=== PATIENT | male | born 1940 | race Caucasian/White ===

== ENCOUNTER 2016-10-15 07:30 | Inpatient (IN) | payer MEDICARE, BC ==
--- NOTE | 2016-10-13 05:18 | HP ---
PREOPERATIVE HISTORY AND PHYSICAL: DATE OF OFFICE VISIT: 10/09/16 DATE OF SURGERY: 10/15/16 ATTENDING SURGEON: Latasha Meier MD PROCEDURE: Left total shoulder reverse. CHIEF COMPLAINT: Left shoulder pain. HISTORY OF PRESENT ILLNESS: Mr. Mendosa is a 76-year-old male who presents to the clinic complaining of ongoing left shoulder pain for several years due to severe osteoarthritis. The patient has failed conservative measures and therefore has agreed to undergo a left total shoulder reversal with Dr. Meier 10/15/16. PAST MEDICAL HISTORY: 1. Hypertension. 2. COPD. 3. Prostate cancer. 4. Vertigo. 5. Cirrhosis. 6. Atrial fibrillation. 7. Coronary artery disease. PAST SURGICAL HISTORY: 1. Prostate biopsy. 2. Colon polyp resection. 3. Tonsillectomy and adenoidectomy. 4. Hernia repair. 5. Liver stent placement. 6. Coronary disease bypass grafting. 7. Five cardiac catheterizations. MEDICATIONS: 1. Oxygen at 2 L per minute at night, flutter use is indicated twice a day. 2. Nebulizer kit tubing and mouthpiece 1 unit nebulization every 4 to 6 hours as needed. 3. Ipratropium bromide/albuterol sulfate 0.5/2.5, 3 mg per 3 mL one unit every 6 hours as needed. 4. Symbicort 80/4.5 mcg per ACT 2 puffs twice daily. 5. Isosorbide mononitrate ER 30 mg 1 by mouth every day. 6. Fluticasone propionate 50 mcg/ACT inhaled 2 into each nostril daily. 7. Furosemide 20 mg one half tab by mouth every morning. 8. Lactulose 10 g per 50 mL, 50 mL every day in the a.m. by mouth. 9. Losartan potassium 50 mg 1 by mouth every day. 10. Spironolactone 50 mg 1 by mouth daily in the morning. 11. Ecotrin low strength 81 mg 1 tablet daily. 12. Multivitamins 1 capsule daily. 13. Tums 500 mg as needed. 14. Pantoprazole sodium 40 mg 1 by mouth every day. ALLERGIES: PENICILLIN and PRAVASTATIN. FAMILY HISTORY: Positive for heart disease and stroke. SOCIAL HISTORY: A 76-year-old male lives with his . He is a former smoker with a history of two packs of cigarettes per day. He quit in the year 1999. He denies alcohol or illicit drug use. REVIEW OF SYSTEMS: General: Negative for fevers, chills, or night sweats. No known anesthesia problems. HEENT: Positive for headaches. Negative for lightheadedness or syncopal episodes. Integumentary: Negative for abrasions, lesions, or open wounds. Cardiothoracic: Positive for mild edema and hypertension. Negative for chest pain or palpitations. Pulmonary: Positive for shortness of breath with exertion, chronic cough, and COPD. GI: Positive for GERD. Negative for nausea, vomiting, diarrhea, and constipation. : Negative for nocturia, urinary frequency, urinary urgency, history of UTIs, or kidney problems. Positive for history of prostate cancer. Musculoskeletal: Positive for the current complaint. Neuro: Negative for paresthesias, numbness , history of seizure, stroke or epilepsy. Endocrine: Negative for diabetes or thyroid issues. Hematologic: Positive for easy bleeding and bruising. Negative for anemia. Negative for history of DVT. Infectious Disease: Negative for history of MRSA, hep C, or HIV. PHYSICAL EXAMINATION GENERAL: Well-developed, well-nourished 76-year-old male, in no acute distress. VITAL SIGNS: Height 72, weight 260, blood pressure 132/70, respiratory rate 20 , BMI 35.3. HEENT: Normocephalic, atraumatic. PERRLA. NECK: Supple. Throat clear. PULMONARY: Lungs clear to auscultation bilaterally. No wheezing, rhonchi, or rales. CARDIO: Regular rate and rhythm. S1 and S2. No murmurs, rubs, or gallops. No edema. ABDOMEN: Positive bowel sounds. Soft and nontender. NEURO: Alert and oriented x3. Cranial nerves grossly intact. Sensation intact to light touch distally. MUSCULOSKELETAL: Left shoulder: Skin is intact. No erythema or warmth. No obvious deformity. Forward flexion 40 degrees, abduction to 50, external rotation to 35, internal rotation to T10, +4 to 5 strength to rotator cuff testing, +2 radial pulse. Sensation intact to light touch distally. STUDIES: X-rays and MRIs reveal superior head migration of the humeral head, severe osteoarthritis, and a complete tear of the supraspinatus and infraspinatus tendon with a partial thickness tear of the subscapularis tendon. IMPRESSION: Severe left shoulder osteoarthritis. PLAN: The patient is scheduled to undergo a left total shoulder reversal with Dr. Meier on 10/15/16. He will return to the clinic in 10-14 days postop for followup and suture removal. The patient has been cleared by his primary care physician, his wagon washer, and his multimedia instructional designer for surgery. He was instructed to stop aspirin 5 days before surgery. The patient was prescribed Percocet which was sent his pharmacy for postoperative pain management. The patient has lactulose at home for which he will use for opioid-induced constipation. BEAU PORTER [id number]/[facility] #: [id number] OTF
[2016-10-29] MEDS ORDERED: Famotidine IV* 10 MG/ML 2 ML (20 mg) IV ONE (06:00)
[2016-10-29] MEDS ORDERED: Buffered Lidocaine 1% SYR 3ML* 3 ML/SYR SYRINGE INTRADERM ONE (06:00)
[2016-10-29] MEDS ORDERED: Albuterol 2.5 MG/3 ML NEB.SOL* (0.083%) INH ONE (06:01)
[2016-10-29] MEDS ORDERED: Clindamycin 900 MG IVPREMIX(* 900 MG/50 ML SDV IV ONE (06:11)
[2016-10-29] MEDS ORDERED: Albuterol 2.5 MG/3 ML NEB.SOL* (0.083%) ONE (06:11)
[2016-10-29] MEDS ORDERED: Famotidine IV* 10 MG/ML 2 ML (20 mg) ONE (06:11)
[2016-10-29] MEDS ORDERED: Buffered Lidocaine 1% SYR 3ML* 3 ML/SYR SYRINGE ONE (06:11)
[2016-10-29] MEDS ORDERED: Bupivacaine 0.25% SDV* 30 ML ONE (07:30)
[2016-10-29] MEDS ORDERED: Midazolam* 1 MG/ML 2 ML VIAL (2 MG) ONE (07:43)
[2016-10-29] MEDS ORDERED: KETAMINE HCL* 50 MG/ML 10 ML VIAL ONE (07:43)
[2016-10-29] MEDS ORDERED: fentaNYL* 50 MCG/ML 2 ML VIAL (100 MCG VIAL) ONE (09:09)
[2016-10-29] MEDS ORDERED: EPHEDrine (Pressors)* 50 MG/ML VIAL ONE (09:18)
[2016-10-29] MEDS ORDERED: Propofol* 10 MG/ML 20 ML BTL IV PUSH ONE (09:18)
[2016-10-29] MEDS ORDERED: Dexamethasone IV* 4 MG/ML 1 ML (4 MG) ONE (09:18)
[2016-10-29] MEDS ORDERED: Lidocaine 2% MPF* 2 ML VIAL ONE (09:18)
[2016-10-29] MEDS ORDERED: Ondansetron INJ* 2 MG/ML VIAL ONE (09:18)
[2016-10-29] MEDS ORDERED: Succinylcholine* 20 MG/ML 10 ML VIAL ONE (09:18)
[2016-10-29] MEDS ORDERED: HYDROmorphone INJ* 1 MG/ML CARPUJECT SYRINGE ONE (10:21)
[2016-10-29] MEDS ORDERED: HYDROmorphone INJ* 1 MG/ML CARPUJECT SYRINGE IV PRN (10:45)
[2016-10-29] MEDS ORDERED: oxyCODONE TAB* 5 MG TAB PO PRN ×2 (10:45→12:01)
[2016-10-29] MEDS ORDERED: DiMENhydriNATE IV* 50 MG/ML VIAL IV PUSH PRN (10:45)
[2016-10-29] MEDS ORDERED: Acetaminophen TAB* 325 MG PO PRN (11:52)
[2016-10-29] MEDS ORDERED: diPHENhydraMINE IV* 50 MG/ML 1 ml VIAL (BENADRYL) IV PRN (12:01)
[2016-10-29] MEDS ORDERED: Morphine INJ* 2 MG/ML 1 ML CARPUJECT IV PRN (12:01)
[2016-10-29] MEDS ORDERED: oxyCODONE/Acetamin 5/325 MG* TAB PO PRN (12:01)
[2016-10-29] MEDS ORDERED: Magnesium Hydroxide LIQ* 30 ML UDC PO PRN (12:01)
[2016-10-29] MEDS ORDERED: Bisacodyl SUPP* 10 MG SUPP PR PRN (12:01)
[2016-10-29] MEDS ORDERED: Temazepam CAP* 15 MG PO PRN (12:01)
[2016-10-29] MEDS ORDERED: Ondansetron INJ* 2 MG/ML VIAL IV PRN (12:01)
[2016-10-29] MEDS ORDERED: Polyethylene Glycol 3350* 17 GM PACKET PO PRN (12:01)
[2016-10-29] MEDS ORDERED: Calcium Carbonate CHEW TAB* 500 MG (TUMS) PO SCH (13:00)
--- NOTE | 2016-10-29 13:06 | RAD ---
INDICATION: Total shoulder reverse left COMPARISON: June 16, 2016 TECHNIQUE: APand axillary were obtained. FINDINGS: There is interval reverse left shoulder arthroplasty. Both components appear well seated. There are soft tissue changes compatible with recent surgery. IMPRESSION: TOTAL REVERSE LEFT SHOULDER ARTHROPLASTY.
[2016-10-29 13:53] LABS: Hematocrit 39 % (42-52); Hemoglobin 13.3 g/dl (14.0-18.0)
[2016-10-29] MEDS: Clindamycin 600 MG IVPREMIX(* 600 MG/50 ML SDV IV SCH ×2 (15:33→22:00)
[2016-10-29] MEDS: Mometasone/Formoter 100/5 MDI INH SCH (19:41)
[2016-10-29] MEDS: oxyCODONE/Acetamin 5/325 MG* TAB PO PRN (20:10)
[2016-10-29] MEDS: Docusate CAP* 100 MG PO SCH (20:10)
[2016-10-29] MEDS: Omeprazole CAP* 20 MG PO SCH (20:10)
[2016-10-29] MEDS ORDERED: Albuterol/Ipratropium NEB.SOL* Albuterol 2.5 MG/Ipratropium 0.5 MG 3 ML INH SCH (21:00)
--- NOTE | 2016-10-29 22:11 | CONS ---
MEDICAL CONSULTATION: DATE OF CONSULT: 10/29/16 PRIMARY EVENT MARKETING REPRESENTATIVE: Dr. Hernandez. PRIMARY ARCHITECTURAL DRAFTING INSTRUCTOR: Dr. Shelley. PRIMARY SCARFER OPERATOR: Dr. Torres. ADMITTING PROVIDER: BEAU Will. SUPERVISING PHYSICIAN: Adalberto Harp MD. CHIEF COMPLAINT: Status post left reverse shoulder by Dr. Meier earlier today. 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 Meier earlier today. Hospitalist group has been asked to consult for medical comanagement during his hospital stay. The patient was seen by his primary care provider, Dr. Hernandez, Dr. Shelley and Dr. Torres preoperatively. The patient reports that his chronic medical conditions have been relatively well controlled. He was relatively recently treated for a pneumonia, but that has completely resolved. The patient is doing quite well postoperatively, he reports minimal pain and no significant nausea or vomiting. He has been able to resume a normal diet. PAST MEDICAL HISTORY: 1. Hypertension. 2. COPD, requiring nighttime oxygen of 2 L. 3. Prostate cancer, status post radiation. 4. Cirrhosis secondary to nonalcoholic steatohepatitis. 5. Esophageal varices, status post esophageal ligations on numerous occasions and status post TIPS procedure. 6. Chronic atrial fibrillation, not anticoagulated due to multiple variceal bleeds, followed by Dr. Hernandez. 7. Coronary artery disease, status post 5-vessel CABG with last echo showing normal left ventricular ejection fraction and a fixed defect on last Lexiscan in the inferior lateral wall. 8. Colon cancer, status post partial colectomy. 9. History of asbestos exposure. PAST SURGICAL HISTORY: 1. Prostate biopsy. 2. Left sigmoid partial colectomy. 3. Tonsillectomy. 4. Umbilical hernia repair. 5. Esophageal ligation x4. 6. TIPS in March 2013. 7. Five-vessel CABG, August 2006. HOME MEDICATIONS: 1. DuoNeb inhaled twice daily as needed for shortness of breath. 2. Aspirin 81 mg p.o. daily. 3. Symbicort 1 puff inhaled twice daily. 4. Tums 500 mg tablet 1 p.o. as needed for indigestion. 5. Fluticasone nasal spray, 2 sprays in both nares once daily. 6. Furosemide 10 mg p.o. daily. 7. Isosorbide mononitrate extended release 30 mg p.o. daily. 8. Lactulose 15 mL p.o. on Thursday, Thursday, Thursday. 9. Losartan 50 mg p.o. daily. 10. Multivitamin 1 tablet p.o. daily. 11. Protonix 40 mg p.o. b.i.d. 12. Spironolactone 50 mg p.o. daily. FAMILY HISTORY: The patient reports a family history of heart disease and stroke. SOCIAL HISTORY: The patient lives at home with his . 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 He denies any regular alcohol consumption. He was a former smoker and quit in the year 1999. Previous 70-kvvy-fneu smoking history. He has 2 children. REVIEW OF SYSTEMS: As noted above in HPI and is otherwise unremarkable. PHYSICAL EXAM: Recent vitals: Temperature 98.7 degrees Fahrenheit, pulse 58 beats per minute, respiratory rate 14 per minute, oxygen saturation 96% on room air, and blood pressure 121/47 mmHg. General: This is a very pleasant elderly gentleman, lying comfortably in the hospital bed in no acute distress. HEENT: Head is normocephalic, atraumatic and mucous membranes are pink and moist. Cardiovascular: Slightly irregular rhythm, but no murmurs, rubs or gallops appreciated. Respiratory: Lungs are clear to auscultation without wheezes, crackles, or rhonchi. Abdomen: Abdomen is mildly protuberant but no tenderness to palpation and otherwise soft. Extremities: No lower extremity edema appreciated. Left shoulder is in a sling. Psych: The patient is alert and appropriately oriented. DIAGNOSTIC STUDIES/LAB DATA: Reviewed pre-op labs from 09/17/16, which showed a pre-op hemoglobin of 15.8, CBC and comprehensive metabolic panel otherwise unremarkable. Post-op hemoglobin of 13.3 and a INR of 1.2. Imaging: Reviewed echocardiogram from 2013, which shows normal left ventricular ejection fraction. ASSESSMENT AND PLAN: This is a 76-year-old gentleman with a history of hypertension, chronic obstructive pulmonary disease, prostate cancer status post radiation, cirrhosis with chronic liver failure secondary to MORROW, esophageal varices status post ligation and TIPS procedure. Chronic atrial fibrillation, not anticoagulated, coronary artery disease status post 5-vessel CABG, colon cancer status post partial colectomy as well as asbestos exposure who is day 0 status post left reverse shoulder with Dr. Meier. 1. Status post left reverse shoulder by Dr. Meier. Surgical management per orthopedic surgery group including DVT prophylaxis, pain management, and discharge planning. 2. Hypertension - hold losartan and furosemide in the immediate postop period. Could perhaps resume on day 2 depending on labs and blood pressure. The patient is not on a beta reena chronically. 3. Chronic obstructive pulmonary disease - continue home inhaled medications including Symbicort, p.r.n. DuoNeb as well as nighttime oxygen at 2 L. 4. Chronic liver failure secondary to cirrhosis secondary to nonalcoholic steatohepatitis - continue his lactulose as stated above. Hold his furosemide at least postop day 0 and 1, likely can resume on postop day 2. Continue spironolactone. 5. Atrial fibrillation which is chronic - does not require beta-renea and is not anticoagulated due to his history of variceal bleeds. 6. Coronary artery disease, status post 5-vessel CABG - continue aspirin and isosorbide. It does not appear that he is on a statin, presumably because of his liver disease. 7. History of asbestos exposure. 8. History of colon cancer, status post partial colectomy. 9. History of esophageal varices, status post ligation and TIPS procedure - continue lactulose as previously scheduled and as needed for constipation. 10. Code status - the patient is full code. 11. DVT prophylaxis per Orthopedic Surgery. It appears that he has enoxaparin 30 mg subcu q.24 h. ordered, which seems appropriate. 12. Healthcare proxy is the patient's . DISPOSITION: Discharge planning per Orthopedic Surgery. The patient is currently in ICU for telemetry monitoring postop. Assuming that he has an uneventful night this evening, he can likely be transferred to the surgical floor tomorrow. I do not see any other acute medical concerns [place] [id number]/[facility] #: [id number] [facility]ENT[facility]ric
[2016-10-30] MEDS: oxyCODONE/Acetamin 5/325 MG* TAB PO PRN ×2 (03:04→08:51)
[2016-10-30] MEDS: Clindamycin 600 MG IVPREMIX(* 600 MG/50 ML SDV IV SCH (05:09)
[2016-10-30 05:40] LABS: Hematocrit 35 % (42-52); Hemoglobin 12.2 g/dl (14.0-18.0)
[2016-10-30 05:53] LABS: BUN/Creatinine Ratio 18.3 (8-20); EGFR African American 84.8 (>60); EGFR Non-African American 65.9 (>60); Potassium 4.9 mmol/L (3.5-5.0)
--- NOTE | 2016-10-30 07:31 | PN ---
Progress Note - Progress Note SOAP: Subjective: POD#1 from left reverse shoulder arthroplasty. feels well. no events overnight. monitored in ICU. Objective: Temp Pulse Resp BP Pulse Ox 98.8 F 51 14 123/98 96 10/30/16 04:00 10/30/16 02:00 10/30/16 07:00 10/30/16 07:00 10/30/16 07:00 NAD. pleasant. Able to flex/ext elbow/wrist.Sensate to light touch along 1st dws , index and long finger, and ulnar aspect of small finger. 2+ radial pulse. brisk cap refill. drain and dressing in place Laboratory Results - last 24 hr 10/29/16 10/30/16 10/30/16 13:47 05:23 05:23 Hgb 13.3 L 12.2 L Hct 39 L 35 L Sodium 128 L Potassium 4.9 Chloride 101 Carbon Dioxide 21 L Anion Gap 6 BUN 20 Creatinine 1.09 Est GFR ( Amer) 84.8 Est GFR (Non-Af Amer) 65.9 BUN/Creatinine Ratio 18.3 Glucose 244 H Calcium 8.0 L Assessment: POD#1 from reverse Plan: xrays reviewed and acceptable d/c drain prior to discharge. drain output 800 overnight dressing to be changed on POD#3. dispo home if stable heparin and scds while in hospital. completed 24 hours abx. appreciate hospitalist care f/u 10-14 days with me
--- NOTE | 2016-10-30 08:28 | OP ---
DATE OF OPERATION: 10/29/16 - ROOM #ICU-09 DATE OF : 42 SURGEON: Latasha Meier MD ASSISTANTS: 1. BEAU Azar 2. Stefani ANESTHESIOLOGIST: Dr. Pathak. ANESTHESIA: General interscalene block, an art line was placed. PRE-OP DIAGNOSIS: Left shoulder massive rotator cuff tear due to paralysis and mild arthritis. POST-OP DIAGNOSIS: Left shoulder massive rotator cuff tear due to paralysis and mild arthritis. OPERATIVE PROCEDURE: Left reverse shoulder arthroplasty. Open subpectoral biceps tenodesis. INDICATIONS: John Mendosa is a 76-year-old male who presented with left shoulder pain that has been going on for a year, but he recalled falls even in 2010. He said that he has had injections, he has tried physical therapy, he has lost a lot of motion and he cannot do his activities of daily living. He has failed conservative management. He has an extensive medical history including multiple cardiac catheterizations and bypass surgeries as well as a history of previous cancer. He has undergone preoperative risk assessment and optimization by his various doctors, and is prepared for surgery today. Risks and benefits were discussed at length which include but are not limited to bleeding, infection, damage to nerve vessels, surrounding structures, wound not healing, persistent pain, need for further surgery, dislocation, fracture, incomplete relief of pain and stiffness, loss of motion, risk of DVT, as well as risk of anesthesia. He has elected to proceed with surgery. The patient was initially scheduled for surgery two weeks ago, but due to the hospital not being prepared with implants or equipment, he had to be rescheduled to today. IMPLANTS USED: A 20 Aequalis SYNFlex glenohumeral stem size 8B with standard reverse tray and 6 mm reverse insert. Glenoid components were Aequalis glenoid reversed 2 threaded base plate size 25 x 40 mm and centered Glenosphere with a size 36 Glenosphere. ESTIMATED BLOOD LOSS: About 200 cc. COMPLICATIONS: None. DESCRIPTION OF PROCEDURE: The patient was greeted in the preoperative area by the attending surgeon. Correct extremity was marked. Consent was confirmed. The patient was then brought back to the operating suite where he was placed in supine position on the operating table. He then underwent interscalene block, which he tolerated without difficulty. An art line was placed due to his complicated medical history, after which the anesthesiologist placed the endotracheal tube. There was some difficulty with his intubation. After which examination of the shoulder was done, passively was allowed to forward flexion to about 130, externally rotated him to about 25, abducted to about 90 degrees. He was then placed in a lazy beach chair position with pillow under his knees , pillow on his abdomen as well as straps around his chest wall and abdomen. A Castanon catheter was placed. The left arm was prepped and draped in the usual sterile fashion with a prescrub of chlorhexidine soap and alcohol wipe and followed by ChloraPrep. After appropriate surgical pause indicating site, side, procedure, and administration of antibiotics, a deltopectoral incision was made. Beginning at the base of the coracoid, soft tissues were carefully dissected until the cephalic vein was identified at the fat stripe. This was then retracted laterally with the deltoid. The blunt dissection was then done to expose the clavipectoral fascia, which identified the abundant bursa that was present. This was carefully released and removed to expose the conjoint. A blunt Hohmann was placed just superior to the conjoint tendon. The shoulders and the capsule appeared to be quite tight. The conjoint tendon was identified and bluntly dissected with care not to place a retractor under that. A Kolbel retractor was used to retract the pec and the deltoid, and expose the anterior aspect of the shoulder. There was abundant bursa that was present, which was removed carefully. The proximal 1 cm of the pec tendon was then released sharply. The biceps was tenodesed using a nonabsorbable suture #2 Ti-Cron; this was then secured. The biceps was then sharply lacerated and tracked proximally to expose the subscap and the joint. After release of the adhesions on the bursal side as well as the subdeltoid bursa where the appropriate blunt retractors were placed. Care was taken to release the CA ligament. The three sutures were identified and cauterized. The subscapularis was gently peeled back with care and gentle external rotation of the shoulder; this was then tagged to help with retraction. This was removed completely and exposed the shoulder. The shoulder was then gently dislocated. The superior glenohumeral ligament was released and the shoulder was carefully dislocated. At this point , it was evident there was a massive supra- and infraspinatus tendon tear, and they were not present. Retractors were gently placed along the subdeltoid space , posterior head, and along the glenoid aspect so that the head was fully exposed. This was to allow for a full visualization of the head. There were no obvious major osteophytes. The neck cut was then outlined and marked with a Bovie. The sagittal saw was then used to cut the humeral head. This was all done very carefully with meticulous care to prevent any kind of nerve damage. At this point, the canal finder was used to find the canal, and the sounding guides were used to sound up to a size 8. The broaches were placed at 20- degree retroversion angle. These were then packed and placed, and a size 7 initially was found to have excellent purchase. The excess bone was then reamed away, and the protection plate was placed in the implant. Attention was directed to the glenoid. With a Hohmann retractor placed superiorly, the Fukuda retractor was placed posteriorly along the glenoid back wall with gentle retraction. The anterior adhesions at the subscapularis were carefully removed bluntly with care not to damage the short head of the biceps. With tension on the subscap, the middle and inferior glenohumeral ligaments were released carefully to allow for better exposure and mobilization of the subscap. The glenoid neck retractor was then used to retract the subscap and expose the anterior aspect of the glenoid. The labrum was then sharply incised as well as the superior labrum and the biceps stump as well as the anterior labrum all the way to the 5 o'clock position was then released using needle tip Bovie. Then with care and traction on the inferior tissues, the needle tip Bovie was used to carefully release the inferior aspect of the labrum to expose the inferior aspect of the glenoid, again with traction and care not to damage the nerve or any vessels. After this was done, with great care any remaining cartilage was removed off with the Huston. The size 25 guide was then placed to fit the glenoid, which was not very large. Once this was placed in the zero position, a drill guide was placed. This was then attempted to be palpated and was not palpated. At this point, this was then reamed with a size 25 reamer and then a size 29 brush filler hand. The 8 mm drill bit was then placed in a cannulated fashion to drill the larger aperture hole and then a 6 wide drill bit was drilled. It was found to measure greater than 40 mm. Therefore, a size 40 mm length base plate x 25 mm base plate was chosen. The screw within the hole was then tapped and then the base plate was placed with excellent purchase. Four variable angle locking screws were then drilled superiorly and inferiorly, and then anteriorly and posteriorly. Screws were placed with excellent purchase. Next, a size 36 Glenosphere was impacted in place with good purchase. This was then screwed down and secured with a set screw. Attention was then directed to the humerus. The humerus was then delivered through the wound. The protection plate was removed and the stem was assessed and was found to not move. Therefore, a trialing was done with a standard centered plate and a size 6 poly. An attempt at reduction was done and it was felt to be a little bit too tight and difficult to go in. Possibly due to his high riding humeral head preoperatively. Therefore, the stem was removed and about 1 mm more of the humerus was then cut. The reaming was done again beginning at a size 6 broach and then increased to a size 8 broach was found to seat well with excellent purchase. This was then reamed. The centered base plate and standard 6 mm poly was then used and the shoulder was reduced and taken through a range of motion. This allowed to have an appropriate amount of shuck, forward flexion to about 150 degrees, externally rotate to about 25 degrees, abduct to about 90 degrees. The implants were then chosen, the shoulder was dislocated. Implants were removed en mass, and taken to the back table to be prepared by the attending surgeon. A 2-0 drill bit was then used to drill holes through the lesser tuberosity and allow for passage of the sutures for subscap repair. These were passed superomedial and inferior. The #5 Ethibond sutures were passed through these. The final implant was prepared on the back table and then it was carefully impacted into place with good purchase. The shoulder was then reduced and the implants were found to be well seated. Shoulder was taken through a range of motion, which was the exact same that was done as during the trial. Wound was then copiously irrigated with sterile saline. Excess debris was removed. Sutures were then passed through the subscapularis tendon for horizontal mattress fixation with excellent purchase. A large Hemovac drain was then placed through the wound. The deltopectoral groove was closed with three nonabsorbable sutures to allow for landmark if he needs any surgery. Skin was closed in layers with 2-0 Vicryl for subcu and skin with 3-0 Monocryl. Sterile dressings were applied. 15 cc of Marcaine were injected about the wound. A Cryo/Cuff and a regular sling was then done, and he was awoken from anesthesia and transferred to PACU in stable condition. POSTOPERATIVE PLAN: He will be nonweightbearing for 6 weeks. He will have no active range of motion of the shoulder, he will be in the sling during this time. He will be allowed to have passive range of motion to about 90 degrees of forward flexion and abduction, and about 20 degrees of external rotation. He will be initially transferred to the ICU for monitor because of his cardiac history; he will be admitted at least overnight. We will remove the Castanon as well as the drain on postop day #1, and he will potentially be discharged then. He will be kept in the hospital with SCDs and Lovenox for DVT prophylaxis but discontinued when he goes home. We will see the patient back in 10 to 14 days. CC: Jesse WHITFIELD DO* [id number]/[facility] #: [id number] OTF
[2016-10-30] MEDS: Omeprazole CAP* 20 MG PO SCH (08:51)
[2016-10-30] MEDS: Mometasone/Formoter 100/5 MDI INH SCH (08:52)
[2016-10-30] MEDS: Docusate CAP* 100 MG PO SCH (08:56)
[2016-10-30] MEDS ORDERED: Fluticasone NASAL SPRAY 50MCG* 16 gm SPRAY BTL BOTH NARES SCH (09:00)
[2016-10-30] MEDS ORDERED: Isosorbide Mononitrate ER TAB* 30 MG PO SCH (09:00)
[2016-10-30] MEDS ORDERED: Losartan TAB* 25 MG PO SCH (09:00)
[2016-10-30] MEDS ORDERED: Furosemide TAB* 20 MG PO SCH (09:00)
[2016-10-30] MEDS ORDERED: Aspirin EC Low Dose* 81 MG TAB.EC PO SCH (09:00)
[2016-10-30] MEDS ORDERED: Spironolactone TAB* 25 MG PO SCH (09:00)
--- NOTE | 2016-10-30 10:41 | PN ---
Subjective Date of Service: 10/30/16 Interval History: Patient seen and examined at bedside. Pt states that he is feeling well and his pain is controlled. Denies fever, chills, chest discomfort, N/V/D. Pt has not urinated since his catheter was removed this AM. Reports shortness of breath, but states that this is at his baseline. Pt has been weaned off O2. Tele: Afib, rate 40-50's. Family History: Unchanged from Admission Social History: Unchanged from Admission Past Medical History: Unchanged from Admission Objective Active Medications: Acetaminophen (Tylenol Tab*) 650 mg PO Q4H PRN Reason: PAIN OR TEMPERATURE Albuterol/Ipratropium (Duoneb Neb.Nurys*) 1 neb INH BID SOFIE Aspirin (Aspirin Ec Low Dose*) 81 mg PO DAILY SOFIE Bisacodyl (Dulcolax Supp*) 10 mg ND DAILY PRN Reason: constipation Calcium Carbonate (Tums*) 500 mg PO .SEE INSTRUCTIONS SOFIE Diphenhydramine HCl (Benadryl Iv*) 12.5 mg IV Q6H PRN Reason: PRURITIS Docusate Sodium (Colace Cap*) 100 mg PO BID SOFIE Enoxaparin Sodium (Lovenox(*)) 30 mg SUBCUT Q24H SOFIE Fluticasone Propionate (Flonase Nasal [place] 50mcg*) 2 spray BOTH NARES QAM SOFIE Lactated Ringer's (Lactated Ringers 1000 Ml Bag*) 1,000 mls @ 75 mls/hr IV PER RATE SOFIE Isosorbide Mononitrate (Imdur Er Tab*) 30 mg PO QAM SOFIE Lactulose (Lactulose*) 30 ml PO Q6H PRN Reason: constipation Lactulose (Lactulose*) 15 ml PO MoWeFr@0900 SOFIE Magnesium Hydroxide (Milk Of Magnesia Liq*) 30 ml PO Q6H PRN Reason: constipation Mometasone Furoate/Formoterol Fumar (Dulera 100/5 Mdi*) 2 puff INH BID SOFIE Morphine Sulfate (Morphine Inj (Syringe)*) 2 mg IV Q2H PRN Reason: PAIN Omeprazole (Prilosec Cap*) 20 mg PO BID SOFIE Ondansetron HCl (Zofran Inj*) 4 mg IV Q6H PRN Reason: nausea Oxycodone HCl (Roxycodone Tab*) 5 mg PO ONCE PRN Reason: PAIN - MODERATE Stop: 10/30/16 10:46 Oxycodone HCl (Roxycodone Tab*) 10 mg PO Q4H PRN Reason: PAIN - SEVERE Oxycodone/Acetaminophen (Percocet 5/325 Tab*) 1 tab PO Q3H PRN Reason: PAIN - MODERATE Oxycodone/Acetaminophen (Percocet 5/325 Tab*) 2 tab PO Q3H PRN Reason: PAIN - MODERATE Polyethylene Glycol/Electrolytes (Miralax*) 17 gm PO DAILY PRN Reason: Constipation Spironolactone (Aldactone Tab*) 50 mg PO QAM SOFIE Temazepam (Restoril Cap*) 15 mg PO BEDTIME PRN Reason: INSOMNIA Vital Signs 10/29/16 10/29/16 10/29/16 11:53 12:00 12:05 Temperature 98.2 F Pulse Rate 72 79 74 Respiratory 18 16 16 Rate Blood Pressure 140/56 125/55 123/45 (mmHg) O2 Sat by Pulse 96 95 95 Oximetry 10/29/16 10/29/16 10/29/16 12:10 12:15 12:30 Temperature Pulse Rate 76 71 67 Respiratory 17 16 16 Rate Blood Pressure 115/52 131/56 123/59 (mmHg) O2 Sat by Pulse 94 95 94 Oximetry 10/29/16 10/29/16 10/29/16 12:45 13:00 13:15 Temperature 97.7 F 97.9 F Pulse Rate 73 72 77 Respiratory 16 16 15 Rate Blood Pressure 128/56 138/43 126/65 (mmHg) O2 Sat by Pulse 96 95 95 Oximetry 10/29/16 10/29/16 10/29/16 13:29 14:00 14:42 Temperature Pulse Rate 64 65 Respiratory 14 14 14 Rate Blood Pressure (mmHg) O2 Sat by Pulse 96 97 Oximetry 10/29/16 10/29/16 10/29/16 15:00 16:00 17:00 Temperature 98 F Pulse Rate 68 66 69 Respiratory 14 16 16 Rate Blood Pressure (mmHg) O2 Sat by Pulse 96 95 95 Oximetry 10/29/16 10/29/16 10/29/16 17:56 18:00 19:00 Temperature Pulse Rate 86 Respiratory 19 17 15 Rate Blood Pressure (mmHg) O2 Sat by Pulse 96 97 Oximetry 10/29/16 10/29/16 10/29/16 19:44 20:00 21:00 Temperature 98.7 F Pulse Rate Respiratory 14 17 Rate Blood Pressure (mmHg) O2 Sat by Pulse 96 96 95 Oximetry 10/29/16 10/29/16 10/29/16 22:00 23:00 23:34 Temperature Pulse Rate Respiratory 12 19 11 Rate Blood Pressure (mmHg) O2 Sat by Pulse 94 94 95 Oximetry 10/29/16 10/30/16 10/30/16 23:40 00:00 00:02 Temperature Pulse Rate Respiratory 15 11 11 Rate Blood Pressure 144/93 97/44 (mmHg) O2 Sat by Pulse 95 96 96 Oximetry 10/30/16 10/30/16 10/30/16 00:04 00:10 01:00 Temperature 97.8 F Pulse Rate 53 57 Respiratory 13 14 Rate Blood Pressure 107/44 102/65 (mmHg) O2 Sat by Pulse 95 97 Oximetry 10/30/16 10/30/16 10/30/16 01:59 02:00 03:00 Temperature Pulse Rate 51 Respiratory 19 11 13 Rate Blood Pressure 98/47 (mmHg) O2 Sat by Pulse 95 97 Oximetry 10/30/16 10/30/16 10/30/16 03:02 03:06 04:00 Temperature 98.8 F Pulse Rate Respiratory 12 Rate Blood Pressure 91/55 111/61 (mmHg) O2 Sat by Pulse 97 96 95 Oximetry 10/30/16 10/30/16 10/30/16 04:11 05:00 05:09 Temperature Pulse Rate Respiratory 14 13 14 Rate Blood Pressure 116/47 (mmHg) O2 Sat by Pulse 96 Oximetry 10/30/16 10/30/16 10/30/16 06:00 07:00 07:36 Temperature 98.4 F Pulse Rate Respiratory 16 12 Rate Blood Pressure 116/80 123/98 (mmHg) O2 Sat by Pulse 98 96 Oximetry 10/30/16 10/30/16 10/30/16 08:00 09:00 09:58 Temperature Pulse Rate 52 53 Respiratory 13 20 18 Rate Blood Pressure 132/75 140/92 (mmHg) O2 Sat by Pulse 97 94 Oximetry Oxygen Devices in Use Now: None Appearance: NAD, sitting up in a chair. Eyes: No Scleral Icterus, PERRLA Ears/Nose/Mouth/Throat: NL Teeth, Lips, Gums, Mucous Membranes Moist Neck: NL Appearance and Movements; NL JVP, Trachea Midline Respiratory: Symmetrical Chest Expansion and Respiratory Effort, Clear to Auscultation Cardiovascular: NL Sounds; No Murmurs; No JVD, - - Heart rate irregular Abdominal: NL Sounds; No Tenderness; No Distention - Bowel sounds present Extremities: No Edema Skin: No Rash or Ulcers, - - Dressing to left shoulder clean, dry and intact. Neurological: Alert and Oriented x 3, NL Muscle Strength and Tone Lines/Tubes/Other Access: Clean, Dry and Intact Peripheral IV - site benign Nutrition: Taking PO's Result Diagrams: 10/30/16 05:23 10/30/16 05:23 Microbiology and Other Data: Microbiology 10/29/16 14:30 Nasal Screen MRSA (PCR)(KATIANA) - Final Nasal Mrsa Negative Assess/Plan/Problems-Billing Assessment: Mr. 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 Meier. - Patient Problems (1) Status post reverse arthroplasty of left shoulder Code(s): Z96.612 - PRESENCE OF LEFT ARTIFICIAL SHOULDER JOINT SNOMED Code(s): 099288535 Comment: POD #1. Management per Ortho. HH stable. Continue pain management. (2) HTN (hypertension) Code(s): I10 - ESSENTIAL (PRIMARY) HYPERTENSION SNOMED Code(s): 21996352 Comment: SBP 90-150's. Resume Losartan and Lasix (3) COPD (chronic obstructive pulmonary disease) Code(s): J44.9 - CHRONIC OBSTRUCTIVE PULMONARY DISEASE, UNSPECIFIED SNOMED Code(s): 33995946 Comment: Continue Symbicort, PRN duoneb and O2 2L via NC at HS. (4) Chronic liver failure Code(s): K72.10 - CHRONIC HEPATIC FAILURE WITHOUT COMA SNOMED Code(s): 431069943 Comment: - Secondary to cirrhosis, secondary to nonalcoholic steatohepatitis. - Continue lactulose and spironolactone - Resume Lasix in the AM. (5) Chronic a-fib Code(s): I48.2 - CHRONIC ATRIAL FIBRILLATION SNOMED Code(s): 689804793 Comment: - Rate controlled - Pt is not anticoagulated d/t history of variceal bleeds (6) CAD (coronary artery disease) Code(s): I25.10 - ATHSCL HEART DISEASE OF [place] CORONARY ARTERY W/O ANG PCTRS SNOMED Code(s): 22235191 Comment: - Stable - Continue ASA, isosorbide (7) DVT prophylaxis Code(s): GPS5262 - SNOMED Code(s): 506787600 Comment: Lovenox per Ortho (8) Full code status Code(s): Z78.9 - OTHER SPECIFIED HEALTH STATUS SNOMED Code(s): 229192568 Status and Disposition: Inpatient. Disposition per Ortho
--- NOTE | 2016-10-30 12:13 | PN ---
Progress Note - Progress Note Note: RIGHT arm hemovac drain removed without complications, sterile surgical dressing remained intact, no complications, pain noted. Patient will follow up with DR. Meier within one week following discharge.
[2016-10-30] MEDS ORDERED: Enoxaparin(*) 30 MG/0.3 ML SYR SUBCUT SCH (13:00)
[2016-10-30 15:29] VITALS: BP 115/51
[2016-10-31] MEDS ORDERED: Lactulose* 15 ML UDC PO SCH (09:00)
--- NOTE | 2016-11-02 22:30 | DS ---
DISCHARGE SUMMARY: DATE OF ADMISSION: 10/29/16 DATE OF DISCHARGE: 10/30/16 ATTENDING PHYSICIAN: Latasha Meier MD ADMITTING DIAGNOSIS: Left reverse shoulder arthroplasty. POSTOPERATIVE DIAGNOSIS: Left reverse shoulder arthroplasty. CONSULTS: Medicine. HISTORY OF PRESENT ILLNESS: John Mendosa is a 76-year-old male who has underwent left shoulder reverse arthroplasty on 10/29/16. He tolerated the procedure without any complications. Preoperati vely, an art line and Castanon were placed and he was monitored closely. He was transferred to the ICU postoperatively for closer monitoring due to his complex medical history. He did not require any f urther intervention. His hematocrit was stable at 35 and he was asymptomatic. He was able to mobil ize with physical therapy and he was stable for discharge on postop day 1. He received 24 hours of postoperative antibiotics. He was on DVT prophylaxis as well as SCDs while in the hospital. A drai n was also placed intraoperatively, which was removed postoperatively with slightly more than 800 cc of sanguineous fluid. He had no complaints of chest pain, shortness of breath, nausea, vomiting. His pain was well controlled and he was stable for discharge. DISCHARGE MEDICATIONS: As per the electronic medical record include Percocet for postoperative pain control. PENDING LABS: None. COMPLICATIONS: None. FOLLOWUP: He will follow up with Dr. Meier in 10 to 14 days and he will follow up with his PCP as scheduled. [id number]/[facility] #: [id number]
== END 2016-10-30 15:45 | disposition home or self-care (01) | DRG 483 ==
LOC: INTOOBSV 10-29 05:43 → AA 10-29 05:43 → ICU 10-29 11:52 → OBSVTOIN 10-29 12:00
PROVIDERS: ADMIT Orthopaedic Surgery; ATTEND Orthopaedic Surgery
PROC: 0LS40ZZ Reposition Left Upper Arm Tendon, Open Approach (ICD-10-PCS; 2016-10-29)
PROC: 0RRK00Z Replacement of Left Shoulder Joint with Reverse Ball and Socket Synthetic Substitute, Open Approach (ICD-10-PCS; principal; 2016-10-29 07:30)
DX: M19.012 Primary osteoarthritis, left shoulder (principal); Z99.81 Dependence on supplemental oxygen; I48.2 Chronic atrial fibrillation; G62.9 Polyneuropathy, unspecified; J44.9 Chronic obstructive pulmonary disease, unspecified; I48.91 Unspecified atrial fibrillation; K74.0 Hepatic fibrosis; K72.10 Chronic hepatic failure without coma; I10 Essential (primary) hypertension; M75.102 Unspecified rotator cuff tear or rupture of left shoulder, not specified as traumatic; K21.9 Gastro-esophageal reflux disease without esophagitis; I44.0 Atrioventricular block, first degree; K75.81 Nonalcoholic steatohepatitis (NASH); I25.10 Atherosclerotic heart disease of native coronary artery without angina pectoris; K74.60 Unspecified cirrhosis of liver; I73.9 Peripheral vascular disease, unspecified; Z95.1 Presence of aortocoronary bypass graft; Z87.442 Personal history of urinary calculi; Z87.891 Personal history of nicotine dependence; Z86.010 Personal history of colon polyps; Z82.3 Family history of stroke; Z88.8 Allergy status to other drugs, medicaments and biological substances; Z88.0 Allergy status to penicillin; Z85.46 Personal history of malignant neoplasm of prostate; Z85.038 Personal history of other malignant neoplasm of large intestine; Z77.090 Contact with and (suspected) exposure to asbestos
CPT/HCPCS: 36415; 80048; 85014; 85018; 85610; 86850; 86900; 86901; 87641; 88304; 88311; 94640; 94760; A9270-GY; C1713; C1776; G0378; J0330; J1100; J1170; J2250; J2270; J2405; J2704; J3010

== ENCOUNTER 2017-01-09 17:27 | Emergency (ER) | payer MEDICARE, BC ==
[2017-01-09] MEDS ORDERED: methylPREDNISolone SOD SUCC* 125 MG 2 ML VIAL IM ONE (18:43)
[2017-01-09] MEDS ORDERED: Albuterol 2.5 MG/3 ML NEB.SOL* (0.083%) INH ONE (18:43)
[2017-01-09] MEDS ORDERED: Ipratropium 0.5MG/2.5ML NEB* 0.5 MG/2.5 ML NEB.SOLN INH ONE (18:43)
--- NOTE | 2017-01-09 19:59 | RAD ---
Indication: Shortness of breath. Comparison is made with previous exam dated September 03, 2016. Cardiomegaly is noted. Patient is status post changed sternal thoracotomy. Chronic pleural changes are noted in the left lung base which is unchanged from previous exam. No pleural fluid or pneumonia is identified. IMPRESSION: Likely chronic pleural changes in the left lung base which is not significantly changed since September 03, 2016.
[2017-01-09 20:21] VITALS: BP 122/55
[2017-01-09] MEDS ORDERED: Doxycycline (NF) 100 MG TAB PO ONE (20:40)
[2017-01-09] MEDS ORDERED: DOXYcycline CAP(*) 100 MG PO ONE (20:42)
--- NOTE | 2017-01-19 09:59 | UC ---
Saroj Brock Erika, scribed for Zo Ricketts DO on 01/09/17 at 1830 . Respiratory Complaint HPI - HPI Summary HPI Summary: Patient is a 76-year-old male presenting to [facility] with a CC of cough starting yesterday. Cough is slightly productive. Patient also reports SOB, worse with exertion. Associated symptoms include sinus congestion. Patient used a nebulizer treatment 2x/day, and used one this morning without relief. He denies any other symptoms, including nausea, vomiting, abdominal pain, pain in the left , neck, jaw, or shoulder, and dizziness. Patient does report recent exposure to pneumonia. Hx A Fib. - History of Current Complaint Chief Complaint: UCRespiratory Stated Complaint: SOB Time Seen by Provider: 01/09/17 17:30 Hx Obtained From: Patient, Family/Mounting Inspector Onset/Duration: Gradual Onset, Lasting Days, Still Present Timing: Constant Severity Initially: Mild Severity Currently: Moderate Pain Intensity: 0 Pain Scale Used: 0-10 Numeric Character: Cough: Productive Alleviating Factors: Nothing Associated Signs And Symptoms: Positive: Dyspnea, Sinus Discomfort - Allergies/Home Medications Allergies/Adverse Reactions: Allergies Allergy/AdvReac Type Severity Reaction Status Date / Time Penicillins Allergy Mild Rash Verified 01/09/17 17:51 Pravastatin Allergy Mild muscle pain Verified 01/09/17 17:51 PMH/Surg Hx/FS Hx/Imm Hx Endocrine History Of: Denies: Diabetes, Thyroid Disease Cardiovascular History Of: Reports: Cardiac Disorders - CAD s/p cardiac cath x 5 , s/p CABG, Afib, Hypertension, Congestive Heart Failure - CABGX5 2006, Atrial Fibrillation Denies: Pacemaker/ICD Respiratory History Of: Reports: COPD Denies: Asthma GI/ History Of: Denies: Ulcer, Renal Disease Cancer History Of: Reports: Prostate Cancer - Surgical History Surgical History: Yes Surgery Procedure, Year, and Place: 5 stent bypass SX [address] [facility] in [place] - EGD BANDING X3. 2011 STERNAL WIRE [place] -LIVER STENT(TIPS)SAFE FOR 1.5 ONLY IN OTHER FACILITY FILE. 2007 SIGMOID RESECTION [facility] [place]. 2014 VENTRAL HERNIA REPAIR [facility] [place]. BASAL CA EXCISION - Family History Known Family History: Positive: Cardiac Disease - Social History Occupation: Retired Alcohol Use: None Alcohol Amount: NONE Substance Use Type: None Smoking Status (MU): Former Smoker Type: Cigarettes Amount Used/How Often: 2 PPD Length of Time of Smoking/Using Tobacco: 30 YRS Have You Smoked in the Last Year: No When Did the Patient Quit Smoking/Using Tobacco: 1999 - Immunization History Most Recent Influenza Vaccination: 2015 Most Recent Tetanus Shot: 2009 Most Recent Pneumonia Vaccination: 2014 Review of Systems Constitutional: Negative Skin: Negative Eyes: Negative ENT: Other - sinus congestion Respiratory: Shortness Of Breath, Cough Cardiovascular: Negative Gastrointestinal: Negative Genitourinary: Negative Motor: Negative Neurovascular: Negative Musculoskeletal: Negative Neurological: Negative Psychological: Negative All Other Systems Reviewed And Are Negative: Yes Physical Exam Triage Information Reviewed: Yes Appearance: Well-Appearing, No Pain Distress, Well-Nourished Vital Signs: Initial Vital Signs Temp 98.8 F 01/09/17 17:47 Pulse 48 01/09/17 17:47 Resp 20 01/09/17 17:47 BP 138/56 01/09/17 17:47 Pulse Ox 95 01/09/17 17:47 Vital Signs Reviewed: Yes Eyes: Positive: Conjunctiva Clear. Negative: Discharge ENT: Positive: Hearing grossly normal. Negative: Muffled/hoarse voice Neck: Positive: Supple, Nontender Respiratory: Positive: No accessory muscle use, Other: - Mild to moderate respiratory distress, tight wheezes diffusely, decreased breath sounds at the left base Cardiovascular: Positive: No Murmur, Other: - Irregularly irregular rhythm Musculoskeletal Exam: Normal Neurological: Positive: Alert, Muscle Tone Normal Psychological Exam: Normal Psychological: Positive: Age Appropriate Behavior Skin Exam: Other - warm, dry, normal color UC Diagnostic Evaluation - Laboratory O2 Sat by Pulse Oximetry: 95 Diagnostic Studies Comment: EKG at 17:40. A Fib at 54 bpm. No ectopy. CXR read by radiologist - IMPRESSION: Likely chronic pleural changes in the left lung base which is not significantly changed since September 03, 2016. Re-Evaluation - Re-Evaluation First Eval Re-Evaluation Time: 20:33 Change: Improved Comment: Feeling improved. Left lower lobe had improved air movment, equal to right lobe. Respiratory Course/Dx - Differential Dx/Diagnosis Provider Diagnoses: COPD exacerbation - Physician Notification/Consults Discussed Patient Care With: Dr. Sibley (cardiology) at 18:30 - discussed EKG and recommendations. EKG is not acute. Discharge - Discharge Plan Condition: Stable Disposition: HOME Prescriptions: DOXYcycline CAP(*) [DOXYcycline 100MG CAP(*)] 100 mg PO BID #19 cap guaiFENesin ER TAB [Mucinex*] 600 mg PO BID PRN #1 box PRN Reason: Cough predniSONE TAB* [Deltasone TAB*] 40 mg PO DAILY #8 tab Patient Education Materials: COPD (Chronic Obstructive Pulmonary Disease) (ED) Referrals: Jesse Haywood DO [Primary Care Provider] - (Follow up on 01/12/17. Follow up sooner if symptoms worsen or new ones develop.) Additional Instructions: DOXYCYCLINE: Doxycycline (Vibramycin, Doryx) is an antibiotic of the tetracycline family. This type of drug is useful for infections of the respiratory tract and genital tract, and is sometimes used for intestinal infections. Unlike most tetracyclines, doxycycline can be taken with food. It is longer acting, and (usually) less prone to side effects than regular tetracycline. Tetracycline antibiotics can stain immature teeth and SHOULD NOT BE TAKEN BY CHILDREN, NURSING MOTHERS, OR WOMEN. Tetracyclines can make you more prone to sunburn. Abdominal cramping, nausea, and diarrhea are occasional side effects. Women may experience vaginal yeast infections. Call the doctor at once if you develop hives, itching, shortness of breath , or lightheadedness. DISCUSSED, DOXY ALSO INCREASES YOUR RISK OF SUNBURN. COVER UP WHEN YOU GO OUTSIDE. ANY TIME YOU TAKE AN ANTIBIOTIC, IT IS IMPORTANT TO REPLENISH THE BODY'S BALANCE OF "GOOD" BACTERIA BY EATING HIGH QUALITY CULTURED FOOD SUCH YOGURT, SAURKRAUT OR NISHA CHI AND/OR TAKING A PROBIOTIC SUPPLEMENT. INHALED BRONCHODILATORS: USE YOUR DUONEB EVERY FOUR HOURS WHILE AWAKE WHILE SYMPTOMS OF SHORTNESS OF BREATH PERSIST You have received a prescription for an inhaled bronchodilator -- a medication which stimulates the airways in the lung to dilate. This improves the flow of air in asthma, bronchitis, and emphysema. These medicines have some similarity to adrenaline, and can cause similar side effects: shakiness, racing heart, and a sense of nervousness. These side effects decrease with time. Contact your doctor if these side effects are severe. Do not over-use the medicine. Too-frequent use of the inhaler may make it ineffective. Call your doctor if the inhaler is not controlling your symptoms at the prescribed doses. EXPECTORANT MEDICATION: An expectorant medicine has been prescribed. This type of drug makes mucous thinner, helping the sinuses, nose, and bronchial tubes to remain free of pus and mucous. Expectorants make a cough less severe and more comfortable, and help infected sinuses drain. In general, antihistamines defeat the purpose of the expectorant by making mucous thicker. They should be avoided unless specifically recommended by your physician. CORTICOSTEROID MEDICATION: You have been given a medicine of the cortisone class. This medication is used to control inflammation or allergy. It is usually only given for a short period of time, until the acute process subsides. There are usually no side effects from short-term use of cortisone-like medications. Some persons feel an increased sense of well-being and are not sleepy at bedtime. Long-term use of cortisone medications is best avoided, unless required for a severe condition. If your condition does not remit, or relapses after the course of corticosteroid medication, you should consult your physician. Contact the physician if you develop lightheadedness, black or tarry stools , swelling of the legs, or significant rapid change in weight. The documentation as recorded by the Saroj hidalgo Erika accurately reflects the service I personally performed and the decisions made by , oZ Ricketts DO.
== END 2017-01-09 20:53 | disposition home or self-care (01) ==
LOC: UCEAST 17:27
DX: J44.1 Chronic obstructive pulmonary disease with (acute) exacerbation (principal); I25.10 Atherosclerotic heart disease of native coronary artery without angina pectoris; Z95.1 Presence of aortocoronary bypass graft; I10 Essential (primary) hypertension; I48.91 Unspecified atrial fibrillation; I50.9 Heart failure, unspecified; Z85.46 Personal history of malignant neoplasm of prostate; Z88.0 Allergy status to penicillin; Z87.891 Personal history of nicotine dependence
CPT/HCPCS: 71020; 93005; 96372; 99213; A9270-GY; G0463; J2930; J7644

== ENCOUNTER 2017-10-05 00:26 | Inpatient (IN) | payer MEDICARE, OTHER ==
--- OUTSIDE RECORDS SUMMARY | 2017-10-05 01:00 | XMS REPORT ---
:1940 External Reference #:[id number] Author Organization [facility] Address [address] [address] Phone [phone] Care Team Providers Name Role Phone Ailin Burroughs MD Care Team Information Insurance Healthcare Consultant Unavailable Jesse Haywood DO Primary Care Physician Unavailable Payers Type Date Identification Numbers Payment Provider Subscriber Medicare Primary Effective: Policy Number: Medicare Reggie Mendosa 2005 [id number] PayID: [id number] [address] [place] [address] [facility] Part B Policy Number: [id number] [facility] Reggie Mendosa PayID: [id number] [address] [place] [address] Problems Date Description Provider Status Onset: 11/29/2013 Hyperlipidemia Chuy Hernandez M.D., [facility], Active [facility] Onset: 11/29/2013 Essential hypertension Chuy Hernandez M.D., [facility], Active [facility] Onset: 11/29/2013 Conduction disorder of the heart Chuy Hernandez M.D., [facility], Active [facility] Onset: 11/29/2013 Chronic ischemic heart disease Chuy Hernandez M.D., [facility], Active [facility] Onset: 01/12/2014 Sinus node dysfunction Chuy Hernandez M.D., [facility], Active [facility] Onset: 01/12/2014 Atrial fibrillation Chuy Hernandez M.D., [facility], Active [facility] Onset: 01/12/2014 Aortic valve disorder Chuy Hernandez M.D., [facility], Active [facility] Onset: 11/01/2014 Difficulty breathing Evelina Shelley MD Active Onset: 11/01/2014 Pulmonary emphysema Evelina Shelley MD Active Onset: 11/01/2014 Cough Evelina Shelley MD Active Onset: 11/01/2014 Gastroesophageal reflux disease Evelina Shelley MD Active Onset: 11/01/2014 Allergic rhinitis Evelina Shelley MD Active Onset: 11/20/2014 Disorder of lung Evelina Shelley MD Active Onset: 10/17/2015 Chronic atrial fibrillation Chuy Hernandez M.D., [facility], Active [facility] Onset: 10/26/2015 Dyspnea Chuy Hernandez M.D., [facility], Active [facility] Onset: 10/26/2015 Obesity Chuy Hernandez M.D., [facility], Active [facility] Onset: 01/25/2016 Hypoxemia Evelina Shelley MD Active Onset: 02/04/2016 Chest pain Chuy Hernandez M.D., [facility], Active [facility] Onset: 03/31/2016 Persistent atrial fibrillation Chuy Hernandez M.D., [facility], Active [facility] Onset: 03/31/2016 Paroxysmal ventricular tachycardia Chuy Hernandez M.D., [facility] , Active [facility] Onset: 08/14/2016 Full thickness rotator cuff tear Latasha Meier MD Active Onset: 08/14/2016 Localized, primary osteoarthritis Latasha Meier MD Active of the shoulder region Onset: 09/15/2016 Preoperative cardiovascular Chuy Hernandez M.D., [facility], Active examination [facility] Onset: 09/15/2016 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., [facility], Active coronary artery w/o ang pctrs [facility] Onset: 01/08/2017 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 Family History Date Family Member(s) Problem(s) Comments General non contibutory Father non contributory : (age 75 Years) Father due to COPD Father Black Lung : (age 75 Years) Mother due to ID Mother Stroke Siblings 8 Siblings 1 sister alive and well; all others First Brother due to Heart Disease () First Brother due to Diabetes () Second Brother due to Cancer, Lung () Third Brother due to Stroke () : (age 8 Years) Fourth Brother due to Unknown Causes Social History Type Date Description Comments Lives With Cigarette Use Former Cigarette Smoker ETOH Use Denies alcohol use Smoking Patient is a former smoker hx 2 pack cigarettes per day, quit 2000 Recreational Drug Use Never Used Drugs Daily Caffeine Does Not Consume Caffeine Exercise Type/Frequency Exercises rarely Allergies, Adverse Reactions, Alerts Date Description Reaction Status Severity Comments 07/20/2006 PCN active rash 09/30/2012 Pravastatin muscle aches active 03/13/2017 Doxycycline Nausea and Vomiting active Severe 09/17/2017 Beta Adrenergic Blockers active bradycardia Medications Medication Date Status Form Strength Qnty SIG Indications Ordering Provider Torsemide 09/24 Active Tablets 20mg 60tab take 2 Husam S. s tablets by Nelson, mouth daily DO [facility] Metolazone 09/24 Active Tablets 5mg 30tab take one Husam . s tablet with Nelson, torsemide DO [facility] three days a week on Thursday, , and Thursday. Nystatin 09/21 Active Suspension [id number] 120ml 4 Husam t/ML milliliters Nelson, four times DO [facility] a day, swish and swallow for 14 days Ranitidine HCL 06/16 Active Capsules 300mg take 1 tablet two times a day Tamsulosin HCL 05/03 Active Capsules 0.4mg 1 by mouth two times day Proair HFA 11/07 Active Aerosol 108(90Bas 8.500 1 puff e) gm every 6 Karsten, mcg/Act hours as MD needed Oxygen 06/20 Active Misc 1unit 4L s continuousl Karsten y (pt MD increased 09/29/17) Flutter 06/12 Active Device 1unit use as J43.9 s instructed Karsten, twice a day Nebulizer 01/24 Active Kit 1unit 1 unit Evelina Kit/Tubing/Mouth /2015 s nebulizatio Karsten, piece n every 4- MD 6 hours as needed Ipratropium 01/24 Active Solution 0.5-2.5(3 270ml 1 unit J43.9 Evelina [place]/Albutero /2015 )mg/3ML every 6 Karsten, l Sulfate hours as MD needed Isosorbide 10/17 Active Tablets ER 30mg 90tab 1 by mouth I25.9 Chuy Mononitrate ER 24HR s every day Jorge Hernandez., [facility] Fluticasone 05/30 Active Suspension 50mcg/Act 16uni inhale 2 Evelina Propionate ts into each Karsten, nostril MD daily (pt not using) Lactulose 02/18 Active Solution 10GM/15ML 15 ml Mon,Weds, Fri in the a.m. by mouth Spironolactone Active Tablets 50mg 90tab 1 po qd Am Manjeet, / s MD Ailin Ecotrin Low Active Tablets DR 81mg 1 tablet Unknown Strength /0000 daily Multivitamins Active Capsules 30cap 1 capsule Unknown / s randa;y Tums Active Chewtabs 500mg Every 12 Unknown /0000 hours as needed Pantoprazole Active Tablets DR 40mg 1 by mouth Unknown Sodium /0000 twice a day Symbicort Active Aerosol 160-4.5mc 2 puff J43.9 Unknown /0000 g/Act twice a day Spiriva Respimat Active Aerosol 2.5mcg/Ac 2 puffs Unknown /0000 t every day Magnesium Oxide Active Tablets 400mg 1 by mouth Unknown / every day Ventolin HFA Active Aerosol 108(90Bas 2 puffs by Unknown /0000 e) mouth four mcg/Act times a day as needed Levoxyl Active Tablets 50mcg 1 daily Unknown / Levocetirizine Active Tablets 5mg 1 by mouth Unknown Dihydrochloride /0000 every day as needed Magic Mouthwash 09/21 Hx Equal use daily Husam S. Parts Of for mouth Omar, - sores DO [facility] 09/21 Furosemide 09/21 Hx Tablets 80mg 30tab 1 by mouth Husam S. s everyday Nelson, - (take with DO [facility] 09/24 20mg Tab for Total of 100mg/day) Furosemide 09/21 Hx Tablets 20mg 30tab 1 by mouth Husam S. s every day Omar, - (take with DO [facility] 09/24 80mg tab /2016 for total of 100mg/day) Percocet 10/09 Hx Tablets 5-325mg 60tab 1-2 tabs by M19.212 s mouth every Yaseen, - 4-6 hours 01/06 as needed pain Prednisone 06/11 Hx Tablets 1 by mouth every day - (as 09/11 directed, done on 05/16/16) Oxygen 01/24 Hx Misc 1unit please use R09.02 s o2 at Karsten, - 2l/min at MD 06/12 night /2015 Symbicort 12/30 Hx Aerosol 80-4.5mcg 30.6u 2 puff J43.9 Evelina /2015 /Act nits twice a day Karsten, - 05/19 Furosemide 02/18 Hx Tablets 20mg 90tab Take 3 Husam S. s tablets by Omar, - mouth every DO [facility] 09/21 day until weight reaches 240 pounds on home scale then decrease to 1 daily Fluticasone 02/05 Hx Suspension 50mcg/Act 16uni 2 sprays Evelina Propionate /2014 ts each Karsten, - nostril 05/30 twice daily Fluticasone 01/10 Hx Suspension 50mcg/Act 16gm 2 sprays Evelina Propionate each Karsten, - nostril 02/05 everyday Advair HFA 11/29 Hx Aerosol 115-21mcg 24uni 2 puff Evelina /Act ts twice a day Karsten, - -- PT Is 02/02 Not Using 10/26/15 Fluticasone 11/20 Hx Suspension 50mcg/Act 16gm 2 sprays 477.9 Evelina Propionate each Karsten, - nostril 2 01/10 times a day Cipro 11/20 Hx Tablets 500mg 7tabs 1 tab by 786.09 Evelina mouth every Karsten, - day 04/04 Zithromax Z-Hayden 11/07 Hx Tablets 250mg 6tabs Take as Evelina Evette Heck MD 11/07 Zithromax Z-Hayden 11/07 Hx Tablets 250mg 6tabs Take as Evelina Evette Heck MD 11/07 Zithromax Z-Hayden 11/07 Hx Tablets 250mg 6tabs Take as Evelina Evette Heck MD 11/19 Losartan 08/15 Hx Tablets 50mg 90tab 1 by mouth Husam SBerto Potassium s every day Omar - DO [facility] 09/17 Losartan 07/24 Hx Tablets 25mg 30tab 1 by mouth Chuy Potassium s every day Evette Hernandez M.D., 08/15 [facility] Lisinopril 01/30 Hx Tablets 2.5mg 90tab 1 by mouth Chuy /2013 s every day Evette Hernandez M.D., 07/24 [facility] Combivent 12/28 Hx Aerosol 2unit 2 Puffs PO Qutaybeh s bid S. - [facility] 11/28 , M.D. /2013 Singulair 12/28 Hx Tablets 10mg 30tab 1 PO qd Qutaybeh s S. - [facility] 11/28 , M.D. /2013 Aspirin 10/08 Hx Tablets 325mg 1 PO qd Qutaybeh S. - [facility] 11/28 , M.D. /2013 Plavix 10/08 Hx Tablets 75mg 90tab 1 PO qd Qutaybeh s S. - [facility] 11/28 , M.D. /2013 Coumadin 08/25 Hx Tablets 5mg 100ta as Directed Qutaybeh /2006 bs S. - [facility] 10/08 , M.DBerto /2007 Furosemide 05/27 Hx Tablets 20mg 90tab 1 PO qd Qutaybeh /2006 s S. - [place] 12/28 , M.D. /2007 Imodium Advanced 03/22 Hx Tablets prn Qutaybeh /2006 S. - [facility] 11/28 , M.D. /2013 Phenazopyridine 03/22 Hx Tablets 100mg as needed Qutaybeh HCL for bladder S. - [facility] 08/25 , M.D. /2006 Aspirin 12/07 Hx Chewtabs 81mg 1 PO qd [facility] /2006 Cipro 10/06 Hx Tablets 500mg 1 PO bid [facility] , M.[facility] /2006 Flomax 10/06 Hx Capsules 0.4mg 60cap one qd Qutayb s S. - [place] 11/28 , M.D. Toprol XL 10/06 Hx Tablets 25mg 90tab 1 po qd [facility] Ferrous Sulfate 09/03 Hx Tablets 325mg 1 po bid [facility] , M.[facility] /2006 Vitamins 09/03 Hx Caplets 30cap 1 PO qd [facility]beh [facility] , M.D. Toprol XL 09/03 Hx Tablets 25mg 1 po bid [facility]b [facility] , M.D. /2006 Warfarin 08/25 Hx Tablets 1mg 90tab as Directed tayb s S. - [facility] 04/19 , M.D. /2006 Aspirin Enteric 08/25 Hx Tablets 325mg 1 po qd [facility] , M.D. /2006 Hydrocodone 08/25 Hx Capsules 5mg;500 prn pain Qutaybeh & /2005 mg S. Acetaminophen - [facility] 09[facility] , M.D. /2005 Ferrous 08/25 Hx Tablets 325mg 1 po qd Qutaybeh Gluconate [facility] - [facility] 09/[facility] , M.D. /2005 Xopenex HFA 08/25 Hx Solution prn [facility] , M.D. /2006 Lasix 08/25 Hx Tablets 20mg 1 po qd x 5 [facility] days [facility] start , M.DBerto 08/24 Spiriva 08/25 Hx Capsules 18mcg qd Qutaybeh Handale S. - [facility] 10/06 , M.D. Advair Diskus 08/25 Hx Inhaler 250mcg;50 1 puff bid Qutayb mcg S. - [facility] 10/06 , M.D. Toprol XL 07/30 Hx Tablets 25mg 60tab 1 po bid Qutayb s S. - [facility] 09/03 , M.D. /2005 Norvasc 07/22 Hx Tablets 5mg 30tab 1 po qd Qutayb s S. - [facility] 07/30 , M.D. Mucomyst 07/22 Hx 600mg 6unit 1 po bid Qutayb s thu, thursday [facility] 08/25 , M.D. /2005 Toprol XL 07/21 Hx Tablets 25mg 30tab 1 po qd yb s S. - [facility] 07/30 , M.D. Aciphex 07/20 Hx Tablets 20mg 30tab 1 PO qd Quyb s S. - [facility] 11/28 , M.D. /2013 Diovan HCT 07/20 Hx Tablets 80mg;12.5 90tab 1 po qd mg s FBerto Alas Mauser, 11/28 M.D. /2013 Flomax 07/20 Hx Capsules 0.4mg 60cap 1 qd yb s S. - [facility] 09/03 , M.D. Tylenol PM 07/20 Hx q qhs Qutayb S. - [facility] 11/28 , M.D. /2013 Aleve 07/20 Hx Caplets 220mg 2 po qd yb S. - [facility] 09/03 , M.D. Nadolol 00 Hx Tablets 20mg 90tab 1/2 tab po Manjeet, /0000 s qd MD Ailin - 01/26 [address] 40mg 90tab 1 po bid Manjeet, Sodium / s MD Ailin - 02/02 [place] Colon Hx Capsules 30cap 1 po qd PM Unknown Health /0000 s - 10/16 Furosemide Hx Tablets 20mg 30tab 1/2 tab po Manjeet, / s marisa Parisi MD - 02/18 Xifaxan Hx Tablets 550mg 42tab 1/2 tab po West, / s brad Stuart MD - 10/16 Lactulose Hx Solution 10GM/15ML 900ml 1tbs twice , daily Am/PM MD Narciso - prevent 02/18 encephalopa thy Ranitidine HCL 00 Hx Capsules 150mg 1 by mouth Unknown /0000 twice a day - 04/04 Fluticasone Hx Suspension 50mcg/Act 2 sprays Unknown Propionate / each - nostril 11/20 daily needed Fluocinonide Hx Cream 0.05% twice a day Unknown /0000 as needed - rash 10/16 Lotrimin AF 00 Hx Aerosol 2% as needed Unknown /0000 - 10/16 Ranitidine HCL 00 Hx Capsules 150mg 1 by mouth Unknown /0000 twice a day - 03/30 Levofloxacin Hx Tablets 750mg take 1 Unknown /0000 tablet by - mouth once 09/08 daily for four days ending 09/18/17 Prednisone 0000 Hx Tablets 10mg Take 4 Tabs Unknown /0000 Once For 1 - Day. Then 3 09/08 Tabs For Day. Then 2 Tabs Fo...Ending 09/18/17 Medications Administered in Office Medication Date Status Form Strength Qnty SIG Indications Ordering Provider Inj, Administered Injection Guicho Soler Regadenoson, 014 Toñito, 0.1 MG Jordyn, [facility], FASNC Technetium TC Administered Injection Guicho Soler 99M 014 Soraya Sibley M.D., [facility], Per Unit Dose KASSIE Up To 40 Millicuries Immunizations CPT Code Status Date Vaccine Lot # [id number] Given 12/31/2015 Fluvirin Im 3Yrs And Older Vital Signs Date Vital Result Comment 09/30/2017 Height 72 inches 6'0" Weight 238.75 lb Heart Rate 64 /min BP Systolic Sitting 94 mmHg Rue reg cuff BP Diastolic Sitting 52 mmHg Rue reg cuff Respiratory Rate 20 /min BMI (Body Mass Index) 32.4 kg/m2 Ejection Fraction 55-60% 10/24/15 09/17/2017 Height 72 inches 6'0" Weight 247.50 lb With shoes Heart Rate 76 /min BP Systolic Sitting 98 mmHg Rue reg cuff BP Diastolic Sitting 42 mmHg Rue reg cuff Respiratory Rate 20 /min BMI (Body Mass Index) 33.6 kg/m2 05/19/2017 Height 72 inches 6'0" Weight 266.00 lb BP Systolic 105 mmHg BP Diastolic 60 mmHg Body Temperature 97.7 F Pain Level 0 BMI (Body Mass Index) 36.1 kg/m2 05/04/2017 Height 72 inches 6'0" Weight 266.00 lb with shoes Heart Rate 56 /min BP Systolic Sitting 130 mmHg LA reg cuff BP Diastolic Sitting 60 mmHg LA reg cuff BP Systolic Standing 132 mmHg LA reg cuff BP Diastolic Standing 60 mmHg LA reg cuff BMI (Body Mass Index) 36.1 kg/m2 Ejection Fraction 55% - 60% echo 10/24/15 03/13/2017 Height 72 inches 6'0" Weight 265.00 lb w/ shoes Heart Rate 58 /min reg BP Systolic Sitting 120 mmHg Rue, reg cuff BP Diastolic Sitting 54 mmHg Rue, reg cuff Respiratory Rate 16 /min O2 % BldC Oximetry 97 % on Ra BMI (Body Mass Index) 35.9 kg/m2 03/10/2017 Height 72 inches 6'0" Weight 260.00 lb Heart Rate 44 /min BP Systolic 111 mmHg BP Diastolic 57 mmHg Body Temperature 96.3 F Pain Level 4 BMI (Body Mass Index) 35.3 kg/m2 01/08/2017 Height 72 inches 6'0" Weight 260.00 lb Heart Rate 76 /min BP Systolic Sitting 122 mmHg BP Diastolic Sitting 78 mmHg Respiratory Rate 20 /min Pain Level 0 BMI (Body Mass Index) 35.3 kg/m2 11/27/2016 Height 72 inches 6'0" Weight 260.00 lb Heart Rate 68 /min Respiratory Rate 22 /min Pain Level 0 BMI (Body Mass Index) 35.3 kg/m2 11/07/2016 Height 72 inches 6'0" Weight 260.00 lb Heart Rate 64 /min Respiratory Rate 20 /min Body Temperature 96.4 F Pain Level 2 BMI (Body Mass Index) 35.3 kg/m2 10/09/2016 Height 72 inches 6'0" Weight 260.00 lb Heart Rate 72 /min BP Systolic Sitting 132 mmHg BP Diastolic Sitting 70 mmHg Respiratory Rate 20 /min Pain Level 8 BMI (Body Mass Index) 35.3 kg/m2 09/15/2016 Height 72 inches 6'0" Weight 260.00 lb w/ shoes Heart Rate 56 /min reg BP Systolic Sitting 116 mmHg Rue, reg cuff BP Diastolic Sitting 56 mmHg Rue, reg cuff BP Systolic Standing 120 mmHg Rue, reg cuff BP Diastolic Standing 60 mmHg Rue, reg cuff Respiratory Rate 14 /min BMI (Body Mass Index) 35.3 kg/m2 Ejection Fraction 55-60% as of 10/24/15 echo 09/12/2016 Height 72 inches 6'0" Weight 257.00 lb Heart Rate 84 /min BP Systolic 130 mmHg BP Diastolic 58 mmHg Respiratory Rate 20 /min O2 % BldC Oximetry 97 % BMI (Body Mass Index) 34.9 kg/m2 08/14/2016 Height 72 inches 6'0" Weight 257.00 lb Heart Rate 64 /min Respiratory Rate 16 /min Pain Level 5 BMI (Body Mass Index) 34.9 kg/m2 07/29/2016 Height 72 inches 6'0" Weight 257.00 lb Pain Level 7 BMI (Body Mass Index) 34.9 kg/m2 06/16/2016 Height 72 inches 6'0" Weight 257.00 lb Pain Level 5 BMI (Body Mass Index) 34.9 kg/m2 06/12/2016 Height 72 inches 6'0" Heart Rate 95 /min BP Systolic Sitting 128 mmHg BP Diastolic Sitting 72 mmHg Respiratory Rate 22 /min O2 % BldC Oximetry 95 % 03/31/2016 Height 72 inches 6'0" Weight 257.00 lb Heart Rate 54 /min 58 BP Systolic Sitting 116 mmHg right arm, reg cuff BP Diastolic Sitting 62 mmHg right arm, reg cuff BP Systolic Standing 114 mmHg right arm, reg cuff BP Diastolic Standing 58 mmHg right arm, reg cuff Respiratory Rate 20 /min BMI (Body Mass Index) 34.9 kg/m2 Ejection Fraction 55-60% 10/24/15 02/04/2016 Height 72 inches 6'0" Weight 269.00 lb Heart Rate 50 /min 52 BP Systolic Sitting 118 mmHg right arm, reg cuff BP Diastolic Sitting 68 mmHg right arm, reg cuff BP Systolic Standing 120 mmHg right arm, reg cuff BP Diastolic Standing 66 mmHg right arm, reg cuff Respiratory Rate 24 /min BMI (Body Mass Index) 36.5 kg/m2 Ejection Fraction 55-60% 10/24/15 01/25/2016 Height 72 inches 6'0" Weight 260.00 lb Heart Rate 57 /min BP Systolic Sitting 136 mmHg BP Diastolic Sitting 68 mmHg Respiratory Rate 22 /min O2 % BldC Oximetry 96 % BMI (Body Mass Index) 35.3 kg/m2 12/31/2015 Height 72 inches 6'0" Weight 260.00 lb w/shoes Heart Rate 50 /min BP Systolic Sitting 134 mmHg BP Diastolic Sitting 66 mmHg Respiratory Rate 22 /min O2 % BldC Oximetry 94 % BMI (Body Mass Index) 35.3 kg/m2 10/26/2015 Height 72 inches 6'0" Weight 274.00 lb w/ shoes Heart Rate 62 /min irreg BP Systolic Sitting 138 mmHg Rue, reg cuff BP Diastolic Sitting 80 mmHg Rue, reg cuff BP Systolic Standing 142 mmHg Rue BP Diastolic Standing 80 mmHg Rue Respiratory Rate 18 /min BMI (Body Mass Index) 37.2 kg/m2 Ejection Fraction 55-60% as of 10/24/15 10/17/2015 Height 72 inches 6'0" Weight 276.00 lb Heart Rate 66 /min 68 BP Systolic Sitting 138 mmHg right arm, reg cuff BP Diastolic Sitting 66 mmHg right arm, reg cuff BP Systolic Standing 134 mmHg right arm, reg cuff BP Diastolic Standing 66 mmHg right arm, reg cuff Respiratory Rate 20 /min BMI (Body Mass Index) 37.4 kg/m2 Ejection Fraction 55-60% 10/12/12 04/05/2015 Height 72 inches 6'0" Weight 270.00 lb Heart Rate 56 /min 60 BP Systolic Sitting 124 mmHg left arm, reg cuff BP Diastolic Sitting 58 mmHg left arm, reg cuff BP Systolic Standing 122 mmHg left arm, reg cuff BP Diastolic Standing 60 mmHg left arm, reg cuff Respiratory Rate 20 /min BMI (Body Mass Index) 36.6 kg/m2 Ejection Fraction 55-60% 10/12/12 02/19/2015 Height 72 inches 6'0" Weight 269.00 lb Heart Rate 57 /min BP Systolic Sitting 146 mmHg BP Diastolic Sitting 84 mmHg Respiratory Rate 22 /min O2 % BldC Oximetry 97 % BMI (Body Mass Index) 36.5 kg/m2 11/20/2014 Heart Rate 59 /min BP Systolic Sitting 162 mmHg BP Diastolic Sitting 88 mmHg Respiratory Rate 24 /min O2 % BldC Oximetry 97 % 11/01/2014 Height 73 inches 6'1" Weight 271.25 lb Heart Rate 58 /min BP Systolic Sitting 138 mmHg LA lg cuff BP Diastolic Sitting 64 mmHg LA lg cuff Body Temperature 98.1 F O2 % BldC Oximetry 96 % BMI (Body Mass Index) 35.8 kg/m2 Neck Circumference in inches 17.5 04/25/2014 Height 73 inches 6'1" Weight 259.00 lb Heart Rate 66 /min 76 BP Systolic Sitting 120 mmHg left arm, large cuff BP Diastolic Sitting 62 mmHg left arm, large cuff BP Systolic Standing 118 mmHg left arm, large cuff BP Diastolic Standing 58 mmHg left arm, large cuff Respiratory Rate 20 /min BMI (Body Mass Index) 34.2 kg/m2 02/09/2014 Height 73 inches 6'1" Weight 262.00 lb Heart Rate 58 /min 60 BP Systolic Sitting 134 mmHg left arm, large cuff BP Diastolic Sitting 64 mmHg left arm, large cuff BP Systolic Standing 130 mmHg left arm, large cuff BP Diastolic Standing 64 mmHg left arm, large cuff Respiratory Rate 20 /min BMI (Body Mass Index) 34.6 kg/m2 01/30/2014 Height 73 inches 6'1" Weight 262.25 lb Heart Rate 64 /min 78 sit and stand HR reg BP Systolic Sitting 140 mmHg LA reg cuff BP Diastolic Sitting 70 mmHg LA reg cuff BP Systolic Standing 138 mmHg LA reg cuff BP Diastolic Standing 70 mmHg LA reg cuff Respiratory Rate 16 /min BMI (Body Mass Index) 34.6 kg/m2 01/12/2014 Height 73 inches 6'1" Weight 261.31 lb with shoes Heart Rate 54 /min 60 sit and stand HR irreg BP Systolic Sitting 130 mmHg LA reg cuff BP Diastolic Sitting 60 mmHg LA reg cuff BP Systolic Standing 140 mmHg LA reg cuff BP Diastolic Standing 68 mmHg LA reg cuff Respiratory Rate 17 /min BMI (Body Mass Index) 34.5 kg/m2 11/29/2013 Height 74.5 inches 6'2.50" Weight 252.00 lb without shoes Heart Rate 5246 /min sit and stand HR reg BP Systolic Sitting 130 mmHg LA reg cuff BP Diastolic Sitting 60 mmHg LA reg cuff BP Systolic Standing 126 mmHg LA reg cuff BP Diastolic Standing 66 mmHg LA reg cuff Respiratory Rate 16 /min BMI (Body Mass Index) 31.9 kg/m2 12/29/2007 Height 74 inches 6'2" Weight 268.00 lb Heart Rate 63 /min BP Systolic Sitting 120 mmHg BP Diastolic Sitting 64 mmHg BMI (Body Mass Index) 34.4 kg/m2 08/25/2007 Height 74 inches 6'2" Weight 254.00 lb Heart Rate 65 /min BP Systolic Sitting 110 mmHg BP Diastolic Sitting 60 mmHg Respiratory Rate 18 /min O2 % BldC Oximetry 94 % BMI (Body Mass Index) 32.6 kg/m2 05/27/2007 Height 74 inches 6'2" Weight 253.75 lb Heart Rate 59 /min BP Systolic Sitting 110 mmHg BP Diastolic Sitting 74 mmHg BMI (Body Mass Index) 32.6 kg/m2 03/22/2007 Height 74 inches 6'2" Weight 250.00 lb Heart Rate 61 /min BP Systolic Sitting 124 mmHg BP Diastolic Sitting 70 mmHg BMI (Body Mass Index) 32.1 kg/m2 12/07/2006 Height 74 inches 6'2" Weight 247.00 lb Heart Rate 57 /min BP Systolic Sitting 120 mmHg BP Diastolic Sitting 70 mmHg O2 % BldC Oximetry 96 % BMI (Body Mass Index) 31.7 kg/m2 10/06/2006 Height 74 inches 6'2" Weight 241.00 lb Heart Rate 72 /min BP Systolic Sitting 120 mmHg L BP Diastolic Sitting 68 mmHg L BMI (Body Mass Index) 30.9 kg/m2 09/03/2006 Height 74 inches 6'2" Weight 238.00 lb Heart Rate 56 /min BP Systolic Sitting 124 mmHg BP Diastolic Sitting 76 mmHg Body Temperature 97.0 F O2 % BldC Oximetry 89 % up to 94% after sitting for 2 min BMI (Body Mass Index) 30.6 kg/m2 07/30/2006 Height 74 inches 6'2" Weight 250.00 lb Heart Rate 60 /min BP Systolic Sitting 124 mmHg L BP Diastolic Sitting 64 mmHg L BMI (Body Mass Index) 32.1 kg/m2 07/20/2006 Height 74 inches 6'2" Weight 245.00 lb Heart Rate 67 /min BP Systolic Sitting 130 mmHg left arm, right arm 134/70 BP Diastolic Sitting 74 mmHg left arm, right arm 134/70 BP Systolic Standing 130 mmHg BP Diastolic Standing 70 mmHg O2 % BldC Oximetry 98 % BMI (Body Mass Index) 31.5 kg/m2 Results Test Date Test Result H/L Range Note Basic Metabolic Panel 09/24/2017 Sodium 133 mmol/L 133-145 Potassium 4.1 mmol/L 3.5-5.0 Chloride 98 mmol/L Low 101-111 Co2 Carbon Dioxide 28 mmol/L 22-32 Anion Gap 7 mmol/L 2-11 Glucose 135 mg/dL High 70-100 Blood Urea Nitrogen 30 mg/dL High 6-24 Creatinine 1.46 mg/dL High 0.67-1.17 BUN/Creatinine Ratio 20.5 High 8-20 Calcium 8.5 mg/dL Low 8.6-10.3 Egfr Non- 46.9 >60 Egfr 60.4 >60 1 Inr/Protime 10/09/2016 Inr 1.17 High 0.89-1.11 Laboratory test finding 10/09/2016 Partial Thrombo Time 32.8 seconds 26.0 -36.3 PTT CBC No Diff 10/09/2016 White Blood Count 5.1 10^3/uL 3.5-10.8 Red Blood Count 4.79 10^6/uL 4.0-5.4 Hemoglobin 15.4 g/dL 14.0-18.0 Hematocrit 45 % 42-52 Mean Corpuscular Volume 94 fL 80-94 Mean Corpuscular Hemoglobin 32 pg High 27-31 Mean Corpuscular HGB Conc 34 g/dL 31-36 Red Cell Distribution Width 14 % 10.5-15 Platelet Count 151 10^3/uL 150-450 Mean Platelet Volume 9 um3 7.4-10.4 Type & Screen 10/09/2016 Patient Blood Type A Positive Antibody Screen NEGATIVE Urinalysis Profile 10/09/2016 Urine Color Yellow Urine Appearance Clear Urine Specific Mathews 1.014 1.010-1.030 Urine pH 5.0 5-9 Urine Urobilinogen Negative Negative Urine Ketones Negative Negative Urine Protein Negative Negative Urine Leukocytes Negative Negative Urine Blood Negative Negative Urine Nitrite Negative Negative Urine Bilirubin Negative Negative Urine Glucose Negative Negative Basic Metabolic Panel 10/09/2016 Sodium 138 mmol/L 133-145 Potassium 4.1 mmol/L 3.5-5.0 Chloride 110 mmol/L 101-111 Co2 Carbon Dioxide 26 mmol/L 22-32 Anion Gap 2 mmol/L 2-11 Glucose 102 mg/dL High 70-100 Blood Urea Nitrogen 15 mg/dL 6-24 Creatinine 1.23 mg/dL High 0.67-1.17 BUN/Creatinine Ratio 12.2 8-20 Calcium 9.5 mg/dL 8.6-10.3 Egfr Non- 57.4 >60 Egfr 73.8 >60 2 Basic Metabolic Panel 07/05/2015 Sodium 136 mmol/L 133-145 Potassium 4.1 mmol/L 3.5-5.0 Chloride 104 mmol/L 101-111 Co2 Carbon Dioxide 26 mmol/L 22-32 Anion Gap 6 mmol/L 2-11 Glucose 82 mg/dL 70-100 Blood Urea Nitrogen 15 mg/dL 6-24 Creatinine 1.20 mg/dL High 0.67-1.17 BUN/Creatinine Ratio 12.5 8-20 Calcium 9.3 mg/dL 8.6-10.3 Egfr Non- 59.2 >60 Egfr 76.1 >60 3 Laboratory test finding 04/11/2015 Alt (SGPT) 24 U/L 7-52 Ast (Sgot) 30 U/L 13-39 Lipid Profile (Trig/Chol/HDL) 04/11/2015 Triglycerides 55 mg/dL 4 Cholesterol 146 mg/dL 5 HDL Cholesterol 37.2 mg/dL 6 LDL Cholesterol 98 mg/dL 7 Order 11/20/2014 6 Minute Walk <pending> PFTW/Spirometry Vol Pre/Post Bronchdilat Dlco Complete <pending> Surgical Pathology 11/14/2014 S RUN DATE: <SEE NOTE> Acid Fast Smear 11/14/2014 Acid Fast Stain - (SEE NOTE) 9, 10 Direct Direct Body Fluid C&S 11/14/2014 Body Fluid Cult Gram (SEE NOTE) 9, 11 Stain Laboratory test 11/14/2014 Fungal Cult - Other (SEE NOTE) 9, 12 finding Sources Fungal Cult Other 11/14/2014 Fungal Cult - Other (SEE NOTE) 13, 14 Sources Sources Fungal Cult Other 11/14/2014 Fungal Cult - Other (SEE NOTE) 13, 15 Sources Sources Laboratory test 11/14/2014 Mycobacterial Culture See Comment 16 finding 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 finding Thrombo Time 1 Comp Metabolic 11/01/2014 Sodium 139 mmol/L 133-145 Panel Potassium 4.2 mmol/L 3.5-5.0 Chloride 110 mmol/L 101-111 Co2 Carbon Dioxide 22 mmol/L 22-32 Anion Gap 7 mmol/L 2-11 Glucose 52 mg/dL Low 70-100 Blood Urea Nitrogen 18 mg/dL 6-24 Creatinine 1.10 mg/dL 0.67-1.17 BUN/Creatinine Ratio 16.4 8-20 Calcium 9.3 mg/dL 8.6-10.3 Total Protein 6.9 g/dL 6.4-8.9 Albumin 3.9 g/dL 3.2-5.2 Globulin 3.0 g/dL 2-4 Albumin/Globulin Ratio 1.3 1-3 Total Bilirubin 2.10 mg/dL High 0.2-1.0 Alkaline Phosphatase 65 U/L 34-104 Alt 30 U/L 7-52 Ast 34 U/L 13-39 Egfr Non- 65.6 >60 Egfr 84.4 >60 18 Inr/Protime 11/01/2014 Inr 1.20 High 0.78-1.07 19 CBC Auto Diff 11/01/2014 White Blood Count 6.4 10^3/uL 4.8-10.8 Red Blood Count 5.14 10^6/uL 4.0-5.4 Hemoglobin 16.1 g/dL 14.0-18.0 Hematocrit 48 % 42-52 Mean Corpuscular Volume 93 fL 80-94 Mean Corpuscular Hemoglobin 31 pg 27-31 Mean Corpuscular HGB Conc 34 g/dL 31-36 Red Cell Distribution Width 15 % 10.5-15 Platelet Count 142 10^3/uL Low 150-450 Mean Platelet Volume 9 um3 7.4-10.4 Abs Neutrophils 4.6 10^3/uL 1.5-7.7 Abs Lymphocytes 0.8 10^3/uL Low 1.0-4.8 Abs Monocytes 0.8 10^3/uL 0-0.8 Abs Eosinophils 0.1 10^3/uL 0-0.6 Abs Basophils 0.1 10^3/uL 0-0.2 Abs Nucleated RBC 0.01 10^3/uL Granulocyte % 71.5 % 38-83 Lymphocyte % 13.1 % Low 25-47 Monocyte % 12.7 % High 1-9 Eosinophil % 1.8 % 0-6 Basophil % 0.9 % 0-2 Nucleated Red Blood Cells % 0.1 Laboratory test finding 03/09/2014 Inr 1.25 High 0.85-1.06 BMP Basic Metabolic Panel 02/06/2014 Sodium 138 mmol/L 133-145 Potassium 4.4 mmol/L 3.7-5.6 Chloride 108 mmol/L 101-111 Co2 Carbon Dioxide 24 mmol/L 22-32 Anion Gap 6 mmol/L 2-11 Glucose 120 mg/dL High 70-100 Blood Urea Nitrogen 12 mg/dL 6-24 Creatinine 1.04 mg/dL 0.67-1.17 BUN/Creatinine Ratio 11.5 8-20 Calcium 8.3 mg/dL Low 8.6-10.3 Egfr Non- 70.2 >60 Egfr 90.3 >60 20 Comp Metabolic Panel 12/27/2013 Sodium 140 mmol/L 133-145 21 Potassium 4.4 mmol/L 3.7-5.6 21 Chloride 109 mmol/L 101-111 21 Co2 Carbon Dioxide 27 mmol/L 22-32 21 Anion Gap 4 mmol/L 2-11 21 Glucose 79 mg/dL 70-100 21 Blood Urea Nitrogen 14 mg/dL 6-24 21 Creatinine 1.07 mg/dL 0.67-1.17 21 BUN/Creatinine Ratio 13.1 8-20 21 Calcium 8.9 mg/dL 8.6-10.3 21 Total Protein 6.2 g/dL Low 6.4-8.9 21 Albumin 3.5 g/dL 3.2-5.2 21 Globulin 2.7 g/dL 2-4 21 Albumin/Globulin Ratio 1.3 1-3 21 Total Bilirubin 1.70 mg/dL High 0.2-1.0 21 Alkaline Phosphatase 75 U/L 34-104 21 Alt 22 U/L 7-52 21 Ast 30 U/L 13-39 21 Egfr Non- 67.9 >60 21 Egfr 87.4 >60 21, 22 Laboratory test finding 12/27/2013 Troponin I 0.00 ng/mL <0.03 21, 23 TSH (Thyroid Stimulating Horm) 2.98 IU/mL 0.34-5.60 21, 24 CBC With Manual Diff 12/27/2013 White Blood Count 5.4 10^3/uL 4.8-10.8 21 Red Blood Count 4.89 10^6/uL 4.0-5.4 21 Hemoglobin 15.1 g/dL 14.0-18.0 21 Hematocrit 44 % 42-52 21 Mean Corpuscular Volume 90 fL 80-94 21 Mean Corpuscular Hemoglobin 31 pg 27-31 21 Mean Corpuscular HGB Conc 35 g/dL 31-36 21 Red Cell Distribution Width 15 % 10.5-15 21 Platelet Count 130 10^3/uL Low 150-450 21 Mean Platelet Volume 9 um3 7.4-10.4 21 Abs Neutrophils 3.7 10^3/uL 1.5-7.7 21 Abs Lymphocytes 0.9 10^3/uL Low 1.0-4.8 21 Abs Monocytes 0.6 10^3/uL 0-0.8 21 Abs Eosinophils 0.2 10^3/uL 0-0.6 21 Abs Basophils 0 10^3/uL 0-0.2 21 Abs Nucleated RBC 0.01 10^3/uL 21 Neutrophil % 72 % 38-83 21 Lymphocytes % 14 % Low 25-47 21 Monocytes % 9 % 0-13 21 Eosinophils % 5 % 0-6 21 RBC Morphology Normal Normal 21 Laboratory test finding 12/27/2013 Magnesium 1.9 mg/dL 1.9-2.7 21, 25 Lipid Profile (Trig/Chol/HDL) 12/15/2013 Triglycerides 81 mg/dL 26 Cholesterol 125 mg/dL 27 HDL Cholesterol 29.2 mg/dL 28 LDL Cholesterol 80 mg/dL 29 Protime 01/26/2007 Inr 2.35 30 Protime 18.4 High 10.9-13.1 Protime 12/31/2006 Inr 2.13 31 Protime 17.5 High 10.9-13.1 Protime 12/07/2006 Inr 2.10 32 Protime 17.4 High 10.9-13.1 Liver Function Panel 12/03/2006 Albumin/Globulin Ratio 1.2 1-3 33 Albumin 3.7 GM/DL 3.2-5.2 33 Alkaline Phosphatase 74 U/L 39-117 33 Alt (SGPT) 78 U/L High 17-63 33 Ast (Sgot) 79 U/L High 12-42 33 Bilirubin Direct 0.2 mg/dL 0.1-0.5 33 Globulin 3.1 GM/DL 2-4 33 Indirect Bilirubin 0.8 mg/dL High 0.1-0.75 33 Bilirubin Total 1.0 mg/dL 0.4-1.5 33 Total Protein 6.8 GM/DL 6.2-8.1 33 Lipid Profile 12/03/2006 Cholesterol/HDL Ratio 7.00 AVERAGE High 1-4.97 33 (Trig/Chol/HDL) Cholesterol 168 mg/dL Less Than 200 33, 34 Triglyceride 149 mg/dL 40-200 33 High Density Lipoprotein 24 mg/dL Low 40-60 33, 35 Low Density Lipoprotein 114 mg/dL High Less Than 100 33, 36 Basic Metabolic Panel 12/03/2006 One Over Creatinine 0.76 33 Anion Gap 5.0 mmol/L 2-11 33, 37 BUN 16 mg/dL 6-24 33 Calcium 8.9 mg/dL 8.7-10.2 33 Chloride 106 mmol/L 101-111 33 Co2 (Carbon Dioxide) 28.0 mmol/L 22-32 33 Glucose 96 mg/dL 70-105 33 Potassium 4.0 mmol/L 3.5-5.0 33 Sodium 139 mmol/L 135-145 33 BUN/Creatinine Ratio 12.3 8-20 33 Creatinine 1.3 mg/dL 0.5-1.4 33 CBC With Manual Diff 12/03/2006 White Blood Count 4.8 CUMM 4.8-10.8 33 Absolute Neutrophil Count 3.5 33 Anisocytosis SLIGHT 33 Band Neutrophil 3 % 0-8 33 Basophil 1 % 0-2 33 Hematocrit 39 % Low 42-52 33 Hemoglobin 13.5 g/dL Low 14.0-18.0 33 Eosenophil 2 % 0-6 33 Lymphocyte 16 % 5-47 33 Mean Corpuscular HGB Cone 35 g/dL 32-36 33 Mean Corpuscular Hemoglob 29 pg 27-31 33 Mean Corpuscular Volume 82 um3 80-94 33 Monocyte 8 % 0-13 33 Mean Platelet Volume 9.1 um3 7.4-10.4 33 Platelet Count 198 CUMM 150-450 33 Polysegmented Neutrophil 70 % 38-83 33 Red Cell Count 4.76 CUMM 4.6-6.2 33 Redcell Distribution WDTH 15 % 10.5-15 33 1 Because ethnic data is not always readily available, this report includes an eGFR for both -Americans and non- Americans. The National Kidney Disease Education Program (NKDEP) does not endorse the use of the MDRD equation for patients that are not between the ages of 18 and 70, are , have extremes of body size, muscle mass, or nutritional status, or are non- or non-. According to the National Kidney Foundation, irrespective of diagnosis, the stage of the disease is based on the level of kidney function: Stage Description GFR(mL/min/1.73 m(2)) 1 Kidney damage with normal or decreased GFR 90 2 Kidney damage with mild decrease in GFR 60-89 3 Moderate decrease in GFR 30-59 4 Severe decrease in GFR 15-29 5 Kidney failure <15 (or dialysis) 2 Because ethnic data is not always readily available, this report includes an eGFR for both -Americans and non- Americans. The National Kidney Disease Education Program (NKDEP) does not endorse the use of the MDRD equation for patients that are not between the ages of 18 and 70, are , have extremes of body size, muscle mass, or nutritional status, or are non- or non-. According to the National Kidney Foundation, irrespective of diagnosis, the stage of the disease is based on the level of kidney function: Stage Description GFR(mL/min/1.73 m(2)) 1 Kidney damage with normal or decreased GFR 90 2 Kidney damage with mild decrease in GFR 60-89 3 Moderate decrease in GFR 30-59 4 Severe decrease in GFR 15-29 5 Kidney failure <15 (or dialysis) 3 Because ethnic data is not always readily available, this report includes an eGFR for both -Americans and non- Americans. The National Kidney Disease Education Program (NKDEP) does not endorse the use of the MDRD equation for patients that are not between the ages of 18 and 70, are , have extremes of body size, muscle mass, or nutritional status, or are non- or non-. According to the National Kidney Foundation, irrespective of diagnosis, the stage of the disease is based on the level of kidney function: Stage Description GFR(mL/min/1.73 m(2)) 1 Kidney damage with normal or decreased GFR 90 2 Kidney damage with mild decrease in GFR 60-89 3 Moderate decrease in GFR 30-59 4 Severe decrease in GFR 15-29 5 Kidney failure <15 (or dialysis) 4 Desirable <150 Borderline high 150-199 High 200-499 Very High >500 5 Desirable <200 Borderline high 200-239 High >239 6 Low <40 Desirable: 40-60 High: >60 7 Desirable: <100 mg/dL Near Optimal: 100-129 mg/dL Borderline High: 130-159 mg/dL High: 160-189 mg/dL Very High: >189 mg/dL 8 RUN DATE: 11/16/14 [facility] LAB LIVE PAGE 1 RUN TIME: [address] [place] [address] Specimen Inquiry Name: REGGIE MENDOSA : [address]: Evelina Shelley MD Acct: [id number] Unit: [id number] AGE: 74 Location: OR Re11/14/14 SEX: M Status: REG [facility] SPEC: [id number] MICKEY: 11/14/14- SUBM DR: Evelina Shelley MD REQ: [id number] RECD: 11/14/14 STATUS: SOUT _ ORDERED: LEVEL IV FINAL DIAGNOSIS Lung, left lower lobe, transbronchial biopsies: -- Benign respiratory epithelial and mucosal fragments only. -- No evidence of malignancy identified. PRE-OPERATIVE DIAGNOSIS Lung mass left lower lobe GROSS DESCRIPTION The specimen is received in formalin labeled, Biopsy Left Lower Lobe, and consists of a 0.4 x 0.2 x 0.1 cm aggregate of trevizo irregular soft tissue fragments. The specimen is scant. The specimen is filtered and submitted entirely in one cassette. Signed (signature on file) Niko Bryan MD 0936 END OF REPORT * ML=Testing performed at Main Lab DEPARTMENT OF PATHOLOGY, [address] [place] [address] Niko Bryan M.D. Director [facility] # [id number] 9 LEFT LOWER LOBE FLUID LEFT LOWER LOBE FLUID~Verbal to DR. AILIN BURROUGHS by [id number] at 1554 on 11/16/14.~Results read sravanthi LEFT LOWER LOBE FLUID~Verbal to DR. AILIN BURROUGHS by [id number] at 1554 on 11/16/14.~Results read sravanthi LEFT LOWER LOBE FLUID~Verbal to DR. AILIN BURROUGHS by [id number] at 1554 on 11/16/14.~Results read sravanthi LEFT LOWER LOBE FLUID~Verbal to DR. AILIN BURROUGHS by [id number] at 1554 on 11/16/14.~Results read sravanthi LEFT LOWER LOBE FLUID LEFT LOWER LOBE FLUID LEFT LOWER LOBE FLUID 10 RUN DATE: 11/15/14 [facility] LAB LIVE PAGE 1 RUN TIME: [address] [facility] [place], [place] [address] Specimen Inquiry Name: REGGIE MENDOSA : [address]: Evelina Shelley MD Acct: [id number] Unit: [id number] AGE: 74 Location: OR Re11/14/14 SEX: M Status: REG SDC SPEC: [id number] MICKEY: 11/14/14-150[facility] DR: Evelina Shelley MD REQ: [id number] RECD: 11/14/14 STATUS: PARAG LEAVITT DR: Ailin Burroughs MD _ SOURCE: NO SOURCE SPDESC: ORDERED: Acid Fast Stain COMMENTS: LEFT LOWER LOBE FLUID Procedure Result Verified Site Acid Fast Stain - Direct Final 11/15/14- 1040 ML AFB Smear Result No Acid Fast Bacillus Present (Negative) Preparation By Cytospin Smear Due to limited sensitivity of the smear, results should be used as an adjunct in evaluating the patient's status and cultural examination is highly recommended for diagnosis. END OF REPORT * ML=Testing performed at Main Lab DEPARTMENT OF PATHOLOGY, [facility] [place], [place] [address] Niko Bryan M.D. Director CLIA # [id number] RUN DATE: 11/17/14 [facility] LAB LIVE PAGE 1 RUN TIME: [address] [facility] [place], [place] [address] Specimen Inquiry Name: REGGIE MENDOSA : [address]: Evelina Shelley MD Acct: [id number] Unit: [id number] AGE: 74 Location: OR Re11/14/14 SEX: M Status: REG [facility] SPEC: [id number] MICKEY: 11/14/14-[address]: Evelina Shelley MD REQ: [id number] RECD: 11/14/14 STATUS: COMP HR DR: Ailin Burroughs MD _ SOURCE: MISC FLUID SPDESC:OTHER ORDERED: BF Cult/GS COMMENTS: LEFT LOWER LOBE FLUID Verbal to DR. AILIN BURROUGHS by [id number] at 1554 on 11/16/14. Results read back accurately. Procedure Result Verified Site Body Fluid Gram Stain Final 11/15/14- 1256 ML 3+ Neutrophils 3+ Gram Negative Bacilli Preparation By Cytospin Smear Body Fluid Culture Final 11/17/14- 1046 ML Organism 1 KLEBSIELLA OXYTOCA Quantity 1+ Organism 2 STREPTOCOCCUS MITIS/ORALIS Quantity 3+ 1. KLEBSIELLA OXYTOCA M.I.C. RX --------- ------ Ampicillin R Cefazolin >=64 R Cefepime <=1 S Ceftriaxone <=1 S Ciprofloxacin <=0.25 S Gentamicin <=1 S Levofloxacin <=0.12 S Meropenem <=0.25 S CONTINUED ON NEXT PAGE * ML=Testing performed at Main Lab DEPARTMENT OF PATHOLOGY, [address] [place] [address] Niko Bryan M.D. Director [facility] # [id number] RUN DATE: 11/17/14 [facility] LAB LIVE PAGE 2 RUN TIME: [address] [place], [place] [address] Specimen Inquiry Patient: REGGIE MENDOSA [id number] (Continued) Specimen: [id number] Collected: 11/14/14 Received: 11/14/14 (Continued) Procedure Result Verified Site Body Fluid Culture Final (continued) 11/17/14- 1045 1. KLEBSIELLA OXYTOCA (continued) M.I.C. RX --------- ------ Nitrofurantoin 32 S Tetracycline <=1 S Pipercillin/Tazobactam <=4 S Trimethoprim/Sulfamethoxazole <=20 S Amoxicillin/Clavulanic Acid <=2 S Aztreonam <=1 S 2. STREPTOCOCCUS MITIS/ORALIS M.I.C. RX --------- ------ Chloramphenicol 4 S Ampicillin 0.25 S Penicillin 0.25 I Meropenem 0.12 S Cefepime 1 S * Cefotaxime 1 S Ceftriaxone 0.5 S Levofloxacin 0.5 S Azithromycin >2 R Clindamycin <=0.06 S Erythromycin >0.5 R Tetracycline <=0.50 S Vancomycin 0.5 S Contact the Microbiology Department for any additional antibiotic reporting. END OF REPORT * ML=Testing performed at Main Lab DEPARTMENT OF PATHOLOGY, [address] [place] [address] Niko Bryan M.D. Director [facility] # [id number] 12 RUN DATE: 11/28/14 [facility] LAB LIVE PAGE 1 RUN TIME: [address] [place] [address] Specimen Inquiry Name: REGGIE MENDOSA : [address]: Evelina Shelley MD Acct: [id number] Unit: [id number] AGE: 74 Location: OR Re11/14/14 SEX: M Status: REG SDC SPEC: [id number] MICKEY: 11/14/14-[address] [facility] [address]: Evelina Shelley MD REQ: [id number] RECD: 11/14/14 STATUS: RES DAVIHR DR: Ailin Burroughs MD _ SOURCE: [facility] SPDESC:OTHER ORDERED: Fungal - Other COMMENTS: LEFT LOWER LOBE FLUID Procedure Result Verified Site Fungal Cult - Other Sources Preliminary 11/28/14- 1225 ML Organism 1 RUBÉN ALBICANS 1 COLONY ISOLATED OF 11/21/2014 END OF REPORT * ML=Testing performed at Main Lab DEPARTMENT OF PATHOLOGY, [facility] [place], [place] [address] Niko Bryan M.D. Director [facility] # [id number] 13 LEFT LOWER LOBE FLUID 14 RUN DATE: 12/04/14 [facility] LAB LIVE PAGE 1 RUN TIME: [address] [facility] [place], [place] [address] Specimen Inquiry Name: REGGIE MENDOSA : [address]: Evelina Shelley MD Acct: [id number] Unit: [id number] AGE: 74 Location: OR Re11/14/14 SEX: M Status: REG SDC SPEC: [id number] MICKEY: 11/14/14-[address] [facility] [address]: Evelina Shelley MD REQ: [id number] RECD: 11/14/14 STATUS: RES [facility] DR: Ailin Burroughs MD _ SOURCE: [facility] SOUR SPDESC:OTHER ORDERED: Fungal - Other COMMENTS: LEFT LOWER LOBE FLUID Procedure Result Verified Site Fungal Cult - Other Sources Preliminary 12/04/14- 110 ML Organism 1 RUBÉN ALBICANS 1 COLONY ISOLATED OF 11/21/2014 END OF REPORT * ML=Testing performed at Main Lab DEPARTMENT OF PATHOLOGY, [facility] [place], [place] [address] Niko Bryan M.D. Director [facility] # [id number] 15 RUN DATE: 12/11/14 [facility] LAB LIVE PAGE 1 RUN TIME: [address] [facility] [place], [place] [address] Specimen Inquiry Name: REGGIE MENDOSA : [address]: Evelina Shelley MD Acct: [id number] Unit: [id number] AGE: 74 Location: OR Re11/14/14 SEX: M Status: REG SDC SPEC: [id number] MICKEY: 11/14/14-[address] [facility] [address]: Evelina Shelley MD REQ: [id number] RECD: 11/14/14 STATUS: PARAG LEAVITT DR: Ailin Burroughs MD _ SOURCE: [facility] SOUR SPDESC:OTHER ORDERED: Fungal - Other COMMENTS: LEFT LOWER LOBE FLUID Procedure Result Verified Site Fungal Cult - Other Sources Final 12/11/14- 1222 L Organism 1 RUBÉN ALBICANS 1 COLONY ISOLATED OF 11/21/2014 END OF REPORT * ML=Testing performed at Main Lab DEPARTMENT OF PATHOLOGY, [facility] [place] [address] Niko Bryan M.D. Director [facility] # [id number] 16 SOURCE: LUNG, LEFT LOWER LOBE FLUID MYCOBACTERIAL CULTURE FINAL No Growth after 60 days of incubation. Test Performed by: [place] [address] Licensed Investment Sales Assistant: Braydon Farr II, M.D., Ph.D. 17 RUN DATE: 11/16/14 [facility] LAB LIVE PAGE 1 RUN TIME: [address] [facility] [place], [place] [address] Specimen Inquiry Name: REGGIE MENDOSA : [address]: Evelina Shelley MD Acct: [id number] Unit: [id number] AGE: 74 Location: OR Re11/14/14 SEX: M Status: REG [facility] SPEC: [id number] MICKEY: 11/14/14-[address] [facility] [address]: Evelina Shelley MD REQ: [id number] RECD: 11/14/14 STATUS: SOUT _ ORDERED: CYTO EXT STUDY, LEVEL IV, THIN PREP NON G FINAL DIAGNOSIS 1) Bronchial brushing, left lower lobe: Benign respiratory cells. 2) Bronchial lavage, left lower lobe: Benign respiratory cells. A cell block was prepared in the evaluation of this specimen. Smears and cell block reveal similar findings. 1. BRONCHIAL - LEFT - BRUSHING, 2. BRONCHIAL LAVAGE LEFT - LAVAGE CLINICAL HISTORY Lung mass left lower lobe GROSS DESCRIPTION #1) 1 Alcohol fixed slide(s) received from clinician. #2) 10 mls of blood red fluid. Signed (signature on file) Niko Bryan MD 1220 END OF REPORT * ML=Testing performed at Main Lab DEPARTMENT OF PATHOLOGY, [address] [place] [address] Niko Bryan M.D. Director [facility] # [id number] 18 Because ethnic data is not always readily available, this report includes an eGFR for both -Americans and non- Americans. The National Kidney Disease Education Program (NKDEP) does not endorse the use of the MDRD equation for patients that are not between the ages of 18 and 70, are , have extremes of body size, muscle mass, or nutritional status, or are non- or non-. According to the National Kidney Foundation, irrespective of diagnosis, the stage of the disease is based on the level of kidney function: Stage Description GFR(mL/min/1.73 m(2)) 1 Kidney damage with normal or decreased GFR 90 2 Kidney damage with mild decrease in GFR 60-89 3 Moderate decrease in GFR 30-59 4 Severe decrease in GFR 15-29 5 Kidney failure <15 (or dialysis) 19 Please note: Effective November 01, 2014, the reference value for this test has changed due to the validation and activation of a new reagent lot number. 20 Because ethnic data is not always readily available, this report includes an eGFR for both -Americans and non- Americans. The National Kidney Disease Education Program (NKDEP) does not endorse the use of the MDRD equation for patients that are not between the ages of 18 and 70, are , have extremes of body size, muscle mass, or nutritional status, or are non- or non-. According to the National Kidney Foundation, irrespective of diagnosis, the stage of the disease is based on the level of kidney function: Stage Description GFR(mL/min/1.73 m(2)) 1 Kidney damage with normal or decreased GFR 90 2 Kidney damage with mild decrease in GFR 60-89 3 Moderate decrease in GFR 30-59 4 Severe decrease in GFR 15-29 5 Kidney failure <15 (or dialysis) 21 magnesium added 12/29/13 by [id number] 22 Because ethnic data is not always readily available, this report includes an eGFR for both -Americans and non- Americans. The National Kidney Disease Education Program (NKDEP) does not endorse the use of the MDRD equation for patients that are not between the ages of 18 and 70, are , have extremes of body size, muscle mass, or nutritional status, or are non- or non-. According to the National Kidney Foundation, irrespective of diagnosis, the stage of the disease is based on the level of kidney function: Stage Description GFR(mL/min/1.73 m(2)) 1 Kidney damage with normal or decreased GFR 90 2 Kidney damage with mild decrease in GFR 60-89 3 Moderate decrease in GFR 30-59 4 Severe decrease in GFR 15-29 5 Kidney failure <15 (or dialysis) 23 Reference Range and Interpretation: TnI (ng/mL) Interpretation Less Than 0.03 ng/mL Not supportive of diagnosis of ID 0.03 - 0.50 ng/mL Indeterminate: suggest serial studies if clinically indicated. Greater than 0.5 ng/mL Consistent with diagnosis of ID 24 magnesium added 12/29/13 by [id number] 25 magnesium added 12/29/13 by [id number] 26 Desirable <150 Borderline high 150-199 High 200-499 Very High >500 27 Desirable <200 Borderline high 200-239 High >239 28 Low <40 Desirable: 40-60 High: >60 29 Desirable <100 Near Optimal 100-129 Borderline high 130-159 High 160-189 Very High >189 30 FEDERICO VALUE=2.00 ( OF 07/21/06) Recommended INR for Patients on Oral Anticoagulants Prophylaxis 2.0 - 3.0 Treatment of thrombosis 2.0 - 3.0 Prevention of embolism 2.0 - 3.0 Prevention of embolism from prosthetic heart valves 2.5 - 3.5 31 FEDERICO VALUE=2.00 ( OF 07/21/06) Recommended INR for Patients on Oral Anticoagulants Prophylaxis 2.0 - 3.0 Treatment of thrombosis 2.0 - 3.0 Prevention of embolism 2.0 - 3.0 Prevention of embolism from prosthetic heart valves 2.5 - 3.5 32 FEDERICO VALUE=2.00 ( OF 07/21/06) Recommended INR for Patients on Oral Anticoagulants Prophylaxis 2.0 - 3.0 Treatment of thrombosis 2.0 - 3.0 Prevention of embolism 2.0 - 3.0 Prevention of embolism from prosthetic heart valves 2.5 - 3.5 33 FASTING 34 Classification: Desirable . 35 Classification: Low . 36 CALCULATED LDL APPROXIMATES THE VALUE OF A DIRECT LDL MEASUREMENT. Classification: Near or above optimal . 37 Anion gap measurement may be of limited value in the presence of any alkalosis, especially in a combined acid base disorder. . Procedures Date CPT Code Description Status 09/17/2017 71484 EKG Tracing & Interpretation Completed 05/11/2017 16141 Holter Monitor Review (24 hr)dr davis & leesa Completed only 05/07/2017 32317 ECG Monitor/Recording W/Visual Superimposition Scanning Completed 05/07/2017 96015 ECG Monitor/Recording W/Visual Superimposition Scanning Completed 05/04/2017 39003 EKG Tracing & Interpretation Completed 10/29/2016 12030 Arthroplasty,Total Shoulder Replacement (TSR) Completed 10/29/2016 68123 Arthroplasty,Total Shoulder Replacement (TSR) Completed 09/15/2016 03682 EKG Tracing & Interpretation Completed 02/07/2016 28546 Mobile Cardiovascular Telemetry Over 24 HR Up To 30 Completed Days 02/04/2016 35847 EKG Tracing & Interpretation Completed 01/21/2016 16830 Pulmonary Function><Bronchodil Completed 01/21/2016 37250 Plethysmography Determination Lung Volumes & Per Completed Airway Resist 10/24/2015 45822 ECHO Transthorasic Realtime 2D W Doppler & Color Completed Flow Hosp 10/22/2015 99344 Treadmill Interp/Report Only Completed 10/22/2015 27865 Stress Test Supervsn W/Out I/R Completed 10/17/2015 55466 EKG Tracing & Interpretation Completed 04/05/2015 74081 EKG Tracing & Interpretation Completed 11/20/2014 82849 Diffusing Capacity Completed 11/20/2014 37262 Plethysmography Determination Lung Volumes & Per Completed Airway Resist 11/20/2014 09810 Pulmonary Stress Test Simple Completed 11/14/2014 62056 Bronchoscopy W/Transbronchial Lung Biopsy Completed 11/14/2014 74288 Bronchoscopy With Bronchial Alveolar Lavage Completed 11/14/2014 98278 bronchoscopy w/washing (hosp) Completed 04/25/2014 44506 EKG Tracing & Interpretation Completed 03/08/2014 55633 Repair Hernia Umbilical > 5 Yrs, Reducible Completed 02/14/2014 96877 Stress Test Completed 02/14/2014 31229 Myocardial Perfusion Imaging Tomographic (Spect) Completed Multiple Studies 02/06/2014 38612 Holter Monitoring 24 HR New Completed 01/12/2014 25458 EKG Tracing & Interpretation Completed 11/29/2013 45646 EKG Tracing & Interpretation Completed 05/24/2013 68429 EKG Tracing & Interpretation Completed 10/28/2012 96212 Carotid Doppler,Bilateral Completed 10/14/2012 65864 Holter Monitoring 24 HR New Completed 10/12/2012 01693 ECHO Transthoracic, Real-Time 2D With Doppler And Color Completed Flow 09/30/2012 10471 EKG Tracing & Interpretation Completed 01/28/2008 58923 Holter Monitor Completed 12/29/2007 01417 EKG Tracing & Interpretation Completed 12/29/2007 46250 EKG Tracing & Interpretation Completed 08/25/2007 64796 EKG Tracing & Interpretation Completed 08/25/2007 75492 EKG Tracing & Interpretation Completed 06/13/2007 14340 EKG, Interpretation Only Completed 06/12/2007 56500 EKG, Interpretation Only Completed 06/02/2007 85243 Stress Test Completed 06/02/2007 15658 Echocardiogram Completed 06/02/2007 17239 Echocardiogram Completed 06/02/2007 87137 Echocardiogram Completed 06/02/2007 44315 Pulse Doppler & Continuous Wave Completed 06/02/2007 06997 Pulse Doppler & Continuous Wave Completed 06/02/2007 76792 Color Doppler Completed 06/02/2007 31746 Color Doppler Completed 06/02/2007 11995 Color Doppler Completed 06/02/2007 44538 ECHO/Stress Completed 05/27/2007 38255 EKG Tracing & Interpretation Completed 03/22/2007 84542 EKG Tracing & Interpretation Completed 03/22/2007 11351 EKG Tracing & Interpretation Completed 03/08/2007 28551 Holter Monitor Completed 12/07/2006 36316 EKG Tracing & Interpretation Completed 10/13/2006 65416 Stress Test Completed 10/13/2006 70110 Stress Test Completed 10/13/2006 96586 ECHO/Stress Completed 10/06/2006 42021 EKG Tracing & Interpretation Completed 10/06/2006 67768 EKG Tracing & Interpretation Completed 09/09/2006 11997 Color Doppler Completed 09/09/2006 93169 Color Doppler Completed 09/09/2006 57036 Pulse Doppler & Continuous Wave Completed 09/09/2006 21038 Echocardiogram Completed 09/09/2006 96529 Holter Monitor Completed 09/09/2006 83599 Holter Monitor Completed 09/03/2006 90946 EKG Tracing & Interpretation Completed 09/03/2006 70912 EKG Tracing & Interpretation Completed 07/24/2006 35602 Selective Coronary Angioplasty Completed 07/24/2006 82287 S/I/R Inj Proc Vent And Or Atrial Completed 07/24/2006 93959 S/I/R Inj Proc Vent And Or Atrial Completed 07/24/2006 50346 Coronary Angiography Completed 07/24/2006 52362 Inj Proc LFT Vent/LFT Atrl Angio Completed 07/24/2006 70312 Inj Proc LFT Vent/LFT Atrl Angio Completed 07/24/2006 60280 Left Heart Catheterization Completed 07/24/2006 00109 EKG, Interpretation Only Completed 07/24/2006 64569 EKG, Interpretation Only Completed 07/21/2006 19532 Stress Test Completed 07/21/2006 67989 Stress Test Completed 07/21/2006 05839 Echocardiogram Completed 07/21/2006 81553 Echocardiogram Completed 07/21/2006 38616 Pulse Doppler & Continuous Wave Completed 07/21/2006 04107 Color Doppler Completed 07/21/2006 79100 Color Doppler Completed 07/21/2006 58182 ECHO/Stress Completed 07/20/2006 02519 EKG Tracing & Interpretation Completed 07/20/2006 64622 EKG Tracing & Interpretation Completed Encounters Type Date Location Provider CPT E/M Dx Office Visit 09/17/2017 [facility] [place] [place] [address] Z95.1 9:00a [facility] K74.60 N18.9 Z99.81 J44.9 I48.1 R18.8 Office Visit 05/19/2017 9:00a [facility] [place] [address] Z96.612 C.M.A. Z47.1 Office Visit 05/04/2017 9:40a [facility] Chuy Hernandez M.D., 45516 I10 At [facility] I48.1 I25.10 Office Visit 03/13/2017 8:30a [facility] [place] [address] J44.9 Services Of [facility] R09.02 Z99.81 Office Visit 03/10/2017 9:15a [facility] [place] [address] Z96.612 C.M.A. Z47.1 Office Visit 10/30/2016 9:48a [facility] Carol Win, 38043 J44.9 Assoc,pc MANAGER [facility] Hospital[facility] K74.60 I25.10 Z96.612 Office Visit 10/29/2016 9:47a [facility] Klever Kaplan, 60503 K74.60 Assoc,pc PA Hospitalists J44.9 I25.10 Z96.612 Office Visit 09/15/2016 9:20a [facility] Chuy Hernandez M.D., 94470 I25.10 [facility] At [facility] I48.2 I10 Z01.810 M19.012 Office Visit 09/12/2016 8:30a [facility] [place] [address] J43.9 Services Of Network Systems Administrator J98.4 R09.02 E66.09 Office Visit 08/14/2016 9:45a [facility] [place] [address] M75.122 Loly M19.012 Office Visit 07/29/2016 8:30a [facility] Abundio George 85676 M75.122 Of Loly LIRIANO M19.212 Office Visit 06/16/2016 1:30p [facility] Abundio George 51218 M75.122 Of Loly LIRIANO S46.102A M75.42 Office Visit 06/12/2016 2:00p [facility] [place] [address] J43.9 Services Of Network Systems Administrator J98.4 R09.02 Office Visit 03/31/2016 1:20p [facility] Chuy Hernandez M.D., 20596 I48.1 Network Systems Administrator At [facility] I25.9 I47.2 R07.9 I25.10 Office Visit 02/04/2016 4:00p [facility] Chuy Hernandez M.D., 33761 R07.9 Network Systems Administrator At [facility] I48.2 Office Visit 01/25/2016 11:30a [facility] [place] [address] J43.9 Services Of Network Systems Administrator J98.4 R09.02 Office Visit 12/31/2015 8:30a [facility] [place] [address] J43.9 Services Of Network Systems Administrator R06.02 E66.09 J98.4 Office Visit 10/26/2015 3:20p [facility] Chuy Hernandez M.D., 39317 I25.9 Network Systems Administrator At [facility] [place] I48.2 R06.02 I10 E66.9 Office Visit 10/17/2015 2:40p [facility] Chuy Hernandez M.D., 85882 R07.89 Network Systems Administrator At [facility] I25.9 I10 I48.2 E78.5 Office Visit 04/05/2015 9:40a [facility] Chuy Hernandez M.D., 38779 414.9 Network Systems Administrator At [facility] 401.9 272.4 427.31 Office Visit 02/19/2015 10:15a [facility] [place] [address] 492.8 Services Of Network Systems Administrator 518.89 477.9 530.81 Office Visit 11/20/2014 10:00a [facility] [place] [address] 786.09 Services Of Network Systems Administrator 492.8 477.9 530.81 518.89 Office Visit 11/01/2014 9:30a [facility] [place] [address] 786.09 Services Of Network Systems Administrator 492.8 786.2 530.81 477.9 Office Visit 04/25/2014 2:45p [facility] Chuy Hernandez M.D., 30231 414.9 Network Systems Administrator At [facility] 401.9 427.31 272.4 Office Visit 02/09/2014 2:30p [facility] Of Chuy Hernandez M.D., 96269 414.9 Network Systems Administrator At [facility] 401.9 427.31 Office Visit 01/30/2014 3:30p [facility] Chuy Hernandez M.D., 05121 427.81 Network Systems Administrator At [facility] 401.9 414.9 427.31 Office Visit 01/12/2014 3:30p [facility] Soledad Hernandez M.D., 44862 401.9 Network Systems Administrator At [facility] 414.9 427.81 427.31 Office Visit 11/29/2013 2:30p [facility] Soledad Hernandez M.D., 35778 272.4 Network Systems Administrator At [facility] 401.9 427.89 414.9 Office Visit 05/24/2013 3:00p [facility] Soledad Hernandez M.D., 40113 414.9 [facility], [facility] 272.4 Office Visit 11/09/2012 8:00a [facility] Soledad Hernandez M.D., 05471 414.9 [facility], [facility] 401.9 427.89 Office Visit 10/19/2012 3:15p [facility] Of Chuy Hernandez M.D., 18154 414.9 [facility], [facility] Office Visit 09/30/2012 3:15p [facility] Of Chuy Hernandez M.D., 43240 414.9 [facility] At [facility] 427.89 Office Visit 12/29/2007 11:20a [facility] Qutaybeh S. Maghaydah, 52177 414.01 M.D. V45.81 414.8 401.1 427.69 427.31 Office Visit 08/25/2007 10:40a [facility] Qutaybeh S. Maghaydah, 35774 414.01 M.D. V45.81 427.31 414.8 401.1 414.04 Office Visit 05/27/2007 8:30a [facility] Qutaybeh S. Maghaydah, 74821 414.01 M.D. 401.1 V45.81 414.8 Office Visit 03/22/2007 10:20a [facility] Qutaybeh S. Maghaydah, 28940 414.01 M.D. 401.1 427.31 Office Visit 12/07/2006 9:40a [facility] Qutaybeh S. Maghaydah, 27941 414.01 M.D. V45.81 Office Visit 10/13/2006 9:30a [facility] Qutaybeh S. Maghaydah, 46009 414.01 M.D. V45.81 401.1 794.31 414.04 Office Visit 10/06/2006 3:00p [facility] Qutaybeh S. Maghaydah, 66282 414.01 M.D. 414.8 427.31 427.69 Office Visit 09/03/2006 11:00a [facility] Qutaybeh S. Maghaydah, 15586 414.01 M.D. V45.81 414.04 401.1 Office Visit 07/30/2006 9:10a [facility] Qutaybeh S. Maghaydah, 17037 414.01 M.D. 401.1 Office Visit 07/20/2006 10:20a [facility] Qutaybeh S. Maghaydah, 06013 401.1 M.DBerto 786.05 Plan of Care Future Appointment(s):10/27/2017 11:45 am - Husam Nelson DO FAC at [facility]09/30/2017 - Husam Nelson, DO FACCZ95.1 Presence of aortocoronary bypass graftComments:Keep taking torsemide 40 mg dailyDo not take any more lasix (furosemide) Take metolazone with torsemide on Thursday, and Thursday.Follow up:3 weeks with BMP iltzkA76.60 Unspecified cirrhosis of vsmsiL02.9 Chronic kidney disease, eohaqacpgadV69.8 Other ppptpkzC90.1 Persistent atrial fibrillation
--- OUTSIDE RECORDS SUMMARY | 2017-10-05 01:02 | XMS REPORT ---
:1940 External Reference #:[id number] Author Organization [facility] Address [address] [place] [address] Phone [phone] Care Team Providers Name Role Phone HCP/LW on file Primary Care Physician Unavailable Payers Type Date Identification Numbers Payment Provider Subscriber Medicare Primary Policy Number: [id number] [facility] [employer] PayID: [id number] [address] [place] [address] [employer] Policy Number: [id number] [place] Reggie Mendosa PayID: [id number] [address] [place] [address] Problems Date Description Provider Status Onset: 07/12/2013 Carcinoma in situ of prostate Ailin Burroughs MD Active Onset: 07/12/2013 Carcinoma in situ of colon Ailin Burroughs MD Active Onset: 09/13/2013 Gastroesophageal reflux disease Ailin Burroughs MD Active Onset: 12/27/2013 Coronary arteriosclerosis Ailin Burroughs MD Active Onset: 07/06/2014 Pulmonary function studies abnormal Ailin Burroughs MD Active Onset: 07/06/2014 Cirrhosis of liver not due to alcohol Ailin Burroughs MD Active Onset: 08/01/2015 Hepatic fibrosis Jesse Haywood D.O. Active Onset: 08/01/2015 Essential hypertension Jesse Haywood D.O. Active Onset: 01/31/2016 Peripheral vascular disease Jesse Haywood D.O. Active Onset: 06/05/2016 Chronic obstructive lung disease Jesse Haywood D.O. 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 Cigarette Use Former Cigarette Smoker Quit 1999, up to 2 PPD, smoked for 35+ yrs ETOH Use Denies alcohol use Recreational Drug Use Denies Drug Use Smoking Patient is a former smoker Allergies, Adverse Reactions, Alerts Date Description Reaction Status Severity Comments 05/05/2013 Penicillin active rash 05/05/2013 Pravastatin active muscle aches 07/15/2017 Doxycycline active heartburn, hiatial hernia inflammed per pt 08/04/2017 Prednisone active severe heartburn Medications Medication Date Status Form Strength Qnty SIG Indications Ordering Provider Simethicone 09/17 Active Capsules 125mg 120ca take 1 R14.0 Yobany ps capsule Jesse DBertoO. by mouth 4 times per day after meals and at bedtime asneeded for gas pain Probiotic & 09/17 Active Capsules 30cap 1 unit R14.0 Yobany Acid s dose by Jesse D.O. Formula Extra mouth Strength every day ok to switch with another probiotic . Levofloxacin 09/14 Hx Tablets 750mg 4tabs 1 tablet by mouth - daily 09/18 Prednisone 09/14 Hx Tablets 10mg 10tab taper as s written - 09/18 Levoxyl 09/07 Active Tablets 50mcg 90tab take 1 abbie s tablet by Jay Jay MolinaO. mouth daily Furosemide 07/31 Active Tablets 20mg 30tab 2 by s mouth every day Oxygen NC 07/31 Active continuou s o2 via nc at 3 Liters Ranitidine HCL 07/15 Active Capsules 300mg 180ca 1 by Yobany ps mouth Jesse D.O. twice a day Magox 400 06/16 Active Tablets 400(241.3 360ta 2 tablets abbie mg) mg bs every Jesse, D.O. night at bedtime as directed Symbicort 06/15 Active Aerosol 160-4.5mc inhale 2 g/Act puffs by mouth twice a day gargle after use Spiriva Respimat 05/12 Active Aerosol 2.5mcg/Ac inhale 2 t puffs daily Tamsulosin HCL 11/10 Active Capsules 0.4mg 180ca 2 by R35.1 Yobany ps mouth Jay Jay MolinaO. every day Ipratropium 09/29 Active Solution 0.5-2.5(3 use twice Karsten, [place]/Albuterol )mg/3ML a day as MD Evelina Sulfate needed in nebulizer Tums 01/29 Active Chewtabs 500mg daily prn Pantoprazole 07/[address] 40mg take 1 Unknown tablet by mouth every morning and 1 tab every evening prior to meals for acid reflux Lactulose 07/29 Active Solution 10GM/15ML 1 Tbs po daily, 3x/wk ( M/W/F) Multiple Vitamins 03/23 Active Tablets 30tab 1 po qd Silcoff s Jordyn Rubio Ecotrin Low 03/[address] 81mg 100ta 1tab po Unknown bs daily for cad/cva prophylax is Spironolactone Active Tablets 50mg daily Unknown Isosorbide Active Tablets ER 30mg one tab Unknown Mononitrate ER / 24HR po daily Levoxyl 09/04 Hx Tablets 75mcg 90tab 1/2 tab Yobany s by mouth Jay Jay MolinaO. - every day 09/07 Azithromycin 07/31 Hx Tablets 500mg take 1 tablet by - mouth 08/05 once daily Methylprednisolon 07/31 Hx TBPK 4mg take as Unknown directed - on pack 09/16 Methylprednisolon 07/15 Hx Tablets 4mg 10tab 2 tabs J44.9 Yobany s daily for Abby Molina. - 5 days 07/20 then Levothyroxine 07/13 Hx Tablets 75mcg 90tab 1 by Yobany s mouth Jay Jay MolinaO. - every day 09/04 Ranitidine HCL 06/16 Hx Capsules 150mg 180ca 1 tab by Yobany ps mouth Jesse, D.O. - twice a 07/15 day as needed for heartburn Xyzal Allergy 06/15 Hx Tablets 5mg take 1 Unknown 24HR tablet by - mouth 07/31 daily in the evening for allergy prn Fluocinonide 06/15 Hx Ointment 0.05% apply bid-tid - to 09/16 affected areas as neede Qnasl 05/13 Hx Aerosol 80mcg/Act - 07/31 Famotidine 01/12 Hx Tablets 40mg 60tab take 1 K21.9 cha s tablet by Eric Molina.O. - mouth 2 06/15 times per day for gastroeso phageal reflux disease Prednisone 01/10 Hx Tablets 20mg 8tabs take 2 tablets - by mouth 01/13 once daily with food x 4 days Doxycycline 01/10 Hx Capsules 100mg 19cap take 1 Unknown Hyclate s capsule - by mouth 06/15 twice a day Proair HFA 11/10 Hx Aerosol 108(90Bas inhale 1 e) puff - mcg/Act every 6 07/31 hours needed Oxycodone-Acetami 10/30 Hx Tablets 5-325mg take 2 Unknown tablets - by mouth 12/28 every hours if needed for (Moderate ) pain . Oxygen NC 09/29 Hx use at 2 lpm hs MD Evelina - 08/04 Flutter Valve 09/29 Hx uses Karsten twice MD Evelina - daily 07/31 after Tx Triamcinolone 07/25 Hx Ointment 0.1% Apply To Unknown Acet Legs Once - Daily 09/16 Prednisone 06/05 Hx Tablets 10mg 15tab 2 tabs J44.9 Shantal s for 5 Jesse D.O. - days then 09/29 1 tab for 5 days Doxycycline 05/27 Hx Capsules 100mg take 1 Unknown Monohydrate capsule - by mouth 06/06 twice a day Tramadol HCL 05/15 Hx Tablets 50mg 45tab 1-2 by M25.512 Yobany, s mouth Jesse, D.O. - every 6 09/29 hours needed for pain Symbicort 02/04 Hx Aerosol 80-4.5mcg 2 puffs Karsten, /2015 /Act 2x/day; MD Evelina - gargle 06/16 after use Voltaren 02/01 Hx Gel 1% 100gm 2 gm benita apply to Gisell Molina - affected 06/04 every day # 100gm Ranitidine HCL 01/30 Hx Tablets 150mg 180ta 1 by M75.102 Yobany bs mouth Gisell Molina - twice a 02/19 day needed Flonase 01/30 Hx Suspension 50mcg/Act 16uni 2 sprays H65.23 benita ts into each Gisell Molina - nostril 06/15 every for nasal congestio n. mariel allergies . rinse mouth post Symbicort 01/24 Hx Aerosol 160-4.5mc inhale 2 g/Act puffs by - mouth 06/05 twice a day gargle after use Metanx 08/16 Hx Capsules 3-90.314- 180ca 1 by M75.102 Yobany 2-35mg ps mouth Gisell Molina - twice a Pantoprazole 07/25 Hx Solution 40mg 1 every Rec morning Associates - and 1 [facility] 01/30 before dinner Furosemide 01/29 Hx Tablets 20mg 1 by mouth - every day 07/29 Xifaxan 01/29 Hx Tablets 550mg 1 by mouth - every 07/31 other Boost 01/29 Hx Liquid 8 Fl Oz daily - 07/31 Advair HFA 11/29 Hx Aerosol 115-21mcg 1-2 puffs /Act twice a - day 01/29 Fluocinonide 10/09 Hx Cream 0.05% 60gm apply a thin - layer to 07/31 affected areas daily a day until clear Losartan 10/09 Hx Tablets 50mg take 1 Unknown tablet - daily in 09/16 morning for high blood pressure Losartan 07/24 Hx Tablets 25mg 60tab take 1 Unknown s tablet by - mouth 10/09 twice daily Lamisil At 07/06 Hx Cream 1% 45gm use 110.4 Manjeet, [employer] between Ailin LIRIANO - affected 01/29 toe twice a day for up to 2 weeks. spray shoes. change footweasr post excercise Fluticasone 05/11 Hx Suspension 50mcg/Act 1unit 2 sprays 786.2 s into each Ailin LIRIANO - nostril 01/29 every day for nasal congestio n. mariel allergies . rinse mouth post Loradamed 05/11 Hx Tablets 10mg 90tab one tab 786.2 s by mouth Ailin LIRIANO - daily to 07/06 see if helps your cough. use reg for 2 weeks before calling it a failure. Lisinopril 01/30 Hx Tablets 2.5mg 90tab take 1 401.9 Unknown s tablet - every 07/24 morning. Loratadine 09/13 Hx Tablets 10mg 90tab 1 po qd 786.2 s daily Ailin LIRIANO - mariel 02/09 allergies . Xifaxan 07/31 Hx Tablets 550mg 30tab one tab Unknown s po qd - 01/30 Furosemide 07/29 Hx Tablets 20mg 90tab /2 s tablet Ailin LIRIANO - once 01/29 daily for edema Furosemide 25 Hx Tablets 20mg 52tab take 1 Sopabbie s tablet by Jay Jay MolinaOBerto - mouth 08/04 daily for 7 day then return to 10/06 pill Zostavax / Hx Solution [id number]/ 1unit reconstit Rec 0.65ML s angelica as Ailin LIRIANO - directed. 07/21 inject entire contents sc in upper arm x 1. Loradamed 05/19 Hx Tablets 10mg 90tab one tab 786.2 s po daily Ailin LIRIANO - to see if 09/13 helps your cough. use reg for weeks before calling it a failure. Fluticasone 05/19 Hx Suspension 50mcg/Act 1unit 2 sprays 786.2 Manjeet s into each Ailin LIRIANO - nostril 07/06 qd nasal congestio n. mariel allergies . rinse mouth post. need to use regularly for efficacy, Furosemide 03/17 Hx Tablets 10mg 80tab 1 po qd s - 07/06 Align 03/16 Hx Capsules 4mg - 12/26 Spironolactone 03/16 Hx Tablets 25mg 90tab 1 by Manjeet s mouth Ailin LIRIANO - every day 01/29 Probiotic 03/15 Hx Capsules using 1 po every - pm 01/29 Ferrous Sulfate 03/09 Hx Tablets 325(65Fe) otc 1 po q 2d Manjeet mg Ailin LIRIANO - 07/06 Pantoprazole 03/09 Hx Tablets 40mg 60tab take 1 Manjeet s tablet by Ailin LIRIANO - mouth 07/26 twice a day Nadolol Hx Tablets 20mg 90tab 1/2 po Unknown s qd. being - tapered 02/07 off by marvin as no longer has portal htn. Zantac Hx Tablets 150mg one po 786.2 Unknown daily as - per jethro 07/31 for cough /2014 and reflux 530.81 Oxygen NC - 05/14/2016 Hx continuous o2 via nc at 2 lpm hs Unknown Medications Administered in Office Medication Date Status Form Strength Qnty SIG Indications Ordering Provider injection, Administered Injection eric Haywood, 10 mg 016 Jesse D.O. injection, Administered Injection Braydon reyes, 10 mg 016 Jordyn Carmona injection, Administered Injection isaura Haywoodalog, 10 mg 016 Jesse, D.O. Immunizations CPT Code Status Date Vaccine Lot # [id number] Given 07/30/2017 Influenza,Unspecified [id number] Given 06/05/2016 Influenza Virus Vaccine, Quadrivalent, Split, [id number] Preservative Free 79034 Given 08/10/2015 Prevnar 13 [id number] 25647 Given 07/25/2015 Influenza Vaccine Split Virus Preservative Free [place] Use 17147 Given 07/21/2013 Zostavax 13052 Given 07/18/2013 Flu, Split Virus [id number] 67773 Given 10/16/2011 Pneumococcal Immunization 98256 Given 09/10/2010 Adacel or Boostrix, TDaP 22041 Given 04/22/2007 Td Immunization 43756 Given 08/20/2006 Pneumococcal Immunization Vital Signs Date Vital Result Comment 09/17/2017 BP Systolic 96 mmHg BP Diastolic 58 mmHg Heart Rate 71 /min O2 % BldC Oximetry 913 % Weight 247.00 lb per pt from MD appt earlier today 08/04/2017 BP Systolic 138 mmHg BP Diastolic 58 mmHg Heart Rate 53 /min O2 % BldC Oximetry 96 % on 3L via NC Body Temperature 97.7 F Weight 258.00 lb w/shoes 07/15/2017 BP Systolic 112 mmHg BP Diastolic 58 mmHg Heart Rate 48 /min O2 % BldC Oximetry 92 % Body Temperature 97.6 F Weight 270.00 lb w/shoes 06/16/2017 BP Systolic 126 mmHg BP Diastolic 60 mmHg O2 % BldC Oximetry 9899 % at rest Height 74 inches 6'2" Weight 269.00 lb BMI (Body Mass Index) 34.5 kg/m2 01/12/2017 BP Systolic 120 mmHg BP Diastolic 54 mmHg Heart Rate 51 /min O2 % BldC Oximetry 91 % Weight 268.00 lb w/shoes 11/10/2016 BP Systolic 106 mmHg BP Diastolic 58 mmHg Heart Rate 57 /min O2 % BldC Oximetry 95 % Weight 275.00 lb 09/30/2016 BP Systolic 122 mmHg BP Diastolic 58 mmHg Height 74.25 inches 6'2.25" with shoes Weight 266.00 lb with shoes BMI (Body Mass Index) 33.9 kg/m2 06/05/2016 BP Systolic 123 mmHg BP Diastolic 51 mmHg Heart Rate 65 /min O2 % BldC Oximetry 93 % Height 73.75 inches 6'1.75" with shoes Weight 256.00 lb with shoes BMI (Body Mass Index) 33.1 kg/m2 05/15/2016 BP Systolic 124 mmHg BP Diastolic 58 mmHg Weight 257.00 lb w/shoes 03/21/2016 BP Systolic 122 mmHg BP Diastolic 62 mmHg Weight 255.00 lb with shoes 01/31/2016 BP Systolic 118 mmHg BP Diastolic 58 mmHg Height 74 inches 6'2" with shoes Weight 268.00 lb with shoes BMI (Body Mass Index) 34.4 kg/m2 08/16/2015 BP Systolic 130 mmHg BP Diastolic 70 mmHg 08/01/2015 BP Systolic 118 mmHg BP Diastolic 64 mmHg Height 74 inches 6'2" Weight 270.00 lb BMI (Body Mass Index) 34.7 kg/m2 01/30/2015 BP Systolic 116 mmHg BP Diastolic 54 mmHg Height 74 inches 6'2" shoes on Weight 269.00 lb Shoes on BMI (Body Mass Index) 34.5 kg/m2 10/10/2014 BP Systolic 134 mmHg BP Diastolic 60 mmHg Weight 272.00 lb shoes on 07/06/2014 BP Systolic 130 mmHg BP Diastolic 60 mmHg Height 74 inches shoes on Weight 268.00 lb shoes on BMI (Body Mass Index) 34.4 kg/m2 05/11/2014 BP Systolic 132 mmHg BP Diastolic 58 mmHg Weight 262.00 lb shoes on 02/09/2014 BP Systolic 132 mmHg BP Diastolic 60 mmHg Heart Rate 60 /min Weight 259.00 lb 12/27/2013 BP Systolic 98 mmHg BP Diastolic 60 mmHg Heart Rate 61 /min O2 % BldC Oximetry 98 % Height 74 inches 6'2" Weight 254.00 lb BMI (Body Mass Index) 32.6 kg/m2 09/13/2013 BP Systolic 110 mmHg BP Diastolic 52 mmHg Weight 245.00 lb 08/04/2013 BP Systolic 118 mmHg BP Diastolic 56 mmHg Weight 248.00 lb 07/12/2013 BP Systolic 138 mmHg BP Diastolic 70 mmHg Heart Rate 66 /min Weight 246.00 lb 05/19/2013 BP Systolic 120 mmHg BP Diastolic 58 mmHg Heart Rate 50 /min Weight 234.00 lb 05/05/2013 BP Systolic 108 mmHg BP Diastolic 53 mmHg Heart Rate 40 /min O2 % BldC Oximetry 9798 % Height 74 inches 6'2"with shoes Weight 235.00 lb BMI (Body Mass Index) 30.2 kg/m2 Results Test Date Test Result H/L Range Note Basic Metabolic Panel 09/13/2017 Glucose 151 mg/dL High 74-106 1 BUN 42 mg/dL High 7-18 1 Creatinine 1.8 mg/dL High 0.6-1.3 1 Glom Filtration Rate, Estimate 39 mL/min >60 1 If 47 mL/min >60 1, 2 BUN/Creat 23.3 ratio 1 Sodium 133 mmol/L Low 136-145 1 Potassium 4.5 mmol/L 3.5-5.1 1 Chloride 102 mmol/L 98-107 1 Carbon Dioxide 21 mmol/L 21-32 1 Anion Gap 10 mEq/L 8-16 1 Calcium 8.6 mg/dL 8.5-10.1 1 CBS W/Automated Diff 09/13/2017 White Blood Count 12.6 K/uL High 3.4-10.5 1 Red Blood Count 4.09 M/uL Low 4.20-5.80 1 Hemoglobin 12.9 gm/dL 12.8-17.0 1 Hematocrit 36.7 % Low 38.0-48.0 1 Mean Cell Volume 89.7 fl 80.0-96.0 1 Mean Corpuscular HGB 31.5 pg 27.0-33.0 1 Mean Corpuscular HGB Conc 35.1 g/dL 31.7-36.0 1 Platelet Count 184 K/uL 155-360 1 Red Cell Distri Width SD 51.0 fl 36-51 1 Red Cell Distri Width %CV 15.8 % 11.6-15.8 1 Mean Platelet Volume 9.3 fL 6.6-10.6 1 Neut% 95.1 % High 33.0-73.0 1 Lymph % 1.4 % Low 20.0-42.0 1 Zavala % 3.3 % 0.0-10.0 1 Eo% 0.2 % 0.0-6.6 1 Bas% 0.0 % 0.0-1.1 1 Neut# 12.00 K/uL High 1.8-7.0 1 Lymph # 0.18 K/uL Low 1.0-4.0 1 Zavala # 0.42 K/uL 0.0-0.8 1 Eos # 0.02 K/uL 0.0-0.5 1 Baso # 0.00 K/uL 0.0-0.1 1 Slide Review 09/13/2017 Slide Review (SEE NOTE) 1, 3 Laboratory test finding 09/13/2017 Vancomycin,Trough 14.2 ug/mL Low 15.0- 20.0 1, 4 CBS W/Automated Diff 09/12/2017 White Blood Count 6.5 K/uL 3.4-10.5 1 Red Blood Count 3.90 M/uL Low 4.20-5.80 1 Hemoglobin 12.4 gm/dL Low 12.8-17.0 1 Hematocrit 35.4 % Low 38.0-48.0 1 Mean Cell Volume 90.8 fl 80.0-96.0 1 Mean Corpuscular HGB 31.8 pg 27.0-33.0 1 Mean Corpuscular HGB Conc 35.0 g/dL 31.7-36.0 1 Platelet Count 176 K/uL 150-400 1 Red Cell Distri Width SD 51.5 fl High 36-51 1 Red Cell Distri Width %CV 15.9 % High 11.6-15.8 1 Mean Platelet Volume 9.7 fL 6.6-10.6 1 Neut% 95.2 % High 33.0-73.0 1 Lymph % 2.3 % Low 20.0-42.0 1 Zavala % 2.3 % 0.0-10.0 1 Eo% 0.2 % 0.0-6.6 1 Bas% 0.0 % 0.0-1.1 1 Neut# 6.16 K/uL 1.8-7.0 1 Lymph # 0.15 K/uL Low 1.0-4.0 1 Zavala # 0.15 K/uL 0.0-0.8 1 Eos # 0.01 K/uL 0.0-0.5 1 Baso # 0.00 K/uL 0.0-0.1 1 Basic Metabolic Panel 09/12/2017 Glucose 190 mg/dL High 74-106 1 BUN 35 mg/dL High 7-18 1 Creatinine 1.9 mg/dL High 0.6-1.3 1 Glom Filtration Rate, Estimate 37 mL/min >60 1 If 45 mL/min >60 1, 5 BUN/Creat 18.4 ratio 1 Sodium 135 mmol/L Low 136-145 1 Potassium 4.7 mmol/L 3.5-5.1 1 Chloride 104 mmol/L 98-107 1 Carbon Dioxide 21 mmol/L 21-32 1 Anion Gap 10 mEq/L 8-16 1 Calcium 8.6 mg/dL 8.5-10.1 1 Respiratory Culture W/Gram St 09/12/2017 Gram Stain <10 SQUAMOUS EPI 1, 6 <SEE NOTE> Gram Stain <25 WBC/LPF 1 Gram Stain RARE GRAM POSITI <SEE NOTE> 1, 7 Gram Stain FEW GRAM POS KYMBERLY <SEE NOTE> 1, 8 Respiratory Culture RESPIRATORY PETERSON <SEE NOTE> 1, 9 Laboratory test 09/12/2017 Troponin-I < 0.015 ng/mL 1, 10 finding Laboratory test 09/11/2017 Troponin-I 0.016 ng/mL 1, 11 finding Laboratory test 09/11/2017 Legionella Urinary Negative Negative 1, 12 finding Antigen CBS W/Automated Diff 09/11/2017 White Blood Count 5.7 K/uL 3.4-10.5 13 Red Blood Count 3.97 M/uL Low 4.20-5.80 13 Hemoglobin 12.5 gm/dL Low 12.8-17.0 13 Hematocrit 36.3 % Low 38.0-48.0 13 Mean Cell Volume 91.4 fl 80.0-96.0 13 Mean Corpuscular HGB 31.5 pg 27.0-33.0 13 Mean Corpuscular HGB Conc 34.4 g/dL 31.7-36.0 13 Platelet Count 167 K/uL 155-360 13 Red Cell Distri Width SD 52.1 fl High 36-51 13 Red Cell Distri Width %CV 15.9 % High 11.6-15.8 13 Mean Platelet Volume 9.0 fL 6.6-10.6 13 Neut% 75.0 % High 33.0-73.0 13 Lymph % 5.4 % Low 20.0-42.0 13 Zavala % 10.5 % High 0.0-10.0 13 Eo% 8.6 % High 0.0-6.6 13 Bas% 0.5 % 0.0-1.1 13 Neut# 4.30 K/uL 1.8-7.0 13 Lymph # 0.31 K/uL Low 1.0-4.0 13 Zavala # 0.60 K/uL 0.0-0.8 13 Eos # 0.49 K/uL 0.0-0.5 13 Baso # 0.03 K/uL 0.0-0.1 13 Laboratory test 09/11/2017 NT-proBNP 462.0 pg/mL High <450 13 finding Laboratory test 09/07/2017 TSH (Thyroid Stim 7.97 mcIU/mL High 0.34-5.60 finding Horm) T3 Free 2.50 pg/mL 2.5-3.9 Free T4 (Free Thyroxine) 0.82 ng/dL 0.61-1.12 Laboratory test finding 08/04/2017 B-Type Natriuretic 551 pg/mL High 14 Peptide BNP Basic Metabolic Panel 08/04/2017 Sodium 135 mmol/L 133-145 Potassium 3.9 mmol/L 3.5-5.0 Chloride 99 mmol/L Low 101-111 Co2 Carbon Dioxide 31 mmol/L 22-32 Anion Gap 5 mmol/L 2-11 Glucose 63 mg/dL Low 70-100 Blood Urea Nitrogen 30 mg/dL High 6-24 Creatinine 1.31 mg/dL High 0.67-1.17 BUN/Creatinine Ratio 22.9 High 8-20 Calcium 8.8 mg/dL 8.6-10.3 Egfr Non- 53.2 >60 Egfr 68.4 >60 15 Continuous Oximetry 07/31/2017 Oximetry 93 % 93-98 16 Fio2 32 21-100 16 O2l/Min 3 L/min 16 Oximetry Delivery N/C 16 Heart Rate 70 BPM 16 Patient Status AMBULATING 16 Continuous Oximetry 07/31/2017 Oximetry 90 % Low 93-98 16 Fio2 28 21-100 16 O2l/Min 2 L/min 16 Oximetry Delivery N/C 16 Heart Rate 79 BPM 16 Patient Status AMBULATING 16 Continuous Oximetry 07/31/2017 Oximetry 87 % Low 93-98 16 Fio2 21 21-100 16 O2l/Min 0 L/min 16 Heart Rate 83 BPM 16 Patient Status AMBULATING 16 Continuous Oximetry 07/31/2017 Oximetry 94 % 93-98 16 Fio2 21 21-100 16 O2l/Min 0 L/min 16 Heart Rate 68 BPM 16 Patient Status RESTING 16 Continuous Oximetry 07/31/2017 Oximetry 96 % 93-98 16 Fio2 28 21-100 16 O2l/Min 2 L/min 16 Oximetry Delivery N/C 16 Heart Rate 63 BPM 16 Patient Status RESTING 16 Patient Position SITTING UP IN BE <SEE NOTE> 16, 17 Electrolyte Panel 07/31/2017 Sodium 137 mmol/L 136-145 16 Potassium 3.8 mmol/L 3.5-5.1 16 Chloride 100 mmol/L 98-107 16 Carbon Dioxide 28 mmol/L 21-32 16 Anion Gap 9 mEq/L 8-16 16 CBS W/Automated Diff 07/30/2017 White Blood Count 4.8 K/uL 3.4-10.5 16 Red Blood Count 4.36 M/uL 4.20-5.80 16 Hemoglobin 13.3 gm/dL 12.8-17.0 16 Hematocrit 39.3 % 38.0-48.0 16 Mean Cell Volume 90.1 fl 80.0-96.0 16 Mean Corpuscular HGB 30.5 pg 27.0-33.0 16 Mean Corpuscular HGB Conc 33.8 g/dL 31.7-36.0 16 Platelet Count 139 K/uL Low 150-400 16 Red Cell Distri Width SD 51.1 fl High 36-51 16 Red Cell Distri Width %CV 15.9 % High 11.6-15.8 16 Mean Platelet Volume 10.2 fL 6.6-10.6 16 Neut% 93.9 % High 33.0-73.0 16 Lymph % 4.8 % Low 20.0-42.0 16 Zavala % 1.1 % 0.0-10.0 16 Eo% 0.2 % 0.0-6.6 16 Bas% 0.0 % 0.0-1.1 16 Neut# 4.46 K/uL 1.8-7.0 16 Lymph # 0.23 K/uL Low 1.0-4.0 16 Zavala # 0.05 K/uL 0.0-0.8 16 Eos # 0.01 K/uL 0.0-0.5 16 Baso # 0.00 K/uL 0.0-0.1 16 Ua RFX Micro & Culture II 07/30/2017 Urine Color YELLOW Yellow 16 Urine Clarity CLEAR Clear 16 Urine Glucose - Dipstick NEGATIVE mg/dL Negative 16 Urine Bilirubin - Dipstick NEGATIVE Negative 16 Urine Ketone NEGATIVE mg/dL Negative 16 Urine Specific Franklin <=1.005 Low 1.010-1.030 16 Urine Blood NEGATIVE Negative 16 Urine PH 5.0 Low 6.5-7.5 16 Urine Protein - Dipstick NEGATIVE mg/dL Negative 16 Urine Urobilinogen - Dipstick 0.2 E.U./dL 0.2-1.0 16 Urine Nitrite - Dipstick NEGATIVE Negative 16 Urine Leuk Esterase NEGATIVE Negative 16 Source: URINE, CLEAN CAT <SEE 16, 18 NOTE> Laboratory test 07/30/2017 Legionella Urinary Negative Negative 16, 19 finding Antigen Laboratory test 07/29/2017 NT-proBNP 511.0 pg/mL High <450 20 finding Blood Culture 07/29/2017 Blood Culture NO GROWTH: FINAL Aerobic <SEE NOTE> Blood Culture Anaerobic NO GROWTH: FINAL <SEE NOTE> , Blood Culture 07/29/2017 Blood Culture Aerobic CALLED CALLED <SEE NOTE> Quantity FROM BROTH Blood Culture Anaerobic NO GROWTH: FINAL <SEE NOTE> Arterial Blood Gas 07/29/2017 Arterial Blood Gas pH 7.43 7.35-7.45 21 Arterial Blood Gas Pco2 32 mmHg Low 35-45 21 Arterial Blood Gas Po2 73 mmHg Low 80-105 21 ABG Hco3 21 mEq/L Low 22-26 21 ABG Base Excess -3 mEq/L Low -2-2 21 ABG O2 Saturation 95 % 90-99 21 Allens Test Performed? YES 21 Arterial Blood Gas Type OXYGEN 21 Arterial Blood Gas Fio2 30 % 20-101 21 Arterial Blood Gas L/M 2.5 L/MIN 0-20 21 Arterial Blood Gas Del. N/C 21 Arterial Blood Gas Site L.RAD.ART. 21 Legionella Culture 07/29/2017 Legionella Culture REFERENCE LAB#: 27, 28 Respiratory Culture 07/29/2017 Gram Stain >10 SQUAMOUS EPI 29, 30 W/Gram St <SEE NOTE> Gram Stain <25 WBC/LPF 29 Gram Stain FEW GRAM POSITIV <SEE NOTE> 29, 31 Gram Stain FEW GRAM POS KYMBERLY <SEE NOTE> 29, 32 Gram Stain FEW GRAM NEGATIV <SEE NOTE> 29, 33 Respiratory Culture RESPIRATORY PETERSON <SEE NOTE> 29, 34 CBC Auto Diff 07/15/2017 White Blood Count 6.9 10^3/uL 3.5-10.8 Red Blood Count 4.52 10^6/uL 4.0-5.4 Hemoglobin 13.6 g/dL Low 14.0-18.0 Hematocrit 40 % Low 42-52 Mean Corpuscular Volume 89 fL 80-94 Mean Corpuscular Hemoglobin 30 pg 27-31 Mean Corpuscular HGB Conc 34 g/dL 31-36 Red Cell Distribution Width 16 % High 10.5-15 Platelet Count 138 10^3/uL Low 150-450 Mean Platelet Volume 9 um3 7.4-10.4 Abs Neutrophils 5.0 10^3/uL 1.5-7.7 Abs Lymphocytes 0.5 10^3/uL Low 1.0-4.8 Abs Monocytes 0.8 10^3/uL 0-0.8 Abs Eosinophils 0.5 10^3/uL 0-0.6 Abs Basophils 0 10^3/uL 0-0.2 Abs Nucleated RBC 0 10^3/uL Granulocyte % 73.1 % 38-83 Lymphocyte % 7.7 % Low 25-47 Monocyte % 11.9 % High 1-9 Eosinophil % 7.0 % High 0-6 Basophil % 0.3 % 0-2 Nucleated Red Blood Cells % 0 Comp Metabolic Panel 07/15/2017 Sodium 139 mmol/L 133-145 Potassium 3.8 mmol/L 3.5-5.0 Chloride 106 mmol/L 101-111 Co2 Carbon Dioxide 28 mmol/L 22-32 Anion Gap 5 mmol/L 2-11 Glucose 77 mg/dL 70-100 Blood Urea Nitrogen 25 mg/dL High 6-24 Creatinine 1.35 mg/dL High 0.67-1.17 BUN/Creatinine Ratio 18.5 8-20 Calcium 8.7 mg/dL 8.6-10.3 Total Protein 5.4 g/dL Low 6.4-8.9 Albumin 3.2 g/dL 3.2-5.2 Globulin 2.2 g/dL 2-4 Albumin/Globulin Ratio 1.5 1-3 Total Bilirubin 2.00 mg/dL High 0.2-1.0 Alkaline Phosphatase 51 U/L 34-104 Alt 32 U/L 7-52 Ast 37 U/L 13-39 Egfr Non- 51.4 >60 Egfr 66.1 >60 35 Laboratory test finding 07/15/2017 Alpha 1 Antitrypsin A1a 120 mg/dL 100 - 190 36 TSH (Thyroid Stim Horm) 14.87 mcIU/mL High 0.34-5.60 Vitamin B12 758 pg/mL 180-914 37 Celiac Hla 07/15/2017 [id number] SEE BELOW 38 [id number] SEE BELOW 39 Celiac Gene Pairs Present? Yes Celiac Gene Interpretation See Comment 40 Celiac Panel 07/15/2017 Tissue Transglutaminase IgA Ab <1.2 U/mL 41 Immunoglobulin A 209 mg/dL 61 - 356 Celiac Interpretation See Comment 42 Laboratory test finding 07/15/2017 Magnesium 2.1 mg/dL 1.9-2.7 Laboratory test finding 06/17/2017 Vitamin B12 622 pg/mL 180-914 43 Vitamin D Total 25(Oh) 35.4 ng/mL 30-50 TSH (Thyroid Stim Horm) 8.34 mcIU/mL High 0.34-5.60 Comp Metabolic Panel 06/17/2017 Sodium 136 mmol/L 133-145 Potassium 4.4 mmol/L 3.5-5.0 Chloride 107 mmol/L 101-111 Co2 Carbon Dioxide 25 mmol/L 22-32 Anion Gap 4 mmol/L 2-11 Glucose 115 mg/dL High 70-100 Blood Urea Nitrogen 15 mg/dL 6-24 Creatinine 1.14 mg/dL 0.67-1.17 BUN/Creatinine Ratio 13.2 8-20 Calcium 8.9 mg/dL 8.6-10.3 Total Protein 5.8 g/dL Low 6.4-8.9 Albumin 3.5 g/dL 3.2-5.2 Globulin 2.3 g/dL 2-4 Albumin/Globulin Ratio 1.5 1-3 Total Bilirubin 1.50 mg/dL High 0.2-1.0 Alkaline Phosphatase 53 U/L 34-104 Alt 15 U/L 7-52 Ast 25 U/L 13-39 Egfr Non- 62.5 >60 Egfr 80.3 >60 44 CBC Auto Diff 06/17/2017 White Blood Count 4.6 10^3/uL 3.5-10.8 Red Blood Count 4.32 10^6/uL 4.0-5.4 Hemoglobin 13.0 g/dL Low 14.0-18.0 Hematocrit 38 % Low 42-52 Mean Corpuscular Volume 89 fL 80-94 Mean Corpuscular Hemoglobin 30 pg 27-31 Mean Corpuscular HGB Conc 34 g/dL 31-36 Red Cell Distribution Width 16 % High 10.5-15 Platelet Count 127 10^3/uL Low 150-450 Mean Platelet Volume 9 um3 7.4-10.4 Abs Neutrophils 3.5 10^3/uL 1.5-7.7 Abs Lymphocytes 0.4 10^3/uL Low 1.0-4.8 Abs Monocytes 0.5 10^3/uL 0-0.8 Abs Eosinophils 0.3 10^3/uL 0-0.6 Abs Basophils 0 10^3/uL 0-0.2 Abs Nucleated RBC 0 10^3/uL Granulocyte % 74.6 % 38-83 Lymphocyte % 8.8 % Low 25-47 Monocyte % 9.7 % High 1-9 Eosinophil % 6.1 % High 0-6 Basophil % 0.8 % 0-2 Nucleated Red Blood Cells % 0 Basic Metabolic Panel 11/10/2016 Sodium 135 mmol/L 133-145 Potassium 4.4 mmol/L 3.5-5.0 Chloride 105 mmol/L 101-111 Co2 Carbon Dioxide 26 mmol/L 22-32 Anion Gap 4 mmol/L 2-11 Glucose 83 mg/dL 70-100 Blood Urea Nitrogen 12 mg/dL 6-24 Creatinine 1.08 mg/dL 0.67-1.17 BUN/Creatinine Ratio 11.1 8-20 Calcium 8.9 mg/dL 8.6-10.3 Egfr Non- 66.7 >60 Egfr 85.7 >60 45 Laboratory test finding 11/10/2016 B-Type Natriuretic 260 pg/mL High 46 Peptide BNP Basic Metabolic Panel 10/09/2016 Sodium 138 mmol/L 133-145 Potassium 4.1 mmol/L 3.5-5.0 Chloride 110 mmol/L 101-111 Co2 Carbon Dioxide 26 mmol/L 22-32 Anion Gap 2 mmol/L 2-11 Glucose 102 mg/dL High 70-100 Blood Urea Nitrogen 15 mg/dL 6-24 Creatinine 1.23 mg/dL High 0.67-1.17 BUN/Creatinine Ratio 12.2 8-20 Calcium 9.5 mg/dL 8.6-10.3 Egfr Non- 57.4 >60 Egfr 73.8 >60 47 Urinalysis Profile 10/09/2016 Urine Color Yellow Urine Appearance Clear Urine Specific [place] 1.014 1.010-1.030 Urine pH 5.0 5-9 Urine Urobilinogen Negative Negative Urine Ketones Negative Negative Urine Protein Negative Negative Urine Leukocytes Negative Negative Urine Blood Negative Negative Urine Nitrite Negative Negative Urine Bilirubin Negative Negative Urine Glucose Negative Negative Inr/Protime 10/09/2016 Inr 1.17 High 0.89-1.11 Laboratory [...] Blood Type A Positive Antibody Screen NEGATIVE Xray 03/24/2016 X-Ray, Shoulder, no acute changes Left, Min. Of 2 Views Laboratory test 08/16/2015 Rheumatoid Factor 16.6 IU/mL High 0.0-15.0 finding Screen Vitamin B1 (Thiamine),WB 216.0 nmol/L High 66.5-200.0 Antinuclear Antibodies, Ifa Negative . 48 Sjogren's Antibodies 08/16/2015 Sjogrens Antibodies (Ssa) <0.2 AI 0.0- 0.9 Sjogrens Antibodies (SSB) <0.2 AI 0.0-0.9 Lyme AB/Western Blot 08/16/2015 Lyme AB/Total < 0.91 ISR 0.00-0.90 49 Reflex Immunoglobulins Lyme Disease Antibody,QT,Igm <0.80 index 0.00-0.79 50 Laboratory test finding 08/16/2015 Lyme IgG + IgM By Western Blot See Note 51 Sedimentation Rate 4 mm/hr 0-20 Hepatitis C Antibody 08/16/2015 Hepatitis C Antibody Nonreactive Nonreactive Signal/Cutoff ratio < 0.02 <0.80 52 Laboratory test finding 08/16/2015 Antibody Detection See Note 53 Laboratory test finding 08/06/2015 T3 Free 2.50 pg/mL 2.5-3.9 Free T4 (Free Thyroxine) 0.83 ng/mL 0.61-1.12 CBC Auto Diff 08/01/2015 White Blood Count 5.6 10^3/uL 4.8-10.8 Red Blood Count 4.96 10^6/uL 4.0-5.4 Hemoglobin 15.8 g/dL 14.0-18.0 Hematocrit 47 % 42-52 Mean Corpuscular Volume 95 fL High 80-94 Mean Corpuscular Hemoglobin 32 pg High 27-31 Mean Corpuscular HGB Conc 33 g/dL 31-36 Red Cell Distribution Width 15 % 10.5-15 Platelet Count 147 10^3/uL Low 150-450 Mean Platelet Volume 9 um3 7.4-10.4 Abs Neutrophils 4.4 10^3/uL 1.5-7.7 Abs Lymphocytes 0.5 10^3/uL Low 1.0-4.8 Abs Monocytes 0.5 10^3/uL 0-0.8 Abs Eosinophils 0.1 10^3/uL 0-0.6 Abs Basophils 0.1 10^3/uL 0-0.2 Abs Nucleated RBC 0.02 10^3/uL Granulocyte % 78.8 % 38-83 Lymphocyte % 8.9 % Low 25-47 Monocyte % 8.2 % 1-9 Eosinophil % 2.0 % 0-6 Basophil % 2.1 % High 0-2 Nucleated Red Blood Cells % 0.4 Comp Metabolic Panel 08/01/2015 Sodium 136 mmol/L 133-145 Potassium 4.3 mmol/L 3.5-5.0 Chloride 106 mmol/L 101-111 Co2 Carbon Dioxide 26 mmol/L 22-32 Anion Gap 4 mmol/L 2-11 Glucose 91 mg/dL 70-100 Blood Urea Nitrogen 14 mg/dL 6-24 Creatinine 1.10 mg/dL 0.67-1.17 BUN/Creatinine Ratio 12.7 8-20 Calcium 9.0 mg/dL 8.6-10.3 Total Protein 6.2 g/dL Low 6.4-8.9 Albumin 3.8 g/dL 3.2-5.2 Globulin 2.4 g/dL 2-4 Albumin/Globulin Ratio 1.6 1-3 Total Bilirubin 2.30 mg/dL High 0.2-1.0 Alkaline Phosphatase 66 U/L 34-104 Alt 29 U/L 7-52 Ast 39 U/L 13-39 Egfr Non- 65.4 >60 Egfr 84.2 >60 54 Laboratory test finding 08/01/2015 Vitamin B12 870 pg/mL 180-914 55 Vitamin D Total 25(Oh) 46.3 ng/mL 30-50 TSH (Thyroid Stim Horm) 5.96 ?IU/mL High 0.34-5.60 Protein Electrophoresis 08/01/2015 Total Protein(Pep) 6.4 g/dL 6.3 - 7.9 Albumin 3.1 g/dL 3.4-4.7 Alpha-1 Globulin 0.2 g/dL 0.1-0.3 Alpha-2 Globulin 0.9 g/dL 0.6-1.0 Beta Globulin 0.8 g/dL 0.7-1.2 Gamma Globulin 1.3 g/dL 0.6-1.6 Albumin/Globulin Ratio 0.95 Impression See Comment 56 Basic Metabolic Panel 07/05/2015 Sodium 136 mmol/L 133-145 Potassium 4.1 mmol/L 3.5-5.0 Chloride 104 mmol/L 101-111 Co2 Carbon Dioxide 26 mmol/L 22-32 Anion Gap 6 mmol/L 2-11 Glucose 82 mg/dL 70-100 Blood Urea Nitrogen 15 mg/dL 6-24 Creatinine 1.20 mg/dL High 0.67-1.17 BUN/Creatinine Ratio 12.5 8-20 Calcium 9.3 mg/dL 8.6-10.3 Egfr Non- 59.2 >60 Egfr 76.1 >60 57 Laboratory test finding 04/11/2015 PSA Diagnostic 0.166 ng/mL 0-4.000 58 Lipid Profile (Trig/Chol/HDL) 04/11/2015 Triglycerides 55 mg/dL 59 Cholesterol 146 mg/dL 60 HDL Cholesterol 37.2 mg/dL 61 LDL Cholesterol 98 mg/dL 62 Laboratory test finding 04/11/2015 Alt (SGPT) 24 U/L 7-52 Ast (Sgot) 30 U/L 13-39 Acid Fast Smear 11/14/2014 Acid Fast Stain - (SEE NOTE) 63, 64 Direct Direct Body Fluid C&S 11/14/2014 Body Fluid Cult (SEE NOTE) 63, 65 Gram Stain Laboratory test 11/14/2014 Fungal Cult - Other (SEE NOTE) 63, 66 finding Sources Fungal Cult Other 11/14/2014 Fungal Cult - Other (SEE NOTE) 67, 68 Sources Sources Laboratory test 11/14/2014 Mycobacterial Culture See Comment 69 finding Laboratory test 07/18/2014 Cytology Nongyn RUN DATE: 70 finding 07/19/ <SEE NOTE> Sputum Culture 07/18/2014 Sputum Culture Gram (SEE NOTE) 71 & Sensitiv Stain Sputum Culture 07/16/2014 Sputum Culture Gram (SEE NOTE) 72 & Sensitiv Stain Laboratory test 07/16/2014 Cytology Nongyn RUN DATE: 73 finding 07/19/ <SEE NOTE> Laboratory test 04/03/2014 Inr 1.24 High 0.85-1.0 finding 6 Ammonia 105 mol/L High 16-53 Liver Function Panel 04/03/2014 Total Protein 6.3 g/dL Low 6.4-8.9 Albumin 3.5 g/dL 3.2-5.2 Globulin 2.8 g/dL 2-4 Albumin/Globulin Ratio 1.3 1-3 Total Bilirubin 1.50 mg/dL High 0.2-1.0 Direct Bilirubin 0.40 mg/dL High 0.03-0.18 Indirect Bilirubin 1.1 mg/dL High 0.3-1.0 Alkaline Phosphatase 78 U/L 34-104 Alt 27 U/L 7-52 Ast 36 U/L 13-39 Laboratory test finding 03/09/2014 Inr 1.25 High 0.85-1.06 Basic Metabolic Panel 02/06/2014 Sodium 138 mmol/L 133-145 Potassium 4.4 mmol/L 3.7-5.6 Chloride 108 mmol/L 101-111 Co2 Carbon Dioxide 24 mmol/L 22-32 Anion Gap 6 mmol/L 2-11 Glucose 120 mg/dL High 70-100 Blood Urea Nitrogen 12 mg/dL 6-24 Creatinine 1.04 mg/dL 0.67-1.17 BUN/Creatinine Ratio 11.5 8-20 Calcium 8.3 mg/dL Low 8.6-10.3 Egfr Non- 70.2 >60 Egfr 90.3 >60 74 CBC Auto Diff 01/11/2014 White Blood Count 5.6 10^3/uL 4.8-10.8 Red Blood Count 4.93 10^6/uL 4.0-5.4 Hemoglobin 15.2 g/dL 14.0-18.0 Hematocrit 44 % 42-52 Mean Corpuscular Volume 88 fL 80-94 Mean Corpuscular Hemoglobin 31 pg 27-31 Mean Corpuscular HGB Conc 35 g/dL 31-36 Red Cell Distribution Width 15 % 10.5-15 Platelet Count 124 10^3/uL Low 150-450 Mean Platelet Volume 8 um3 7.4-10.4 Abs Neutrophils 3.8 10^3/uL 1.5-7.7 Abs Lymphocytes 0.9 10^3/uL Low 1.0-4.8 Abs Monocytes 0.6 10^3/uL 0-0.8 Abs Eosinophils 0.2 10^3/uL 0-0.6 Abs Basophils 0.1 10^3/uL 0-0.2 Abs Nucleated RBC 0.01 10^3/uL Granulocyte % 67.8 % 38-83 Lymphocyte % 16.5 % Low 25-47 Monocyte % 10.5 % High 1-9 Eosinophil % 4.1 % 0-6 Basophil % 1.1 % 0-2 Nucleated Red Blood Cells % 0.1 Laboratory test 01/11/2014 D Dimer Quantitative 341 ng/mL High Less Than 230 75 finding CBC With Manual Diff 12/27/2013 White Blood Count 5.4 10^3/uL 4.8-10.8 Red Blood Count 4.89 10^6/uL 4.0-5.4 Hemoglobin 15.1 g/dL 14.0-18.0 Hematocrit 44 % 42-52 Mean Corpuscular Volume 90 fL 80-94 Mean Corpuscular Hemoglobin 31 pg 27-31 Mean Corpuscular HGB Conc 35 g/dL 31-36 Red Cell Distribution Width 15 % 10.5-15 Platelet Count 130 10^3/uL Low 150-450 Mean Platelet Volume 9 um3 7.4-10.4 Abs Neutrophils 3.7 10^3/uL 1.5-7.7 Abs Lymphocytes 0.9 10^3/uL Low 1.0-4.8 Abs Monocytes 0.6 10^3/uL 0-0.8 Abs Eosinophils 0.2 10^3/uL 0-0.6 Abs Basophils 0 10^3/uL 0-0.2 Abs Nucleated RBC 0.01 10^3/uL Neutrophil % 72 % 38-83 Lymphocytes % 14 % Low 25-47 Monocytes % 9 % 0-13 Eosinophils % 5 % 0-6 RBC Morphology Normal Normal Comp Metabolic Panel 12/27/2013 Sodium 140 mmol/L 133-145 Potassium 4.4 mmol/L 3.7-5.6 Chloride 109 mmol/L 101-111 Co2 Carbon Dioxide 27 mmol/L 22-32 Anion Gap 4 mmol/L 2-11 Glucose 79 mg/dL 70-100 Blood Urea Nitrogen 14 mg/dL 6-24 Creatinine 1.07 mg/dL 0.67-1.17 BUN/Creatinine Ratio 13.1 8-20 Calcium 8.9 mg/dL 8.6-10.3 Total Protein 6.2 g/dL Low 6.4-8.9 Albumin 3.5 g/dL 3.2-5.2 Globulin 2.7 g/dL 2-4 Albumin/Globulin Ratio 1.3 1-3 Total Bilirubin 1.70 mg/dL High 0.2-1.0 Alkaline Phosphatase 75 U/L 34-104 Alt 22 U/L 7-52 Ast 30 U/L 13-39 Egfr Non- 67.9 >60 Egfr 87.4 >60 76 Laboratory test finding 12/27/2013 Troponin I 0.00 ng/mL <0.03 77 TSH (Thyroid Stimulating Horm) 2.98 IU/mL 0.34-5.60 78 Magnesium 1.9 mg/dL 1.9-2.7 79 Lipid Profile (Trig/Chol/HDL) 12/15/2013 Triglycerides 81 mg/dL 80 Cholesterol 125 mg/dL 81 HDL Cholesterol 29.2 mg/dL 82 LDL Cholesterol 80 mg/dL 83 Comprehensive Metabolic Panel 11/07/2013 Glucose 90 mg/dL 76-115 BUN 16 mg/dL 5-23 Creatinine 1.1 mg/dL 0.5-1.4 Glom Filtration Rate, Estimate >60 mL/min >60 If >60 mL/min >60 84 BUN/Creat 14.5 ratio Sodium 143 mmol/L 136-145 Potassium 4.4 mmol/L 3.5-5.1 Chloride 112 mmol/L High 98-107 Carbon Dioxide 24 mEq/L 18-29 Anion Gap 11 mEq/L 8-16 Calcium 8.8 mg/dL 8.5-10.1 Total Protein 6.9 g/dL 6.3-8.0 Albumin 3.4 g/dL Low 3.5-5.0 Globulin 3.5 g/dL 1.9-4.3 Alb/Glob 1.0 ratio Bilirubin,Total 1.8 mg/dL High 0.2-1.2 Sgot/Ast 34 U/L 16-40 SGPT/Alt 34 U/L 30-65 Alkaline Phosphatase 95 U/L 50-136 Laboratory test finding 11/07/2013 Ammonia 51 umol/L <32 85 CBS W/Automated Diff 11/07/2013 White Blood Count 5.1 K/uL 3.4-10.5 Red Blood Count 4.69 M/uL 4.20-5.80 Hemoglobin 14.2 gm/dL 12.8-17.0 Hematocrit 42.3 % 38.0-48.0 Mean Cell Volume 90.2 fl 80.0-96.0 Mean Corpuscular HGB 30.3 pg 27.0-33.0 Mean Corpuscular HGB Conc 33.6 g/dL 31.7-36.0 Platelet Count 128 K/uL Low 150-400 Red Cell Distri Width SD 47.0 fl 36-51 Red Cell Distri Width %CV 14.7 % 11.6-15.8 Mean Platelet Volume 11.2 fL High 6.6-10.6 Neut% 72.5 % 33.0-73.0 Lymph % 13.0 % Low 17.0-56.0 Z[place]ala % 10.0 % 0.0-10.0 Eo% 3.9 % 0.0-5.0 Bas% 0.6 % 0.1-1.0 Neut# 3.69 K/uL 1.8-7.0 Lymph # 0.66 K/uL Low 1.2-4.0 Z[place]ala # 0.51 K/uL 0.0-0.6 Eos # 0.20 K/uL 0.0-0.5 Baso # 0.03 K/uL Low 0.1-0.2 Laboratory test finding 08/04/2013 Ammonia 76 umol/L <32 Comprehensive Metabolic Panel 08/04/2013 Glucose 77 mg/dL 76-115 BUN 14 mg/dL 5-23 Creatinine 1.0 mg/dL 0.5-1.4 Glom Filtration Rate, Estimate >60 mL/min >60 If >60 mL/min >60 86 BUN/Creat 14.0 ratio Sodium 140 mmol/L 136-145 Potassium 4.5 mmol/L 3.5-5.1 Chloride 108 mmol/L High 98-107 Carbon Dioxide 24 mEq/L 18-29 Anion Gap 13 mEq/L 8-16 Calcium 9.0 mg/dL 8.5-10.1 Total Protein 6.6 g/dL 6.3-8.0 Albumin 3.2 g/dL Low 3.5-5.0 Globulin 3.4 g/dL 1.9-4.3 Alb/Glob 0.9 ratio Bilirubin,Total 1.6 mg/dL High 0.2-1.2 Sgot/Ast 35 U/L 16-40 SGPT/Alt 31 U/L 30-65 Alkaline Phosphatase 99 U/L 50-136 Laboratory test finding 08/04/2013 NT-proBNP 134.0 pg/mL <325.0 Laboratory test finding 07/13/2013 Ammonia 102 umol/L <32 CBC With Manual Diff 07/13/2013 White Blood Count 5.5 10^3/uL 4.8-10.8 87 Red Blood Count 4.39 10^6/uL 4.0-5.4 87 Hemoglobin 12.9 g/dL Low 14.0-18.0 87 Hematocrit 39 % Low 42-52 87 Mean Corpuscular Volume 90 fL 80-94 87 Mean Corpuscular Hemoglobin 29 pg 27-31 87 Mean Corpuscular HGB Conc 33 g/dL 31-36 87 Red Cell Distribution Width 17 % High 10.5-15 87 Platelet Count 133 10^3/uL Low 150-450 87 Mean Platelet Volume 9 um3 7.4-10.4 87 Abs Neutrophils 4.0 10^3/uL 1.5-7.7 87 Abs Lymphocytes 0.6 10^3/uL Low 1.0-4.8 87 Abs Monocytes 0.5 10^3/uL 0-0.8 87 Abs Eosinophils 0.3 10^3/uL 0-0.6 87 Abs Basophils 0 10^3/uL 0-0.2 87 Abs Nucleated RBC 0 10^3/uL 87 Neutrophil % 74 % 38-83 87 Lymphocytes % 11 % Low 25-47 87 Monocytes % 10 % 0-13 87 Eosinophils % 4 % 0-6 87 Reactive Lymph % 1 % 0-6 87 RBC Morphology Normal Normal 87 Laboratory test finding 07/13/2013 Ferritin 14 ng/mL Low 24-336 87, 88 Retic Count 07/13/2013 Retic Count 1.6 % High 0.5-1.5 87 Corrected Retic Count 1.4 % 0.5-1.5 87 Maturation Factor Retic 1.5 87 Retic Index 0.90 87 Mean Retic Volume 111.1 87 Immature Retic Fraction 0.43 87 RBC Retic Count 4.39 10^6/uL Low 4.6-6.2 87 Hematocrit for Retic CNT 39 % Low 42-52 87 Comp Metabolic Panel 07/13/2013 Sodium 139 mmol/L 133-145 87 Potassium 4.2 mmol/L 3.5-5.0 87 Chloride 108 mmol/L 101-111 87 Co2 Carbon Dioxide 25.0 mmol/L 22-32 87 Anion Gap 6.0 mmol/L 2-11 87 Glucose 79 mg/dL 70-100 87 Blood Urea Nitrogen 12 mg/dL 6-24 87 Creatinine 1.10 mg/dL 0.50-1.40 87 BUN/Creatinine Ratio 10.9 8-20 87 Calcium 8.9 mg/dL 8.1-9.9 87 Total Protein 5.5 g/dL Low 6.2-8.1 87 Albumin 3.1 g/dL Low 3.2-5.2 87 Globulin 2.4 g/dL 2-4 87 Albumin/Globulin Ratio 1.3 1-3 87 Total Bilirubin 2.2 mg/dL High 0.4-1.5 87 Alkaline Phosphatase 92 U/L 30-110 87 Alt 29 U/L 14-54 87 Ast 38 U/L 12-42 87 Egfr Non- 65.8 >60 87 Egfr 84.6 >60 87, 89 Laboratory test finding 07/13/2013 Afp Tumor Marker 2.5 ng/mL <6.0 87 , 90 B Type Natriuretic Peptide 370.0 pg/mL High 0-100 87 Carcinoembryonic Antigen 1.93 ng/mL 0-5.0 87, 91 Inr/Protime 07/13/2013 Inr 1.17 High 0.87-0.97 87 Laboratory test finding 07/13/2013 Vitamin D 39 pg/mL 18-64 87, 92 1,25-Dihydroxy Iron & Iron Binding 07/13/2013 Iron 134 g/dL 45-182 87 Capacity Unsaturated Iron Binding 227 g/dL 87 Total Iron Binding Capacity 361 g/dL 250-450 87 % Iron Saturation 37 % 15-55 87 Laboratory test 07/13/2013 TSH (Thyroid 4.43 miu/mL 0.34-5.60 87, 93 finding Stimulating Horm) PSA Screening 0.2 ng/mL 0-4.0 87, 94 CBC Auto Diff 05/06/2013 White Blood Count 4.9 10^3/uL 4.8-10.8 Red Blood Count 4.12 10^6/uL 4.0-5.4 Hemoglobin 12.2 g/dL Low 14.0-18.0 Hematocrit 37 % Low 42-52 Mean Corpuscular Volume 90 fL 80-94 Mean Corpuscular Hemoglobin 30 pg 27-31 Mean Corpuscular HGB Conc 33 g/dL 31-36 Red Cell Distribution Width 16 % High 10.5-15 Platelet Count 114 10^3/uL Low 150-450 Mean Platelet Volume 9 um3 7.4-10.4 Abs Neutrophils 3.6 10^3/uL 1.5-7.7 Abs Lymphocytes 0.5 10^3/uL Low 1.0-4.8 Abs Monocytes 0.6 10^3/uL 0-0.8 Abs Eosinophils 0.2 10^3/uL 0-0.6 Abs Basophils 0 10^3/uL 0-0.2 Abs Nucleated RBC 0 10^3/uL Granulocyte % 72.9 % 38-83 Lymphocyte % 10.6 % Low 25-47 Monocyte % 12.9 % High 1-9 Eosinophil % 3.1 % 0-6 Basophil % 0.5 % 0-2 Nucleated Red Blood Cells % 0 Iron & Iron Binding Capacity 05/06/2013 Iron 45 g/dL 45-182 Unsaturated Iron Binding 308 g/dL Total Iron Binding Capacity 353 g/dL 250-450 % Iron Saturation 13 % Low 15-55 Laboratory test finding 05/06/2013 B Type Natriuretic 550.0 pg/mL High 0- 100 95 Peptide Comp Metabolic Panel 05/06/2013 Sodium 138 mmol/L 133-145 Potassium 4.3 mmol/L 3.5-5.0 Chloride 107 mmol/L 101-111 Co2 Carbon Dioxide 28.0 mmol/L 22-32 Anion Gap 3.0 mmol/L 2-11 Glucose 85 mg/dL 70-100 Blood Urea Nitrogen 12 mg/dL 6-24 Creatinine 1.00 mg/dL 0.50-1.40 BUN/Creatinine Ratio 12.0 8-20 Calcium 8.8 mg/dL 8.1-9.9 Total Protein 5.6 g/dL Low 6.2-8.1 Albumin 3.0 g/dL Low 3.2-5.2 Globulin 2.6 g/dL 2-4 Albumin/Globulin Ratio 1.2 1-3 Total Bilirubin 1.6 mg/dL High 0.4-1.5 Alkaline Phosphatase 101 U/L 30-110 Alt 27 U/L 14-54 Ast 45 U/L High 12-42 Egfr Non- 73.7 >60 Egfr 94.7 >60 96 Laboratory test finding 05/06/2013 Vitamin B12 665 pg/mL 180-914 97 Ferritin 17 ng/mL Low 24-336 98 Folate 16.7 ng/mL High 2-16 99 Retic Count 05/06/2013 Retic Count 1.0 % 0.5-1.5 Corrected Retic Count 0.8 % 0.5-1.5 Maturation Factor Retic 1.5 Retic Index 0.50 Mean Retic Volume 114.4 Immature Retic Fraction 0.44 RBC Retic Count 4.12 10^6/uL Low 4.6-6.2 Hematocrit for Retic CNT 37 % Low 42-52 Ua Inhouse 05/05/2013 Ua Glucose - Ua Bilirubin - Ua Ketones - Ua Specific Franklin 1.025 Ua Blood - Ua PH 6.0 Ua Protein - Ua Urobilinogen - Ua Nitrite - Ua Leukocytes - Laboratory test finding 05/05/2013 Hemoglobin 12.6 1 COPD, CHF 2 Note: Persistent reduction for 3 months or more in an eGFR <60 mL/min/1.73 m2 defines CKD. Patients with eGFR values >/=60 mL/min/1.73 m2 may also have CKD if evidence of persistent proteinuria is present. The original MDRD equation for estimated GFR is not valid for patients less than 18 years of age. Additional information may be found at www.kdoqi.org. 3 Instrument flagged sample for slide review. Less than 10% Bands seen, no other immature WBC's seen. RBC morphology essentially normal. 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 Patients with eGFR values >/=60 mL/min/1.73 m2 may also have CKD if evidence of persistent proteinuria is present. The original MDRD equation for estimated GFR is not valid for patients less than 18 years of age. Additional information may be found at www.[email or web address]. 6 <10 SQUAMOUS EPITHELIAL CELLS/LPF 7 RARE GRAM POSITIVE COCCI 8 FEW GRAM POS BACILLI SUGGESTIVE OF DIPTHEROIDS 9 RESPIRATORY [place] 10 0.0 - 0.045 ng/mL: Normal 0.046 - 0.5 ng/mL: Suggestive 0.6 - 1.5 ng/mL: Consistent 11 0.0 - 0.045 ng/mL: Normal 0.046 - 0.5 ng/mL: Suggestive 0.6 - 1.5 ng/mL: Consistent 12 Presumptive negative for L. pneumophila serogroup 1 antigen in urine, suggesting no recent or current infection. Legionnaires' disease cannot be ruled out since other serogroups and species may also cause disease. 13 SOB, ON OXYGEN 14 >100 to <200 pg/mL: likely compensated congestive heart failure (CHF) 200 to 400 pg/mL: likely moderate CHF >400 pg/mL: likely moderate to severe CHF 15 Because ethnic data is not always readily [...] 15-29 5 Kidney failure <15 (or dialysis) 16 CHF 17 SITTING UP IN BED 18 URINE, CLEAN CATCH 19 Presumptive negative for L. pneumophila serogroup 1 antigen in urine, suggesting no recent or current infection. Legionnaires' disease cannot be ruled out since other serogroups and species may also cause disease. 20 SOB, DIFF BREATHING 21 CHF 22 NO GROWTH: FINAL REPORT 23 NO GROWTH: FINAL REPORT 24 CALLED CALLED Wes VALDOVINOS FOR FINAL BLD CULTURE REPORT AT 1353 07/31/17 by [facility].BB GRAM POSITIVE COCCI SEEN ON GRAM STAIN. COAGULASE NEG. STAPHYLOCOCCUS 25 ORGANISM IS OFTEN FOUND A CONTAMINANT. HOLDING ISOLATE IN MICROBIOLOGY LAB. PLEASE CALL [phone] IF FULL ID/OR SUSCEPTIBILITY DESIRED. * This is a corrected result. * A prior result that was reported as final has been changed. 26 NO GROWTH: FINAL REPORT 27 $153 FLU SHOT BILLED 28 No Legionella species isolated. Performed at: RN - [facility] [address] [id number] Children'S Tutor: Krysten Gunter MD, Phone: [phone] 29 CHF 30 >10 SQUAMOUS EPITHELIAL CELLS/LPF 31 FEW GRAM POSITIVE COCCI 32 FEW GRAM POS BACILLI SUGGESTIVE OF DIPTHEROIDS 33 FEW GRAM NEGATIVE BACILLI 34 RESPIRATORY [place] 35 Because ethnic data is not always readily [...] 15-29 5 Kidney failure <15 (or dialysis) 36 Test Performed by: [address] [id number] 37 Normal Range 180 to 914 Indeterminate Range 145 to 180 Deficient Range <145 38 RESULT: 05:01,05 REFERENCE VALUE Not Applicable 39 RESULT: 02:01,02:01 DQ Serologic Equivalent: 2,2 REFERENCE VALUE Not Applicable 40 These genes are permissive for celiac disease. The absence of HLA celiac permissive genes would make the presence of celiac disease unlikely. However, these genes can also be present in the normal population. ADDITIONAL INFORMATION Method: Molecular typing of HLA antigens performed using reverse SSOP and/or SSP methods, reported as serological equivalents and low to medium resolution molecular values. Performing Laboratory CLIA# [id number] Test Performed by: [place] [address] 41 REFERENCE VALUE <4.0 (Negative) Test Performed by: [place] [address] 42 Negative serology. Celiac disease unlikely. However, approximately 10% of patients with celiac disease are seronegative. Also, patients who are already adhering to a gluten-free diet may be seronegative. If celiac disease is highly clinically suspected, consider HLA-DQ typing. Test Performed by: [place] [address] 43 Normal Range 180 to 914 Indeterminate Range 145 to 180 Deficient Range <145 44 Because ethnic data is not always readily [...] 15-29 5 Kidney failure <15 (or dialysis) 45 Because ethnic data is not always readily [...] 15-29 5 Kidney failure <15 (or dialysis) 46 >100 to <200 pg/mL: likely compensated congestive heart failure (CHF) 200 to 400 pg/mL: likely moderate CHF >400 pg/mL: likely moderate to severe CHF 47 Because ethnic data is not always readily [...] 15-29 5 Kidney failure <15 (or dialysis) 48 Negative <1:80 Borderline 1:80 Positive >1:80 49 Negative <0.91 Equivocal 0.91 - 1.09 Positive >1.09 50 Negative <0.80 Equivocal 0.80 - 1.19 Positive >1.19 IgM levels may peak at 3-6 weeks post infection, then gradually decline. Performed at: - [facility] [address] [id number] Children'S Tutor: Krysten Gunter MD, Phone: [phone] Performed at: - [facility] [address] [id number] Children'S Tutor: Braydon Woodard MD, Phone: [phone] 51 08/16/15 [facility] [place] 52 Antibodies to HCV not detected; does not exclude early acute HCV infection. 53 No reportable results 54 Because ethnic data is not always readily [...] 15-29 5 Kidney failure <15 (or dialysis) 55 Normal Range 180 to 914 Indeterminate Range 145 to 180 Deficient Range <145 56 RESULT: No apparent monoclonal protein on serum electrophoresis. Test Performed by: [address] [address] Natural Remedy Consultant: Braydon Farr II, M.D., Ph.D. 57 Because ethnic data is not always readily [...] 15-29 5 Kidney failure <15 (or dialysis) 58 Serum levels of PSA measured using the [employer]ogn[employer] DXI MBDC Mediabritech immunoassay should not be interpreted as absolute evidence of the presence or absence of disease. The PSA value should be used in conjunction with other pertinent clinical diagnostic procedures. A PSA value in the range of 0.1 to 0.6 ng/ml is indeterminate if being used as an indicator of recurrent or residual disease. The values obtained with different assay methods or kits cannot be used interchangeably. 59 Desirable <150 Borderline high 150-199 High 200-499 Very High >500 60 Desirable <200 Borderline high 200-239 High >239 61 Low <40 Desirable: 40-60 High: >60 62 Desirable: <100 mg/dL Near Optimal: 100-129 mg/dL Borderline High: 130-159 mg/dL High: 160-189 mg/dL Very High: >189 mg/dL 63 LEFT LOWER LOBE FLUID LEFT LOWER LOBE FLUID~Verbal to DR. AILIN BURROUGHS by [id number] at 1554 on 11/16/14.~Results read kymberly LEFT LOWER LOBE FLUID~Verbal to DR. AILIN BURROUGHS by [id number] at 1554 on 11/16/14.~Results read kymberly LEFT LOWER LOBE FLUID~Verbal to DR. AILIN BURROGUHS by [id number] at 1554 on 11/16/14.~Results read kymberly LEFT LOWER LOBE FLUID~Verbal to DR. AILIN BURROUGHS by [id number] at 1554 on 11/16/14.~Results read kymberly LEFT LOWER LOBE FLUID LEFT LOWER LOBE FLUID LEFT LOWER LOBE FLUID LEFT LOWER LOBE FLUID 64 RUN DATE: 11/15/14 [facility] LAB LIVE PAGE 1 RUN TIME: [address] [place], [place] [address] Specimen Inquiry Name: REGGIE MENDOSA Kostas : [address]: Evelian Shelley MD Acct: [id number] Unit: [id number] AGE: 74 Location: OR Re11/14/14 SEX: M Status: REG SDC SPEC: [id number] MICKEY: 11/14/14-15[address] [facility] [address]: Evelina Shelley MD REQ: [id number] RECD: 11/14/14 STATUS: PARAG LEAVITT DR: Ailin [...] performed at Main Lab DEPARTMENT OF PATHOLOGY, [facility] [employer] CAROLYN [place] [address] Niko Bryan M.D. Director [facility] # [id number] 65 RUN DATE: 11/17/14 [facility] LAB LIVE PAGE 1 RUN TIME: 1046 [facility] [place], [place] [address] Specimen Inquiry Name: REGGIE MENDOSA : [address]: Evelina Shelley MD Acct: [id number] Unit: [id number] AGE: 74 Location: OR Re11/14/14 SEX: M Status: REG [facility] SPEC: [id number] MICKEY: 11/14/14-[address] [facility] [address]: Evelina Shelley MD REQ: [id number] RECD: 11/14/14 STATUS: COMP [facility] DR: Ailin Burroughs MD _ SOURCE: MISC FLUID SPDESC:OTHER ORDERED: BF Cult/GS COMMENTS: LEFT LOWER LOBE FLUID Verbal to DR. AILIN BURROUGHS by [id number] at 1554 on 11/16/14. Results read back [...] performed at Main Lab DEPARTMENT OF PATHOLOGY, [facility] [employer] [place] [address] Niko Bryan M.D. Director [facility] # [id number] RUN DATE: 11/17/14 [facility] LAB LIVE PAGE 2 RUN TIME: [address] [place] [address] Specimen Inquiry Patient: REGGIE MENDOSA [id number] (Continued) Specimen: [id number] Collected: 11/14/14 Received: 11/14/14 (Continued) Procedure Result [...] performed at Main Lab DEPARTMENT OF PATHOLOGY, [facility] [employer] [place], [place] [address] Niko Bryan M.D. Director [facility] # [id number] 66 RUN DATE: 12/04/14 [facility] LAB LIVE PAGE 1 RUN TIME: 5540 [facility] [place], [place] [address] Specimen Inquiry Name: REGGIE MENDOSA : [address]: Evelina Shelley MD Acct: [id number] Unit: [id number] AGE: 74 Location: OR Re11/14/14 SEX: M Status: REG SDC SPEC: [id number] MICKEY: 11/14/14-[address] [facility] [address]: Evelina Shelley MD REQ: [id number] RECD: 11/14/14 STATUS: RES [facility] DR: Ailin Burroughs MD _ SOURCE: MISC SOURC SPDESC:OTHER ORDERED: Fungal - Other COMMENTS: LEFT LOWER LOBE FLUID Procedure Result Verified Site Fungal Cult - Other Sources Preliminary 12/04/14- 1102 ML Organism 1 RUBÉN ALBICANS 1 COLONY ISOLATED OF 11/21/2014 END OF REPORT * ML=Testing performed at Main Lab DEPARTMENT OF PATHOLOGY, [facility] [employer] [place], [place] [address] Niko Bryan M.D. Director [facility] # [id number] 67 LEFT LOWER LOBE FLUID 68 RUN DATE: 12/11/14 [facility] LAB LIVE PAGE 1 RUN TIME: 1222 [facility] [place], [place] [address] Specimen Inquiry Name: REGGIE MENDOSA : [address]: Evelina Shelley MD Acct: [id number] Unit: [id number] AGE: 74 Location: OR Re11/14/14 SEX: M Status: REG SDC SPEC: [id number] MICKEY: 11/14/14-[address] [facility] [address]: Evelina Shelley MD REQ: [id number] RECD: 11/14/14 STATUS: PARAG [facility] DR: Ailin Burroughs MD _ SOURCE: MISC SOUR SPDESC:OTHER ORDERED: Fungal - Other COMMENTS: LEFT LOWER LOBE FLUID Procedure Result Verified Site Fungal Cult - Other Sources Final 12/11/14- 1222 L Organism 1 RUBÉN ALBICANS 1 COLONY ISOLATED OF 11/21/2014 END OF REPORT * ML=Testing performed at Main Lab DEPARTMENT OF PATHOLOGY, [address] [place] [address] Niko Bryan M.D. Director [facility] # [id number] 69 SOURCE: LUNG, LEFT LOWER LOBE FLUID MYCOBACTERIAL CULTURE FINAL No Growth after 60 days of incubation. Test Performed by: [address] [address] [employer] Consultant: Braydon Farr II, M.D., Ph.D. 70 RUN DATE: 07/19/14 [facility] LAB LIVE PAGE 1 RUN TIME: [address] [place] [address] Specimen Inquiry Name: REGGIE MENDOSA Kostas : [address]: Ailin Burroughs MD Acct: [id number] Unit: [id number] AGE: 74 Location: [facility] Re07/18/14 SEX: M Status: REG REF SPEC: [id number] MICKEY: 07/18/14- SUBM DR: Ailin Burroughs MD REQ: [id number] RECD: 07/18/14 STATUS: SOUT _ ORDERED: THIN PREP NON G FINAL DIAGNOSIS Sputum: Few atypical squamous cells seen. 1. SPUTUM GROSS DESCRIPTION 6 mls of watery, mucoid trevizo sputum. Signed (signature on file) Niko Bryan MD 1546 END OF REPORT * ML=Testing performed at Main Lab DEPARTMENT OF PATHOLOGY, [address] [place] [address] Niko Bryan M.D. Director [facility] # [id number] 71 RUN DATE: 07/20/14 [facility] LAB LIVE PAGE 1 RUN TIME: 1153 [address] [place], [place] [address] Specimen Inquiry Name: REGGIE MENDOSA : [address]: Ailin Burroughs MD Acct: [id number] Unit: [id number] AGE: 74 Location: [facility] Re07/18/14 SEX: M Status: REG REF SPEC: [id number] MICKEY: 07/18/[address] [facility] [address]: Ailin Burroughs MD REQ: [id number] RECD: 07/18/14 STATUS: COMP _ SOURCE: SPUTUM SPDESC: ORDERED: Sputum Cult/GS QUERIES: Medent Number [id number] Procedure Result Verified Site Sputum Smear Final 07/18/14- 1715 ML 2+ Epithelial Cells No Polys Observed 2+ Gram Positive Cocci in Chains, resembling Strep Sputum Culture Final 07/20/14- 1153 ML Organism 1 KLEBSIELLA OXYTOCA Quantity 2+ Organism 2 NORMAL INDIA Quantity 3+ 1. KLEBSIELLA OXYTOCA M.I.C. RX --------- ------ Ampicillin R Cefazolin <=4 S Cefepime <=1 S Ceftriaxone <=1 S Ciprofloxacin <=0.25 S Gentamicin <=1 S Levofloxacin <=0.12 S Meropenem <=0.25 S Nitrofurantoin 64 I Tetracycline <=1 S Pipercillin/Tazobactam <=4 S Trimethoprim/Sulfamethoxazole <=20 S Amoxicillin/Clavulanic Acid <=2 S Aztreonam <=1 S CONTINUED ON NEXT PAGE * ML=Testing performed at Main Lab DEPARTMENT OF PATHOLOGY, [facility] [employer] [place] [address] Niko Bryan M.D. Director [facility] # [id number] RUN DATE: 07/20/14 [facility] LAB LIVE PAGE 2 RUN TIME: 1935 [facility] [place], [place] [address] Specimen Inquiry Patient: REGGIE MENDOSA [id number] (Continued) Specimen: [id number] Collected: 07/18/14 Received: 07/18/14 (Continued) Procedure Result Verified Site Sputum Culture Final (continued) Contact the Microbiology Department for any additional antibiotic reporting. END OF REPORT * ML=Testing performed at Main Lab DEPARTMENT OF PATHOLOGY, [address] [place] [address] Niko Bryan M.D. Director [facility] # [id number] 72 RUN DATE: 07/20/14 [facility] LAB LIVE PAGE 1 RUN TIME: [address] [place] [address] Specimen Inquiry Name: DEONDREREGGIE : [address]: Ailin Burroughs MD Acct: [id number] Unit: [id number] AGE: 74 Location: [facility] Re07/18/14 SEX: M Status: REG REF SPEC: [id number] MICKEY: 07/16/14-[address] [facility] [address]: Ailin Burroughs MD REQ: [id number] RECD: 07/18/14 STATUS: COMP _ SOURCE: SPUTUM SPDESC: ORDERED: Sputum Cult/GS QUERIES: Medent Number [id number] Procedure Result Verified Site Sputum Smear Final 07/18/14- 1725 ML 2+ Epithelial Cells 2+ Polys 3+ Gram Positive Cocci in Chains, resembling Strep Sputum Culture Final 07/20/14- 1223 ML Organism 1 KLEBSIELLA OXYTOCA Quantity 1+ Organism 2 NORMAL INDIA Quantity 3+ Please refer to SHANTAN[facility] [address]34[address] for sensitivity testing END OF REPORT * ML=Testing performed at Main Lab DEPARTMENT OF PATHOLOGY, [facility] [employer] [place] [address] Niko Bryan M.D. Director CLIA # [id number] 74 RUN DATE: 07/19/14 [facility] LAB LIVE PAGE 1 RUN TIME: 0960 [facility] [place], [place] [address] Specimen Inquiry Name: REGGIE MENDOSA : [address]: Ailin Burroughs MD Acct: [id number] Unit: [id number] AGE: 74 Location: [facility] Re07/18/14 SEX: M Status: REG REF SPEC: [id number] MICKEY: 07/16/14-[address] [facility] [address]: Ailin Burroughs MD REQ: [id number] RECD: 07/18/14 STATUS: SOUT _ ORDERED: THIN PREP NON G FINAL DIAGNOSIS Sputum: Negative for malignant cells. 1. SPUTUM GROSS DESCRIPTION 2 mls of mucoid sputum Signed (signature on file) Niko Bryan MD 1546 END OF REPORT * ML=Testing performed at Main Lab DEPARTMENT OF PATHOLOGY, [address] [place] [address] Niko Bryan M.D. Director [facility] # [id number] 74 Because ethnic data is not always readily [...] 15-29 5 Kidney failure <15 (or dialysis) 75 Please note: The following may produce a false positive D Dimer test: - Rheumatoid factor greater than 60 IU/ml - Plasma hemoglobin greater than 0.05 gm/dl - Bilirubin greater than 50 mg/dl - Lipids greater than 1000 mg/dl - FDP greater than 20 ug/ml 76 Because ethnic data is not always readily [...] 15-29 5 Kidney failure <15 (or dialysis) 77 Reference Range and Interpretation: TnI (ng/mL) Interpretation Less Than 0.03 ng/mL Not supportive of diagnosis of MD 0.03 - 0.50 ng/mL Indeterminate: suggest serial studies if clinically indicated. Greater than 0.5 ng/mL Consistent with diagnosis of MD 78 magnesium added 12/29/13 by [id number] 79 magnesium added 12/29/13 by [id number] 80 Desirable <150 Borderline high 150-199 High 200-499 Very High >500 81 Desirable <200 Borderline high 200-239 High >239 82 Low <40 Desirable: 40-60 High: >60 83 Desirable <100 Near Optimal 100-129 Borderline high 130-159 High 160-189 Very High >189 84 Note: Persistent reduction for 3 months or more in an eGFR <60 mL/min/1.73 m2 defines CKD. Patients with eGFR values >/=60 mL/min/1.73 m2 may also have CKD if evidence of persistent proteinuria is present. The original MDRD equation for estimated GFR is not valid for patients less than 18 years of age. Additional information may be found at www.kdoqi.org. [address] COPIES TO DR. AILIN BURROUGHS, AND DR OFE HENDERSON 86 Note: Persistent reduction for 3 months or more in an eGFR <60 mL/min/1.73 m2 defines CKD. Patients with eGFR values >/=60 mL/min/1.73 m2 may also have CKD if evidence of persistent proteinuria is present. The original MDRD equation for estimated GFR is not valid for patients less than 18 years of age. Additional information may be found at www.kdoqi.org. 87 When pt went to [facility] draw station, all labs were drawn except the Ammonia, pt will go to [facility] main lab to have drawn. SL 88 FASTING 89 Because ethnic data is not always readily [...] 15-29 5 Kidney failure <15 (or dialysis) 90 The testing method is an immunoenzymatic assay manufactured by [employer] and performed on the [employer] DxI 800. Values obtained with different assay methods or kits may be different and cannot be used interchangeably. Test results cannot be interpreted as absolute evidence for the presence or absence of malignant disease. Alpha-Fetoprotein values are not interpretable in females for the investigation of malignant disease. Test Performed by: [address] [address] [employer] Consultant: Luca Justice III, M.D. 91 Smoking may increase values Serum levels of CEA as measured using Chemiluminescence Microparticle Immunoassay on the [employer] DXI immunoassay system should not be interpreted as absolute evidence of the presence or absence of disease. The CEA value should be used in conjunction with other pertinent clinical diagnostic procedures. The values obtained with different seda methods or kits cannot be used interchangeably. 92 Test Performed by: [address] [address] [employer] Consultant: Luca Justice III, M.D. 93 FASTING 94 Serum levels of PSA measured using the [employer] [place] DXI Hybritech immunoassay should not be interpreted as absolute evidence of the presence or absence of disease. The PSA value should be used in conjunction with other pertinent clinical diagnostic procedures. A PSA value in the range of 0.1 to 0.6 ng/ml is indeterminate if being used as an indicator of recurrent or residual disease. The values obtained with different assay methods or kits cannot be used interchangeably. 95 FASTING 96 Because ethnic data is not always readily [...] 15-29 5 Kidney failure <15 (or dialysis) 97 FASTING 98 FASTING 99 FASTING Procedures Date CPT Code Description Status 05/15/2016 Inject/Drain Joint/Bursa Major Completed 03/24/2016 00867 X-Ray Shoulder Two Or More Views Completed 03/21/2016 Inject/Drain Joint/Bursa Major Completed 01/31/2016 Inject/Drain Joint/Bursa Major Completed 12/27/2013 82328 Electrocardiogram Complete Completed 05/05/2013 34174 Oximetry, Single Completed 05/05/2013 12753 Electrocardiogram Complete Completed Encounters Type Date Location Provider CPT E/M Dx Office Visit 09/17/2017 2:45p Main Office Jesse Haywood D.O. 41110 J44.9 I10 K21.9 I73.9 I50.9 F17.201 R14.0 Office Visit 08/04/2017 1:45p Main Office Jesse Haywood D.O. 49979 J44.9 I10 K21.9 I73.9 I50.9 Office Visit 07/15/2017 2:45p Main Office Jesse Haywood D.O. 96849 J44.9 F17.201 I10 K21.9 I73.9 J44.1 Office Visit 06/16/2017 3:30p Main Office Jesse Haywood D.O. 03513 J44.9 F17.201 Z00.00 Z71.89 Office Visit 01/12/2017 3:45p Main Office Jesse Haywood D.O. 61705 R06.02 I50.9 I10 J44.9 K21.9 Office Visit 11/10/2016 1:15p Main Office Jesse Haywood D.O. 29582 I50.9 R06.02 I73.9 I10 R35.1 R60.0 Office Visit 09/30/2016 10:30a Main Office Jesse Haywood D.O. 87561 M75.102 J44.9 R06.02 I73.9 Z01.818 I10 G90.09 I25.10 Office Visit 06/05/2016 2:00p Main Office Jesse Haywood D.O. 13876 M75.102 Z23 J44.9 R06.02 Z00.01 Office Visit 05/15/2016 10:30a Main Office Jesse Haywood D.O. 70427 M25.512 M75.52 Office Visit 03/21/2016 2:00p Main Office Braydon Carmona M.D. 00385 M25.512 Office Visit 01/31/2016 8:30a Main Office Jesse Haywood D.O. 23361 I73.9 K21.9 I25.10 I10 D07.5 D01.0 K74.0 M25.512 M75.52 H65.23 Office Visit 08/16/2015 9:45a Main Office Jesse Haywood D.O. 26823 G90.09 Office Visit 08/01/2015 12:55p Main Office Jesse Haywood D.O. 42558 I73.9 K74.0 D01.0 D07.5 K21.9 I25.10 I10 Office Visit 01/30/2015 11:30a [place] [address] 786.2 233.4 230.3 571.5 530.81 414.00 Office Visit 10/10/2014 10:15a [place] [address] 786.2 794.2 414.00 230.3 233.4 571.5 530.81 278.00 Office Visit 07/06/2014 10:00a [place] [address] 786.2 794.2 414.00 530.81 230.3 233.4 571.5 110.4 Office Visit 05/11/2014 11:30a [place] [address] 786.2 477.9 Office Visit 02/09/2014 11:15a [place] [address] 414.00 456.20 530.81 230.3 233.4 794.2 Office Visit 12/27/2013 11:30a [place] [address] 780.8 414.00 456.20 530.81 553.1 Office Visit 09/13/2013 10:15a [place] [address] 571.5 780.79 456.20 230.3 786.2 530.81 Office Visit 08/04/2013 10:00a [place] [address] 782.3 571.5 786.2 780.79 233.4 230.3 Office Visit 07/12/2013 10:15a [place] [address] 571.5 456.20 414.01 786.2 281.9 780.79 233.4 230.3 Office Visit 05/19/2013 2:30p [place] [address] 571.5 456.20 281.9 780.79 414.01 782.3 786.2 Office Visit 05/05/2013 9:40a Main Office Danette Capps [address]89 571.5 281.9 456.20 780.79 Plan of Care Future Appointment(s):12/16/2017 2:15 pm - Jesse Haywood D.O. at Main Fshcwt5809/17/2017 - Jesse Haywood D.O.J44.9 Chronic obstructive pulmonary disease, arkyguabznzT81 Essential (primary) jvznrrntbcfyE87.9 Gastro-esophageal reflux disease without sdwplxbvcmuR78.9 Peripheral vascular disease, ylkxwxswutcF14.9 Heart failure, psxbccltdhcF13.201 Nicotine dependence, unspecified, in lvxlxrpiaT66.0 Abdominal distension (gaseous)New Medication: Simethicone 125 mgProbiotic & Acidophilus Formula Extra Strength
--- OUTSIDE RECORDS SUMMARY | 2017-10-05 01:04 | XMS REPORT ---
:1940 External Reference #:[id number] Author Organization [facility] Address [address] [address] Phone [phone] Care Team Providers Name Role Phone Ailin Burroughs MD Care Team Information Track Inspector Unavailable Jesse Haywood DO Primary Care Physician Unavailable Payers Type Date Identification Numbers Payment Provider Subscriber Medicare Primary Effective: Policy Number: Medicare Reggie Mendosa 2006 [id number] PayID: [id number] [address] [place] [address] [facility] Part [facility] Policy Number: [id number] [facility] Reggie Mendosa PayID: [id number] [address] [place] [address] Problems Date Description Provider Status Onset: 11/29/2013 Hyperlipidemia Chuy Hernandez M.D., [facility], Active [facility] Onset: 11/29/2013 Essential hypertension Chuy Hernandez M.D., [facility], Active [facility] Onset: 11/29/2013 Conduction disorder of the heart Chuy Hernandez M.D., [facility], Active [facility] Onset: 11/29/2013 Chronic ischemic heart disease Chuy Hernandez M.D., [facility], Active [facility] Onset: 01/12/2014 Sinus node dysfunction Chuy Hernandez M.D., [facility], Active [facility] Onset: 01/12/2014 Atrial fibrillation Chuy Hernandez M.D., [facility], Active [facility] Onset: 01/12/2014 Aortic valve disorder Chuy Hernandez M.D., [facility], Active [facility] Onset: 11/01/2014 Difficulty breathing Evelina Shelley MD Active Onset: 11/01/2014 Pulmonary emphysema Evelina Shelley MD Active Onset: 11/01/2014 Cough Evelina Shelley MD Active Onset: 11/01/2014 Gastroesophageal reflux disease Evelina Shelley MD Active Onset: 11/01/2014 Allergic rhinitis Evelina Shelley MD Active Onset: 11/20/2014 Disorder of lung Evelina Shelley MD Active Onset: 10/17/2015 Chronic atrial fibrillation Chuy Hernandez M.D., [facility], Active [facility] Onset: 10/26/2015 Dyspnea Chuy Hernandez M.D., [facility], Active [facility] Onset: 10/26/2015 Obesity Chuy Hernandez M.D., [facility], Active [facility] Onset: 01/25/2016 Hypoxemia Evelina Shelley MD Active Onset: 02/04/2016 Chest pain Chuy Hernandez M.D., [facility], Active [facility] Onset: 03/31/2016 Persistent atrial fibrillation Chuy Hernandez M.D., [facility], Active [facility] Onset: 03/31/2016 Paroxysmal ventricular tachycardia Chuy Hernandez M.D., [facility] , Active [facility] Onset: 08/14/2016 Full thickness rotator cuff tear Latasha Meier MD Active Onset: 08/14/2016 Localized, primary osteoarthritis Latasha Meier MD Active of the shoulder region Onset: 09/15/2016 Preoperative cardiovascular Chuy Hernandez M.D., [facility], Active examination [facility] Onset: 09/15/2016 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., [facility], Active coronary artery w/o ang pctrs [facility] Onset: 01/08/2017 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 Family History Date Family Member(s) Problem(s) Comments General non contibutory Father non contributory : (age 75 Years) Father due to COPD Father Black Lung : (age 75 Years) Mother due to NC Mother Stroke Siblings 8 Siblings 1 sister [...] hx 2 pack cigarettes per day, quit 1999 Recreational Drug Use Never Used Drugs Daily Caffeine Does Not Consume Caffeine Exercise Type/Frequency Exercises regularly Allergies, Adverse Reactions, Alerts Date Description Reaction Status Severity Comments 07/20/2006 PCN active rash 09/30/2012 Pravastatin muscle aches active 03/13/2017 Doxycycline Nausea and Vomiting active Severe 09/17/2017 Beta Adrenergic Blockers active bradycardia Medications Medication Date Status Form Strength Qnty SIG Indications Ordering Provider Ranitidine HCL 06/16 Active Capsules 300mg take 1 tablet two times a day Tamsulosin HCL 05/03 Active Capsules 0.4mg 1 by mouth two times day Proair HFA 11/07 Active Aerosol 108(90Bas 8.500 1 puff Evelina /2016 e) gm every 6 [place], mcg/Act hours as MD needed Oxygen 06/20 Active Misc 1unit please use Evelina /2016 s o2 at [place], 2l/min at MD night Flutter 06/12 Active Device 1unit use as J43.9 Evelina s instructed [place], twice a day Nebulizer 01/24 Active Kit 1unit 1 unit Evelina Kit/Tubing/Mouth /2015 s nebulizatio [place], piece n every 4- MD 6 hours as needed Ipratropium 01/24 Active Solution 0.5-2.5(3 270ml 1 unit J43.9 Evelina [place]/Albutero )mg/3ML every 6 [place], l Sulfate hours as MD needed Isosorbide 10/17 Active Tablets ER 30mg 90tab 1 by mouth I25.9 Chuy Mononitrate ER /2015 24HR s every day Jordyn Hernandez, [facility], [facility] Fluticasone 05/30 Active Suspension 50mcg/Act 16uni inhale 2 Evelina Propionate ts into each Karsten, nostril daily (pt not using) Furosemide 02/18 Active Tablets 20mg 90tab Take 3 Husam S. s tablets by Nelson, mouth every DO FACC day until weight reaches 240 pounds on home scale then decrease to 1 daily Lactulose 02/18 Active Solution 10GM/15ML 15 ml Mon,Weds, Fri in the a.m. by mouth Spironolactone Active Tablets 50mg 90tab 1 po qd Am Manjeet, / s MD Ailin Ecotrin Low Active Tablets DR 81mg 1 tablet Unknown Strength /0000 daily Multivitamins Active Capsules 30cap 1 capsule Unknown / s randa;y Tums Active Chewtabs 500mg Every 12 Unknown / hours as needed Pantoprazole Active Tablets DR 40mg 1 by mouth Unknown Sodium / twice a day Symbicort Active Aerosol 160-4.5mc 2 puff J43.9 Unknown / g/Act twice a day Spiriva Respimat Active Aerosol 2.5mcg/Ac 2 puffs Unknown t every day Magnesium Oxide Active Tablets 400mg 1 by mouth Unknown / every day Ventolin HFA Active Aerosol 108(90Bas 2 puffs by Unknown /0000 e) mouth four mcg/Act times a day as needed Levoxyl Active Tablets 50mcg 1 daily Unknown Levocetirizine Active Tablets 5mg 1 by mouth Unknown Dihydrochloride / every day as needed Levofloxacin Active Tablets 750mg take 1 Unknown tablet by mouth once daily for four days ending 09/18/17 Prednisone Active Tablets 10mg Take 4 Tabs Unknown Once For 1 Day. Then 3 Tabs For 1 Day. Then 2 Tabs Fo...Ending 09/18/17 Percocet 10/09 Hx Tablets 5-325mg 60tab 1-2 tabs by M19.212 s mouth every Yase, - 4-6 hours 01/06 as needed pain Prednisone 06/11 Hx Tablets 1 by mouth every day - (as 09/11 directed done on 05/16/16) Oxygen 01/24 Hx Misc 1unit please use R09.02 Evelina /2016 s o2 at Karsten, - 2l/min at 06/12 night /2015 Symbicort 12/30 Hx Aerosol 80-4.5mcg 30.6u 2 puff J43.9 Evelina /2015 /Act nits twice a day Karsten, - 05/19 Fluticasone 02/05 Hx Suspension 50mcg/Act 16uni 2 sprays Evelina Propionate ts each Kar[place], - nostril 05/30 twice daily /2014 Fluticasone 01/10 Hx Suspension 50mcg/Act 16gm 2 sprays Evelina Propionate each Kar[place], - nostril 02/05 everyday /2014 Advair HFA 11/29 Hx Aerosol 115-21mcg 24uni 2 puff Evelina /2014 /Act ts twice a day Karsten, - -- PT Is 02/02 Not Using /201510/26/15 Fluticasone 11/20 Hx Suspension 50mcg/Act 16gm 2 sprays 477.9 Evelina Propionate each Karsten, - nostril 2 01/10 times a day /2014 Cipro 11/20 Hx Tablets 500mg 7tabs 1 tab by 786.09 Evelina /2015 mouth every Karsten, - day 04/04 Zithromax Z-Hayden 11/07 Hx Tablets 250mg 6tabs Take as Evelina directed Kar[place], - 11/07 Zithromax Z-Hayden 11/07 Hx Tablets 250mg 6tabs Take as Evelina directed [place], - 11/07 Zithromax Z-Hayden 11/07 Hx Tablets 250mg 6tabs Take as Evelina directed [place], - 11/19 Losartan 08/15 Hx Tablets 50mg 90tab 1 by mouth Husam SBerto Potassium /2013 s every day Omar, - DO [facility] 09/17 Losartan 07/24 Hx Tablets 25mg 30tab 1 by mouth Chuy Potassium /2013 s every day Evette Hernandez M.D., 08/15 [facility], /2013 [facility] Lisinopril 01/30 Hx Tablets 2.5mg 90tab 1 by mouth Chuy /2013 s every day Evette Hernandez M.D., 07/24 [facility], [facility] Combivent 12/28 Hx Aerosol 2unit 2 Puffs PO Qutayb s bid S. - [facility] 11/28 , M.D. /2013 Singulair 12/28 Hx Tablets 10mg 30tab 1 PO qd Qutayb s S. - [place] 11/28 , M.D. /2013 Aspirin 10/08 Hx Tablets 325mg 1 PO qd Qutayb S. - [place] 11/28 , M.D. /2013 Plavix 10/08 Hx Tablets 75mg 90tab 1 PO qd Qutayb s S. - [place] 11/28 , M.D. /2013 Coumadin 08/25 Hx Tablets 5mg 100ta as Directed Qutayb bs S. - [place] 10/08 , M.DBerto /2007 Furosemide 05/27 Hx Tablets 20mg 90tab 1 PO qd Qutayb s S. - [place] 12/28 , M.D. /2007 Imodium Advanced 03/22 Hx Tablets prn Qutayb S. - [facility] 11/28 , M.D. /2013 Phenazopyridine 03/22 Hx Tablets 100mg as needed [facility] /2006 Aspirin 12/07 Hx Chewtabs 81mg 1 PO qd Qutayb S. - [place] 05/27 , M.D. /2006 Cipro 10/06 Hx Tablets 500mg 1 PO bid Qutayb S. - [facility] 12/07 , M.D. /2006 Flomax 10/06 Hx Capsules 0.4mg 60cap one qd Qutaybeh s S. - [place] 11/28 , M.D. /2013 Toprol XL 10/06 Hx Tablets 25mg 90tab 1 po qd Qutaybeh s S. - [place] 11/28 , M.D. /2013 Ferrous Sulfate 09/03 Hx Tablets 325mg 1 po bid Qutayb S. - [place] 10/06 , M.D. /2006 Vitamins 09/03 Hx Caplets 30cap 1 PO qd [facility]aybeh [facility] , Jordyn /2013 Toprol XL 09/03 Hx Tablets 25mg 1 po bid [facility] , Jordyn /2006 Warfarin 08/25 Hx Tablets 1mg 90tab as Directed Qutaybeh s [facility] - [facility] 04[facility] , Jordyn /2006 Aspirin Enteric 08/25 Hx Tablets 325mg 1 po qd Qutaybeh Coated [facility]. - [facility] 12[facility] , Wes.Jay Jay /2006 Hydrocodone 08/25 Hx Capsules 5mg;500 prn pain Qutaybeh & /2005 mg S. [facility]aminophen - [facility] , Jordyn /2005 Ferrous 08/25 Hx Tablets 325mg 1 po qd Qutaybeh Gluconate [facility] , Jordyn /2005 Xopenex HFA 08/25 Hx Solution prn [facility]beh [facility] , Jordyn /2006 Lasix 08/25 Hx Tablets 20mg 1 po qd x 5 Qutaybeh days [facility] - [facility] Jordyn herbert /08/24 Spiriva 08/25 Hx Capsules 18mcg qd Qutaybeh Handihaler S. - [facility] 10/[facility] , Jordyn /2006 Advair Diskus 08/25 Hx Inhaler 250mcg;50 1 puff bid Qutaybeh mcg S. - [facility] 10/06 , Wes.Jay Jay /2006 Toprol XL 07/30 Hx Tablets 25mg 60tab 1 po bid Qutaybeh s S. - [facility] 09/03 , M.DBerto /2005 Norvasc 07/22 Hx Tablets 5mg 30tab 1 po qd Qutaybeh s S. - [facility] 07/30 , M.DBerto /2005 Mucomyst 07/22 Hx 600mg 6unit 1 po bid [facility]beh Thu, [facility] , M.D. Toprol XL 07/21 Hx Tablets 25mg 30tab 1 po qd [facility] 07/30 , M.D. Aciphex 07/20 Hx Tablets 20mg 30tab 1 PO qd s [facility] 11/28 , M.D. Diovan HCT 07/20 Hx Tablets 80mg;12.5 90tab 1 po qd Corey mg s F. Mauser, 11/28 M.D. Flomax 07/20 Hx Capsules 0.4mg 60cap 1 qd [facility] 09/03 , M.D. Tylenol PM 07/20 Hx q qhs [facility] 11/28 , M.D. Aleve 07/20 Hx Caplets 220mg 2 po qd [facility] 09/03 , M.D. Nadolol Hx Tablets 20mg 90tab 1/2 tab po Manjeet, /0000 s qd MD Ailin - 01/[address] 40mg 90tab 1 po bid Manjeet, Sodium / s MD Ailin - 02/02 [place] Colon Hx Capsules 30cap 1 po qd PM Unknown Health /0000 s - 10/16 Furosemide Hx Tablets 20mg 30tab 1/2 tab po Manjeet, /0000 s marisa Parisi MD - 02/18 Xifaxan Hx Tablets 550mg 42tab 1/2 tab po , / s brad Stuart MD - 10/16 Lactulose Hx Solution 10GM/15ML 900ml 1tbs twice , daily Am/PM MD Narciso - prevent 02/18 encephalopa thy Ranitidine HCL Hx Capsules 150mg 1 by mouth Unknown /0000 twice a day - 04/04 Fluticasone Hx Suspension 50mcg/Act 2 sprays Unknown Propionate / each - nostril 11/20 daily needed Fluocinonide Hx Cream 0.05% twice a day Unknown /0000 as needed - rash 10/16 Lotrimin AF Hx Aerosol 2% as needed Unknown / - 10/16 Ranitidine HCL Hx Capsules 150mg 1 by mouth Unknown /0000 twice a day - 03/30 Medications Administered in Office Medication Date Status Form Strength Qnty SIG Indications Ordering Provider Inj, Administered Injection Guicho Soler Regadenoson, 014 Toñito, 0.1 MG Jordyn, FACEnio, FASNC Technetium TC Administered Injection Guichohuong Soler 99M 014 Toñito TetrofosminJordyn, FAC, Per Unit Dose FASMISAEL Up To 40 Millicuries Immunizations CPT Code Status Date Vaccine Lot # [id number] Given 12/31/2015 Fluvirin Im 3Yrs And Older Vital Signs Date Vital Result Comment 09/17/2017 Height 72 inches 6'0" Weight 247.50 [...] Result H/L Range Note Basic Metabolic Panel 10/09/2016 Sodium 138 mmol/L 133-145 Potassium 4.1 mmol/L 3.5-5.0 Chloride 110 mmol/L 101-111 Co2 Carbon Dioxide 26 mmol/L 22-32 Anion Gap 2 mmol/L 2-11 Glucose 102 mg/dL High 70-100 Blood Urea Nitrogen 15 mg/dL 6-24 Creatinine 1.23 mg/dL High 0.67-1.17 BUN/Creatinine Ratio 12.2 8-20 Calcium 9.5 mg/dL 8.6-10.3 Egfr Non- 57.4 >60 Egfr 73.8 >60 1 Urinalysis Profile 10/09/2016 Urine Color Yellow Urine Appearance Clear Urine Specific [place] 1.014 1.010-1.030 Urine pH 5.0 5-9 Urine [...] Blood Type A Positive Antibody Screen NEGATIVE Basic Metabolic Panel 07/05/2015 Sodium 136 mmol/L 133-145 Potassium 4.1 mmol/L 3.5-5.0 Chloride 104 mmol/L 101-111 Co2 Carbon Dioxide 26 mmol/L 22-32 Anion Gap 6 mmol/L 2-11 Glucose 82 mg/dL 70-100 Blood Urea Nitrogen 15 mg/dL 6-24 Creatinine 1.20 mg/dL High 0.67-1.17 BUN/Creatinine Ratio 12.5 8-20 Calcium 9.3 mg/dL 8.6-10.3 Egfr Non- 59.2 >60 Egfr 76.1 >60 2 Laboratory test finding 04/11/2015 Alt (SGPT) 24 U/L 7-52 Ast (Sgot) 30 U/L 13-39 Lipid Profile (Trig/Chol/HDL) 04/11/2015 Triglycerides 55 mg/dL 3 Cholesterol 146 mg/dL 4 HDL Cholesterol 37.2 mg/dL 5 LDL Cholesterol 98 mg/dL 6 Order 11/20/2014 6 Minute Walk <pending> PFTW/Spirometry Vol Pre/Post Bronchdilat Dlco Complete <pending> Surgical Pathology 11/14/2014 S RUN DATE: <SEE NOTE> Acid Fast Smear 11/14/2014 Acid Fast Stain - (SEE NOTE) 8, 9 Direct Direct Body Fluid C&S 11/14/2014 Body Fluid Cult Gram (SEE NOTE) 8, 10 Stain Laboratory test 11/14/2014 Fungal Cult - Other (SEE NOTE) 8, 11 finding Sources Fungal Cult Other 11/14/2014 Fungal Cult - Other (SEE NOTE) 12, 13 Sources Sources Fungal Cult Other 11/14/2014 Fungal Cult - Other (SEE NOTE) 12, 14 Sources Sources Laboratory test 11/14/2014 Mycobacterial Culture See Comment 15 finding Cytology Non-Wheel Filler 11/14/2014 [place] RUN DATE: <SEE NOTE> Laboratory [...] Egfr Non- 65.6 >60 Egfr 84.4 >60 17 Inr/Protime 11/01/2014 Inr 1.20 High 0.78-1.07 18 CBC Auto Diff 11/01/2014 White Blood Count [...] Egfr Non- 70.2 >60 Egfr 90.3 >60 19 Comp Metabolic Panel 12/27/2013 Sodium 140 mmol/L 133-145 20 Potassium 4.4 mmol/L 3.7-5.6 20 Chloride 109 mmol/L 101-111 20 Co2 Carbon Dioxide 27 mmol/L 22-32 20 Anion Gap 4 mmol/L 2-11 20 Glucose 79 mg/dL 70-100 20 Blood Urea Nitrogen 14 mg/dL 6-24 20 Creatinine 1.07 mg/dL 0.67-1.17 20 BUN/Creatinine Ratio 13.1 8-20 20 Calcium 8.9 mg/dL 8.6-10.3 20 Total Protein 6.2 g/dL Low 6.4-8.9 20 Albumin 3.5 g/dL 3.2-5.2 20 Globulin 2.7 g/dL 2-4 20 Albumin/Globulin Ratio 1.3 1-3 20 Total Bilirubin 1.70 mg/dL High 0.2-1.0 20 Alkaline Phosphatase 75 U/L 34-104 20 Alt 22 U/L 7-52 20 Ast 30 U/L 13-39 20 Egfr Non- 67.9 >60 20 Egfr 87.4 >60 20, 21 Laboratory test finding 12/27/2013 Troponin I 0.00 ng/mL <0.03 20, 22 TSH (Thyroid Stimulating Horm) 2.98 IU/mL 0.34-5.60 20, 23 CBC With Manual Diff 12/27/2013 White Blood Count 5.4 10^3/uL 4.8-10.8 20 Red Blood Count 4.89 10^6/uL 4.0-5.4 20 Hemoglobin 15.1 g/dL 14.0-18.0 20 Hematocrit 44 % 42-52 20 Mean Corpuscular Volume 90 fL 80-94 20 Mean Corpuscular Hemoglobin 31 pg 27-31 20 Mean Corpuscular HGB Conc 35 g/dL 31-36 20 Red Cell Distribution Width 15 % 10.5-15 20 Platelet Count 130 10^3/uL Low 150-450 20 Mean Platelet Volume 9 um3 7.4-10.4 20 Abs Neutrophils 3.7 10^3/uL 1.5-7.7 20 Abs Lymphocytes 0.9 10^3/uL Low 1.0-4.8 20 Abs Monocytes 0.6 10^3/uL 0-0.8 20 Abs Eosinophils 0.2 10^3/uL 0-0.6 20 Abs Basophils 0 10^3/uL 0-0.2 20 Abs Nucleated RBC 0.01 10^3/uL 20 Neutrophil % 72 % 38-83 20 Lymphocytes % 14 % Low 25-47 20 Monocytes % 9 % 0-13 20 Eosinophils % 5 % 0-6 20 RBC Morphology Normal Normal 20 Laboratory test finding 12/27/2013 Magnesium 1.9 mg/dL 1.9-2.7 20, 24 Lipid Profile (Trig/Chol/HDL) 12/15/2013 Triglycerides 81 mg/dL 25 Cholesterol 125 mg/dL 26 HDL Cholesterol 29.2 mg/dL 27 LDL Cholesterol 80 mg/dL 28 Protime 01/26/2007 Inr 2.35 29 Protime 18.4 High 10.9-13.1 Protime 12/31/2006 Inr 2.13 30 Protime 17.5 High 10.9-13.1 Protime 12/07/2006 Inr 2.10 31 Protime 17.4 High 10.9-13.1 Liver Function Panel 12/03/2006 Albumin/Globulin Ratio 1.2 1-3 32 Albumin 3.7 GM/DL 3.2-5.2 32 Alkaline Phosphatase 74 U/L 39-117 32 Alt (SGPT) 78 U/L High 17-63 32 Ast (Sgot) 79 U/L High 12-42 32 Bilirubin Direct 0.2 mg/dL 0.1-0.5 32 Globulin 3.1 GM/DL 2-4 32 Indirect Bilirubin 0.8 mg/dL High 0.1-0.75 32 Bilirubin Total 1.0 mg/dL 0.4-1.5 32 Total Protein 6.8 GM/DL 6.2-8.1 32 Lipid Profile 12/03/2006 Cholesterol/HDL Ratio 7.00 AVERAGE High 1-4.97 32 (Trig/Chol/HDL) Cholesterol 168 mg/dL Less Than 200 32, 33 Triglyceride 149 mg/dL 40-200 32 High Density Lipoprotein 24 mg/dL Low 40-60 32, 34 Low Density Lipoprotein 114 mg/dL High Less Than 100 32, 35 Basic Metabolic Panel 12/03/2006 One Over Creatinine 0.76 32 Anion Gap 5.0 mmol/L 2-11 32, 36 BUN 16 mg/dL 6-24 32 Calcium 8.9 mg/dL 8.7-10.2 32 Chloride 106 mmol/L 101-111 32 Co2 (Carbon Dioxide) 28.0 mmol/L 22-32 32 Glucose 96 mg/dL 70-105 32 Potassium 4.0 mmol/L 3.5-5.0 32 Sodium 139 mmol/L 135-145 32 BUN/Creatinine Ratio 12.3 8-20 32 Creatinine 1.3 mg/dL 0.5-1.4 32 CBC With Manual Diff 12/03/2006 White Blood Count 4.8 CUMM 4.8-10.8 32 Absolute Neutrophil Count 3.5 32 Anisocytosis SLIGHT 32 Band Neutrophil 3 % 0-8 32 Basophil 1 % 0-2 32 Hematocrit 39 % Low 42-52 32 Hemoglobin 13.5 g/dL Low 14.0-18.0 32 Eosenophil 2 % 0-6 32 Lymphocyte 16 % 5-47 32 Mean Corpuscular HGB Cone 35 g/dL 32-36 32 Mean Corpuscular Hemoglob 29 pg 27-31 32 Mean Corpuscular Volume 82 um3 80-94 32 Monocyte 8 % 0-13 32 Mean Platelet Volume 9.1 um3 7.4-10.4 32 Platelet Count 198 CUMM 150-450 32 Polysegmented Neutrophil 70 % 38-83 32 Red Cell Count 4.76 CUMM 4.6-6.2 32 Redcell Distribution WDTH 15 % 10.5-15 32 1 Because ethnic data is not always [...] 5 Kidney failure <15 (or dialysis) 3 Desirable <150 Borderline high 150-199 High 200-499 Very High >500 4 Desirable <200 Borderline high 200-239 High >239 5 Low <40 Desirable: 40-60 High: >60 6 Desirable: <100 mg/dL Near Optimal: 100-129 mg/dL Borderline High: 130-159 mg/dL High: 160-189 mg/dL Very High: >189 mg/dL 7 RUN DATE: 11/16/14 [facility] LAB LIVE PAGE 1 RUN TIME: [address] [place] [address] Specimen Inquiry Name: REGGIE MENDOSA : [address]: Evelina Shelley MD Acct: [id number] Unit: [id number] AGE: 74 Location: OR Re11/14/14 SEX: M Status: REG [facility] SPEC: [id number] MICKEY: 11/14/14- [facility] DR: Evelina Shelley MD REQ: [id number] RECD: 11/14/14 STATUS: SOUT _ ORDERED: LEVEL [...] performed at Main Lab DEPARTMENT OF PATHOLOGY, [address] [place] [address] Niko Bryan M.D. Director [facility] # [id number] LEFT LOWER LOBE FLUID LEFT LOWER LOBE FLUID~Verbal to DR. AILIN BURROUGHS by [id number] at 1554 on 11/16/14.~Results read sravanthi LEFT LOWER LOBE FLUID~Verbal to DR. AILIN BURROUGHS by [id number] at 1554 on 11/16/14.~Results read sravanthi LEFT LOWER LOBE FLUID~Verbal to DR. AILIN BURROUGHS by [id number] at 1554 on 11/16/14.~Results read sravanthi LEFT LOWER LOBE FLUID~Verbal to DR. AILIN BURROUGHS by [id number] at 1554 on 11/16/14.~Results read sravanthi LEFT LOWER LOBE FLUID LEFT LOWER LOBE FLUID LEFT LOWER LOBE FLUID 9 RUN DATE: 11/15/14 [facility] LAB LIVE PAGE 1 RUN TIME: [address] [place] [address] Specimen Inquiry Name: REGGIE MENDOSA : [address]: Evelina Shelley MD Acct: [id number] Unit: [id number] AGE: 74 Location: OR Re11/14/14 SEX: M Status: REG [facility] SPEC: [id number] MICKEY: 11/14/14-[address] [facility] [address]: Evelina Shelley MD REQ: [id number] RECD: 11/14/14 STATUS: PARAG LEAVITT DR: Ailin [...] performed at Main Lab DEPARTMENT OF PATHOLOGY, [address] [place] [address] Niko Bryan M.D. Director [facility] # [id number] 10 RUN DATE: 11/17/14 [facility] LAB LIVE PAGE 1 RUN TIME: [address] [place], [place] [address] Specimen Inquiry Name: REGGIE MENDOSA : [address]: Evelina Shelley MD Acct: [id number] Unit: [id number] AGE: 74 Location: OR Re11/14/14 SEX: M Status: REG SDC SPEC: [id number] MICKEY: 11/14/14-[address] [facility] [address]: Evelina Shelley MD REQ: [id number] RECD: 11/14/14 STATUS: COMP OTHR DR: Ailin Burroughs MD _ SOURCE: MISC FLUID SPDESC:OTHER ORDERED: BF Cult/GS COMMENTS: LEFT LOWER LOBE FLUID Verbal to DR. AILIN BURROUGHS by [id number] at 1554 on 11/16/14. Results read back [...] at Main Lab DEPARTMENT OF PATHOLOGY, [facility] [employer] [place] [address] Niko Bryan M.D. Director [facility] # [id number] RUN DATE: 11/17/14 [facility] LAB LIVE PAGE 2 RUN TIME: [address] [place] [address] Specimen Inquiry Patient: REGGIE MENDOSA [id number] (Continued) Specimen: [id number] Collected: 11/14/14-1504 Received: 11/14/14-2018 (Continued) Procedure Result Verified Site Body Fluid [...] at Main Lab DEPARTMENT OF PATHOLOGY, [facility] [employer] [place], [place] [address] Niko Bryan M.D. Director [facility] # [id number] 11 RUN DATE: 11/28/14 [facility] LAB LIVE PAGE 1 RUN TIME: 1225 [facility] [employer] [place], [place] [address] Specimen Inquiry Name: REGGIE MENDOSA : [address]: Evelina Shelley MD Acct: [id number] Unit: [id number] AGE: 74 Location: [place] Re11/14/14 SEX: M Status: REG [facility] SPEC: [id number] MICKEY: 11/14/14-[address] [facility] [address]: Evelina Shelley MD REQ: [id number] RECD: 11/14/14 STATUS: RES OTHR DR: Ailin Burroughs MD _ SOURCE: MISC SOURC SPDESC:OTHER ORDERED: Fungal - Other COMMENTS: LEFT LOWER LOBE FLUID Procedure Result Verified Site Fungal Cult - Other Sources Preliminary 11/28/14- 1225 ML Organism 1 RUBÉN ALBICANS 1 COLONY ISOLATED OF 11/21/2014 END OF REPORT * ML=Testing performed at Main Lab DEPARTMENT OF PATHOLOGY, [facility] [employer] [place], [place] [address] Niko Bryan M.D. Director [facility] # [id number] 12 LEFT LOWER LOBE FLUID 13 RUN DATE: 12/04/14 [facility] LAB LIVE PAGE 1 RUN TIME: 1102 [facility] [employer] [place], [place] [address] Specimen Inquiry Name: REGGIE MENDOSA : [address]: Evelina Shelley MD Acct: [id number] Unit: [id number] AGE: 74 Location: OR Re11/14/14 SEX: M Status: REG SDC SPEC: [id number] MICKEY: 11/14/14-[address] [facility] [address]: Evelina Shelley MD REQ: [id number] RECD: 11/14/14-2018 STATUS: RES OT DR: Ailin Burroughs MD _ SOURCE: [facility] SOUR SPDESC:OTHER ORDERED: Fungal - Other COMMENTS: LEFT LOWER LOBE FLUID Procedure Result Verified Site Fungal Cult - Other Sources Preliminary 12/04/14- 1102 ML Organism 1 RUBÉN ALBICANS 1 COLONY ISOLATED OF 11/21/2014 END OF REPORT * ML=Testing performed at Main Lab DEPARTMENT OF PATHOLOGY, [facility] [employer] [place], [place] [address] Niko Bryan M.D. Director [facility] # [id number] 14 RUN DATE: 12/11/14 [facility] LAB LIVE PAGE 1 RUN TIME: 1222 [facility] [address] [place], [place] [address] Specimen Inquiry Name: REGGIE MENDOSA : [address]: Evelina Shelley MD Acct: [id number] Unit: [id number] AGE: 74 Location: [place] Re11/14/14 SEX: M Status: REG [facility] SPEC: [id number] MICKEY: 11/14/14-[address] [facility] [address]: Evelina Shelley MD REQ: [id number] RECD: 11/14/14 STATUS: COMP TREE DR: Ailin Burroughs MD _ SOURCE: MISC SOURC SPDESC:OTHER ORDERED: Fungal - Other COMMENTS: LEFT LOWER LOBE FLUID Procedure Result Verified Site Fungal Cult - Other Sources Final 12/11/14- 1222 L Organism 1 RUBÉN ALBICANS 1 COLONY ISOLATED OF 11/21/2014 END OF REPORT * ML=Testing performed at Main Lab DEPARTMENT OF PATHOLOGY, 39 [place] [id number] Niko Bryan M.D. Director [facility] # [id number] 15 SOURCE: LUNG, LEFT LOWER LOBE FLUID MYCOBACTERIAL CULTURE FINAL No Growth after 60 days of incubation. Test Performed by: [address] [address] Division Leader: Braydon Farr II, M.D., Ph.D. 16 RUN DATE: 11/16/14 [facility] LAB LIVE PAGE 1 RUN TIME: [address] [place] [id number] Specimen Inquiry Name: REGGIE MENDOSA : [address]: Evelina Shelley MD Acct: [id number] Unit: [id number] AGE: 74 Location: OR Re11/14/14 SEX: M Status: REG SDC SPEC: [id number] MICKEY: 11/14/14-[address] [facility] [address]: Evelina Shelley MD REQ: [id number] RECD: 11/14/14 STATUS: SOUT _ ORDERED: CYTO [...] performed at Main Lab DEPARTMENT OF PATHOLOGY, [address] [place] [address] Niko Bryan M.D. Director [facility] # [id number] 17 Because ethnic data is not always readily [...] 15-29 5 Kidney failure <15 (or dialysis) 18 Please note: Effective November 01, 2014, the reference value for this test has changed due to the validation and activation of a new reagent lot number. 19 Because ethnic data is not always readily [...] 15-29 5 Kidney failure <15 (or dialysis) 20 magnesium added 12/29/13 by [id number] 21 Because ethnic data is not always readily [...] 15-29 5 Kidney failure <15 (or dialysis) 22 Reference Range and Interpretation: TnI (ng/mL) Interpretation Less Than 0.03 ng/mL Not supportive of diagnosis of NC 0.03 - 0.50 ng/mL Indeterminate: suggest serial studies if clinically indicated. Greater than 0.5 ng/mL Consistent with diagnosis of NC 23 magnesium added 12/29/13 by [id number] 24 magnesium added 12/29/13 by [id number] 25 Desirable <150 Borderline high 150-199 High 200-499 Very High >500 26 Desirable <200 Borderline high 200-239 High >239 27 Low <40 Desirable: 40-60 High: >60 28 Desirable <100 Near Optimal 100-129 Borderline high 130-159 High 160-189 Very High >189 29 FEDERICO VALUE=2.00 ( OF 07/21/06) Recommended INR for Patients on Oral Anticoagulants Prophylaxis 2.0 - 3.0 Treatment of thrombosis 2.0 - 3.0 Prevention of embolism 2.0 - 3.0 Prevention of embolism from prosthetic heart valves 2.5 - 3.5 30 FEDERICO VALUE=2.00 ( OF 07/21/06) Recommended [...] prosthetic heart valves 2.5 - 3.5 32 FASTING 33 Classification: Desirable . 34 Classification: Low . 35 CALCULATED LDL APPROXIMATES THE VALUE OF A DIRECT LDL MEASUREMENT. Classification: Near or above optimal . 36 Anion gap measurement may be of limited value in the presence of any alkalosis, especially in a combined acid base disorder. . Procedures Date CPT Code Description Status 09/17/2017 15382 EKG Tracing & Interpretation Completed 05/11/2017 00418 Holter Monitor Review (24 hr)dr davis & interp Completed only 05/07/2017 19169 ECG Monitor/Recording W/Visual Superimposition Scanning Completed 05/07/2017 20585 ECG Monitor/Recording W/Visual Superimposition Scanning Completed 05/04/2017 08311 EKG Tracing & Interpretation Completed 10/29/2016 24730 Arthroplasty,Total Shoulder Replacement (TSR) Completed 10/29/2016 78470 Arthroplasty,Total Shoulder Replacement (TSR) Completed 09/15/2016 01959 EKG Tracing & Interpretation Completed 02/07/2016 09349 Mobile Cardiovascular Telemetry Over 24 HR Up To 30 Completed Days 02/04/2016 39382 EKG Tracing & Interpretation Completed 01/21/2016 99565 Pulmonary Function><Bronchodil Completed 01/21/2016 68465 Plethysmography Determination Lung Volumes & Per Completed Airway Resist 10/24/2015 19177 ECHO Transthorasic Realtime 2D W Doppler & Color Completed Flow Hosp 10/22/2015 55747 Treadmill Interp/Report Only Completed 10/22/2015 06039 Stress Test Supervsn W/Out I/R Completed 10/17/2015 59808 EKG Tracing & Interpretation Completed 04/05/2015 31623 EKG Tracing & Interpretation Completed 11/20/2014 81509 Diffusing Capacity Completed 11/20/2014 99171 Plethysmography Determination Lung Volumes & Per Completed Airway Resist 11/20/2014 28110 Pulmonary Stress Test Simple Completed 11/14/2014 34935 Bronchoscopy W/Transbronchial Lung Biopsy Completed 11/14/2014 84652 Bronchoscopy With Bronchial Alveolar Lavage Completed 11/14/2014 11450 bronchoscopy w/washing (hosp) Completed 04/25/2014 61147 EKG Tracing & Interpretation Completed 03/08/2014 63446 Repair Hernia Umbilical > 5 Yrs, Reducible Completed 02/14/2014 51170 Stress Test Completed 02/14/2014 64068 Myocardial Perfusion Imaging Tomographic (Spect) Completed Multiple Studies 02/06/2014 21599 Holter Monitoring 24 HR New Completed 01/12/2014 92495 EKG Tracing & Interpretation Completed 11/29/2013 33996 EKG Tracing & Interpretation Completed 05/24/2013 47747 EKG Tracing & Interpretation Completed 10/28/2012 10305 Carotid Doppler,Bilateral Completed 10/14/2012 21768 Holter Monitoring 24 HR New Completed 10/12/2012 95334 ECHO Transthoracic, Real-Time 2D With Doppler And Color Completed Flow 09/30/2012 57704 EKG Tracing & Interpretation Completed 01/28/2008 36573 Holter Monitor Completed 12/29/2007 19529 EKG Tracing & Interpretation Completed 12/29/2007 58837 EKG Tracing & Interpretation Completed 08/25/2007 01111 EKG Tracing & Interpretation Completed 08/25/2007 80754 EKG Tracing & Interpretation Completed 06/13/2007 25702 EKG, Interpretation Only Completed 06/12/2007 32062 EKG, Interpretation Only Completed 06/02/2007 71727 Stress Test Completed 06/02/2007 07765 Echocardiogram Completed 06/02/2007 93540 Echocardiogram Completed 06/02/2007 59624 Echocardiogram Completed 06/02/2007 86260 Pulse Doppler & Continuous Wave Completed 06/02/2007 73898 Pulse Doppler & Continuous Wave Completed 06/02/2007 02168 Color Doppler Completed 06/02/2007 19648 Color Doppler Completed 06/02/2007 49853 Color Doppler Completed 06/02/2007 39797 ECHO/Stress Completed 05/27/2007 51478 EKG Tracing & Interpretation Completed 03/22/2007 52437 EKG Tracing & Interpretation Completed 03/22/2007 65892 EKG Tracing & Interpretation Completed 03/08/2007 39661 Holter Monitor Completed 12/07/2006 14847 EKG Tracing & Interpretation Completed 10/13/2006 04551 Stress Test Completed 10/13/2006 73540 Stress Test Completed 10/13/2006 80918 ECHO/Stress Completed 10/06/2006 76477 EKG Tracing & Interpretation Completed 10/06/2006 78871 EKG Tracing & Interpretation Completed 09/09/2006 31595 Color Doppler Completed 09/09/2006 03836 Color Doppler Completed 09/09/2006 85463 Pulse Doppler & Continuous Wave Completed 09/09/2006 81157 Echocardiogram Completed 09/09/2006 28233 Holter Monitor Completed 09/09/2006 46209 Holter Monitor Completed 09/03/2006 13677 EKG Tracing & Interpretation Completed 09/03/2006 77856 EKG Tracing & Interpretation Completed 07/24/2006 89224 Selective Coronary Angioplasty Completed 07/24/2006 85822 S/I/R Inj Proc Vent And Or Atrial Completed 07/24/2006 95354 S/I/R Inj Proc Vent And Or Atrial Completed 07/24/2006 36181 Coronary Angiography Completed 07/24/2006 85488 Inj Proc LFT Vent/LFT Atrl Angio Completed 07/24/2006 56651 Inj Proc LFT Vent/LFT Atrl Angio Completed 07/24/2006 45940 Left Heart Catheterization Completed 07/24/2006 83199 EKG, Interpretation Only Completed 07/24/2006 12241 EKG, Interpretation Only Completed 07/21/2006 66964 Stress Test Completed 07/21/2006 10127 Stress Test Completed 07/21/2006 36763 Echocardiogram Completed 07/21/2006 59561 Echocardiogram Completed 07/21/2006 19354 Pulse Doppler & Continuous Wave Completed 07/21/2006 19563 Color Doppler Completed 07/21/2006 91598 Color Doppler Completed 07/21/2006 86163 ECHO/Stress Completed 07/20/2006 43975 EKG Tracing & Interpretation Completed 07/20/2006 90111 EKG Tracing & Interpretation Completed Encounters Type Date Location Provider CPT E/M Dx Office Visit 05/19/2017 9:00a [facility] [place] [address] Z96.612 C.M.A. Z47.1 Office Visit 05/04/2017 9:40a [facility] Chuy Hernandez M.D., 39518 I10 At [facility] I48.1 I25.10 Office Visit 03/13/2017 8:30a [facility] [place] [address] J44.9 Services Of Student Advisor R09.02 Z99.81 Office Visit 03/10/2017 9:15a [facility] [place] [address] Z96.612 Loly Z47.1 Office Visit 10/30/2016 9:48a [facility] Carolvicky Win, 62379 J44.9 Assoc,pc [facility] K74.60 I25.10 Z96.612 Office Visit 10/29/2016 9:47a [facility] Klever Kaplan, 22708 K74.60 Assoc,pc PA Hospitalists J44.9 I25.10 Z96.612 Office Visit 09/15/2016 9:20a [facility] Chuy Hernandez M.D., 60234 I25.10 Student Advisor At [facility] I48.2 I10 Z01.810 M19.012 Office Visit 09/12/2016 8:30a [facility] [place] [address] J43.9 Services Of Student Advisor J98.4 R09.02 E66.09 Office Visit 08/14/2016 9:45a [facility] [place] [address] M75.122 Loly M19.012 Office Visit 07/29/2016 8:30a [facility] Abundio George 97724 M75.122 Of Loly LIRIANO M19.212 Office Visit 06/16/2016 1:30p [facility] Abundio George 61248 M75.122 Of Loly LIRIANO S46.102A M75.42 Office Visit 06/12/2016 2:00p [facility] [place] [address] J43.9 Services Of Student Advisor J98.4 R09.02 Office Visit 03/31/2016 1:20p [facility] Chuy Hernandez M.D., 27609 I48.1 Student Advisor At [facility], [facility] I25.9 I47.2 R07.9 I25.10 Office Visit 02/04/2016 4:00p [facility] Chuy Hernandez M.D., 34260 R07.9 Student Advisor At [facility] I48.2 Office Visit 01/25/2016 11:30a [facility] [place] [address] J43.9 Services Of Student Advisor J98.4 R09.02 Office Visit 12/31/2015 8:30a [facility] [place] [address] J43.9 Services Of Student Advisor R06.02 E66.09 J98.4 Office Visit 10/26/2015 3:20p [facility] Chuy Hernandez M.D., 97333 I25.9 Student Advisor At [facility], [facility] I48.2 R06.02 I10 E66.9 Office Visit 10/17/2015 2:40p [facility] Chuy Hernandez M.D., 90350 R07.89 Student Advisor At [facility], [facility] I25.9 I10 I48.2 E78.5 Office Visit 04/05/2015 9:40a [facility] Chuy Hernandez M.D., 05486 414.9 Student Advisor At [facility], [facility] 401.9 272.4 427.31 Office Visit 02/19/2015 10:15a [facility] [place] [address] 492.8 Services Of Student Advisor 518.89 477.9 530.81 Office Visit 11/20/2014 10:00a [facility] [place] [address] 786.09 Services Of Student Advisor 492.8 477.9 530.81 518.89 Office Visit 11/01/2014 9:30a [facility] [place] [address] 786.09 Services Of Student Advisor 492.8 786.2 530.81 477.9 Office Visit 04/25/2014 2:45p [facility] Chuy Hernandez M.D., 58392 414.9 Student Advisor At [facility], [facility] 401.9 427.31 272.4 Office Visit 02/09/2014 2:30p [facility] Chuy Hernandez M.D., 08413 414.9 Student Advisor At [facility] 401.9 427.31 Office Visit 01/30/2014 3:30p [facility] Chuy Hernandez M.D., 04746 427.81 Student Advisor At [facility] 401.9 414.9 427.31 Office Visit 01/12/2014 3:30p [facility] Chuy Hernandez M.D., 61468 401.9 Student Advisor At [facility] 414.9 427.81 427.31 Office Visit 11/29/2013 2:30p [facility] Chuy Hernandez M.D., 23618 272.4 [facility] At [facility] 401.9 427.89 414.9 Office Visit 05/24/2013 3:00p [facility] Chuy Hernandez M.D., 13880 414.9 [facility] 272.4 Office Visit 11/09/2012 8:00a [facility] Chuy Hernandez M.D., 10819 414.9 [facility] 401.9 427.89 Office Visit 10/19/2012 3:15p [facility] Chuy Hernandez M.D., 51990 414.9 [facility] Office Visit 09/30/2012 3:15p [facility] Chuy Hernandez M.D., 66229 414.9 Student Advisor At [facility] 427.89 Office Visit 12/29/2007 11:20a [facility] Qutaybdiana SBerto Posey, 57933 414.01 M.D. V45.81 414.8 401.1 427.69 427.31 Office Visit 08/25/2007 10:40a [facility] Qutaybeh S. haydah, 38329 414.01 M.D. V45.81 427.31 414.8 401.1 414.04 Office Visit 05/27/2007 8:30a [facility] Qutaybdiana S. Kamilahydmarcie, 65540 414.01 M.D. 401.1 V45.81 414.8 Office Visit 03/22/2007 10:20a [facility] Sagar Posey, 68442 414.01 M.D. 401.1 427.31 Office Visit 12/07/2006 9:40a [facility] Sagar Posey, 31250 414.01 M.D. V45.81 Office Visit 10/13/2006 9:30a [facility] Sagar SBerto Posey, 75836 414.01 M.D. V45.81 401.1 794.31 414.04 Office Visit 10/06/2006 3:00p [facility] Sagar Torres. Kalpesh, 53698 414.01 M.D. 414.8 427.31 427.69 Office Visit 09/03/2006 11:00a [facility] Sagar Posey, 46362 414.01 M.D. V45.81 414.04 401.1 Office Visit 07/30/2006 9:10a [facility] Sagar Posey, 07546 414.01 M.D. 401.1 Office Visit 07/20/2006 10:20a [facility] Sagar Posey, 48508 401.1 M.D. 786.05 Plan of Care Future Appointment(s):09/30/2017 2:40 pm - Husam Nelson DO F[facility] at [facility]09/17/2017 - Husam Nelson DO FACCZ95.1 Presence of aortocoronary bypass graftNew Labs:Basic Metabolic PanelComments:I think your fluid retention is mostly from a combination of liver failure, kidney failure and a lowalbumin level (a protein the liver makes). Prednisone also causes fluid retention.For furosemide (lasix or water pill), Take 3 tablets by mouth every day until weight reaches 240 pounds on home scale then decrease to one tablet daily. If the weight continues to be above 240 pounds, you can take an extra 1 to 2 tablets of furosemide in addition to regular dose.For the time being, please stop taking losartan Have blood work checked in one weekFollow up: Please obtain last office note from Dr. Torres ([facility]), Dr. Bryson ( Radiology at [facility]), and Dr. Ordoñez (Pulmonary) Follow up week of 09/28K74.60 Unspecified cirrhosis of zpokrW61.9 Chronic kidney disease, unspecified
[2017-10-05 02:01] LABS: ABS Basophils 0 10^3/ul (0-0.2); ABS Eosinophils 0.2 10^3/ul (0-0.6); ABS Lymphocytes 0.1 10^3/ul (1.0-4.8); ABS Monocytes 0.4 10^3/ul (0-0.8); ABS Neutrophils 6.8 10^3/ul (1.5-7.7); ABS Nucleated RBC 0.01 10^3/ul; Eosinophil % 2.8 % (0-6); Hematocrit 35 % (42-52); Hemoglobin 12.7 g/dl (14.0-18.0); Lymphocyte % 1.8 % (25-47); Mean Corpuscular HGB Conc 36 g/dl (31-36); Mean Corpuscular Hemoglobin 32 pg (27-31); Mean Corpuscular Volume 89 fL (80-94); Mean Platelet Volume 7 um3 (7.4-10.4); Nucleated Red Blood Cells % 0.1; Platelet Count 133 10^3/ul (150-450); Red Blood Count 3.97 10^6/ul (4.0-5.4); Red Cell Distribution Width 17 % (10.5-15); White Blood Count 7.6 10^3/ul (3.5-10.8)
[2017-10-05 02:09] LABS: INR 1.24 (0.77-1.02)
[2017-10-05 02:15] LABS: EGFR Non-African American 17.8 (>60)
[2017-10-05] MEDS ORDERED: NS 0.9% 1000 ML* 1,000 ML IV SCH ×2 (02:45→13:45)
[2017-10-05] MEDS ORDERED: Ondansetron INJ* 2 MG/ML VIAL IV PRN (02:45)
[2017-10-05] MEDS ORDERED: Acetaminophen TAB* 325 MG PO PRN (02:45)
[2017-10-05] MEDS ORDERED: Potassium Chlor TAB* 10 MEQ TAB.ER PO ONE (02:49)
[2017-10-05] MEDS ORDERED: NS 0.9% w/ 40 Meq KCL 1000 ML* 1,000 ML IV SCH (03:00)
[2017-10-05 05:35] LABS: ABS Basophils 0 10^3/ul (0-0.2); ABS Eosinophils 0.1 10^3/ul (0-0.6); ABS Lymphocytes 0.1 10^3/ul (1.0-4.8); ABS Monocytes 0.2 10^3/ul (0-0.8); ABS Neutrophils 5.7 10^3/ul (1.5-7.7); ABS Nucleated RBC 0 10^3/ul; Eosinophil % 1.6 % (0-6); Hematocrit 32 % (42-52); Hemoglobin 11.4 g/dl (14.0-18.0); Lymphocyte % 2.4 % (25-47); Mean Corpuscular HGB Conc 35 g/dl (31-36); Mean Corpuscular Hemoglobin 32 pg (27-31); Mean Corpuscular Volume 90 fL (80-94); Mean Platelet Volume 7 um3 (7.4-10.4); Nucleated Red Blood Cells % 0; Platelet Count 114 10^3/ul (150-450); Red Blood Count 3.61 10^6/ul (4.0-5.4); Red Cell Distribution Width 17 % (10.5-15); White Blood Count 6.2 10^3/ul (3.5-10.8)
[2017-10-05] MEDS ORDERED: Potassium Chlor TAB* 20 MEQ TAB.ER PO ONE (05:50)
[2017-10-05] MEDS: Heparin VIAL(*) 5000 UNITS/ML VIAL (FIVE THOUSAND) SUBCUT SCH ×3 (06:18→20:36)
[2017-10-05 06:44] LABS: Urine Appearance Cloudy; Urine Blood 3+ (Negative); Urine Color Yellow; Urine Ketones Negative (Negative); Urine Protein Negative (Negative); Urine Specific Gravity 1.012 (1.010-1.030); Urine Urobilinogen Negative (Negative)
--- NOTE | 2017-10-05 08:45 | HP ---
Cc: Dr. Jesse Haywood * HISTORY AND PHYSICAL: DATE OF ADMISSION: 10/05/17 TIME OF MY EVALUATION: 3 a.m. PRIMARY CARE PROVIDER: Dr. Jesse Haywood, [facility]. CHIEF COMPLAINT: Shortness of breath/confusion. HISTORY OF PRESENT ILLNESS: Mr. Mendosa is a chronically ill 77-year-old gentleman with a complex medical history that will be detailed below. For the past week, the patient has been doing very poorly, eating less than normal becoming increasingly confused and apparently with increased shortness of breath. The patient was brought by fire rescue to the emergency room. On the way, he was in the 80s on low dose of oxygen (2 L nasal cannula) that he normally uses at home. He was placed on 4 L and was above 90%. He received DuoNebs and IV Decadron in the emergency room. The patient's respiratory status has generally been stable since arrival to the emergency room; however, he is profoundly confused. His significant other corroborates this and he was found to have acute uremic encephalopathy with an elevated BUN value of 112 up from his normal value in the high teens or perhaps 20. Of note, the the patient's bladder was scanned and he had almost 700 cc of urine retained. A Castanon was placed and his urine was drained without difficulty. There was minimal hematuria, but that was consistent with his history of prostate cancer status post radiation. The patient is being referred for admission for multiple electrolyte abnormalities and acute renal failure and uremic encephalopathy secondary to postobstructive acute on chronic renal failure. PAST MEDICAL HISTORY: 1. Hypertension. 2. COPD - night time oxygen of 2 L. 3. Prostate cancer - status post radiation. 4. Cirrhosis secondary to nonalcoholic steatohepatitis. 5. 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 6. Chronic atrial fibrillation - not anticoagulated secondary to variceal bleeding - followed by Dr. Chuy Hernandez. 7. Coronary artery disease, status post 5-vessel CABG. Last echo showing preserved ejection fraction with a fixed defect on Lexiscan in the inferior lateral wall. 8. Colon cancer - status post partial colectomy. 9. History of asbestosis exposure. 10. Left sigmoid partial colectomy. 11. History of tonsillectomy. 12. An umbilical hernia repair. 13. Esophageal ligations x4. 14. TIPS in March 2013. 15. Five vessel CABG in August 2006. 16. History of prostate biopsies, status post radiation. OUTPATIENT MEDICATIONS: 1. DuoNebs inhaled twice daily as needed. 2. Aspirin 81 mg by mouth daily. 3. Symbicort 1 puff inhaled twice daily. 4. Tums 500 mg as needed. 5. Fluticasone nasal spray 2 sprays both nares daily. 6. Furosemide 10 mg by mouth daily. 7. Imdur extended release 30 mg daily. 8. Lactulose 15 mL on Thursday, Thursday, and Thursday. 9. Losartan 50 mg by mouth daily. 10. Multivitamin 1 tablet by mouth twice daily. 11. Protonix 40 mg by mouth twice daily. 12. Spironolactone 50 mg by mouth daily. FAMILY HISTORY: Heart disease and stroke noted. SOCIAL HISTORY: The patient lives with his significant other. 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 He denies any ongoing alcohol consumption, was never a heavy drinker. The patient quit smoking in the year 1999 and had a 70-pack year history before then. He has 2 children. He is accompanied by his grandchild. REVIEW OF SYSTEMS: A review of 14 systems was accomplished at the bedside and is largely negative except for the pertinent positives mentioned above in the HPI and past medical history. PHYSICAL EXAMINATION GENERAL APPEARANCE: Elderly man, appears stated age or older, chronically ill appearing. VITAL SIGNS: On admission, temperature 97.7 degrees Fahrenheit, pulse in the 60s to 70s and regular, respirations high teens to 20s and unlabored on oxygen. He is saturating in the mid 90s (4 L), blood pressure 100s to one-teens over 30s to 40s. HEENT: Oropharynx is clear. Mucous membranes are moist. Pupils equal, round, and reactive to light and accommodation. Poor eye tracking, altered mental status certainly. NECK: Supple, no elevated JVD. Midline trachea. Normal thyroid. No carotid bruits appreciated. CHEST: Clear but distant breath sounds anteriorly on both sides. HEART: Irregular and rate controlled. No murmurs appreciated. Midline sternal scar noted. ABDOMEN: Obese but nontender. Bowel sounds present. SKIN: Dry and intact without rashes, lesions, or breakdown. The patient has a Castanon in place draining clear yellow urine to gravity. The patient has got his feet flung over the side of the gurney in the emergency room. He is poorly cooperating. He follows commands and then tries to get up again despite being told repeatedly not to. So psych and neuro are unable to be fully evaluated secondary to his current mental status. ADMISSION DATA: Sodium depressed at 132, potassium depressed at 3.1, chloride depressed at 89, bicarb elevated at 34, BUN elevated 112 compared to most recent value on 09/24/17 of 30 and his value back in 06/17/17 at 15. Creatinine 3.38 compared to 1.46 in middle to late September and in June of 2017 of 1.14. Glucose 143, lactic acid elevated 2.3 (poor renal function; confounded value). Total bilirubin elevated at 1.6. AST and ALT are 86 and 20, respectively. Alk phos 380. Ammonia level is pending. Troponin 0.06 (renal failure), BNP 210, total protein and albumin are 5.3 and 2.5, respectively. Influenza A and B negative. Chest x-ray shows hyperinflated lungs. No focal infiltrates. IMPRESSION: Mr. Mendosa is a complicated 77-year-old gentleman with post obstructive uremia, uremic renal failure with an elevation of his creatinine from the 1s to above 3 and an elevation of his BUN from high-teens to well over 100. The patient will have a Castanon catheter placed. I will watch him closely for postobstructive diuresis. The patient is seemingly hypovolemic with a low sodium, low potassium, and elevated BUN and creatinine, although his chest x- ray shows if anything fluid overload. Again we will watch for postobstructive diuresis. We will match his fluid output with intake. No sign of worsening respiratory function at this time. The patient has profound hypokalemia and this will be repleted. The patient will be placed in a monitored setting and may need a room sitter secondary to his lack of cooperativity. Other medications will be continued if the patient can tolerate. Further decisions will be based on clinical progress. TIME SPENT: Total time taken to admit Mr. Mendosa was 75 minutes, greater than half that time was spent going over the history and physical examination at the beside and explaining the hospital plan of care to the patient, significant other, and grandson. [id number]/[facility] #: [id number] [facility]
--- NOTE | 2017-10-05 08:50 | RAD ---
Indication: Shortness of breath. Comparison: January 09, 2017 Technique: Upright AP 0102 hours Report: Cardiomegaly, prominent ill-defined central pulmonary vasculature, perihilar and lower lung zone patchy alveolar opacities, diffuse prominence of interstitial markings, small pleural effusions. Median sternotomy wires. Prosthetic LEFT glenohumeral joint. IMPRESSION: Alveolar and interstitial pulmonary edema with associated small effusions.
[2017-10-05] MEDS ORDERED: Levalbuterol 1.25MG/0.5ML NEB ONE (10:30)
[2017-10-05] MEDS ORDERED: Albuterol/Ipratropium NEB.SOL* Albuterol 2.5 MG/Ipratropium 0.5 MG 3 ML ONE (10:32)
[2017-10-05] MEDS: Albuterol/Ipratropium NEB.SOL* Albuterol 2.5 MG/Ipratropium 0.5 MG 3 ML INH ONE ×2 (10:33→10:38)
--- NOTE | 2017-10-05 12:53 | PN ---
Subjective Date of Service: 10/05/17 Interval History: Patient seen and examined at bedside. He is confused and not responding appropriately to questions; he responds no when asked if he is short of breath or having pain. He persistently complaints that he has to urinate, even though he has a urinary catheter. Catheter notably has blood in the bag. Patient is tachypneic but otherwise does not appear to be in significant distress and responds to his environment. Family History: Unchanged from Admission Social History: Unchanged from Admission Past Medical History: Unchanged from Admission Objective Active Medications: Acetaminophen (Tylenol Tab*) 650 mg PO Q4H PRN PRN Reason: FEVER/PAIN Heparin Sodium (Porcine) (Heparin Vial(*)) 5,000 units SUBCUT Q8HR [facility] Last Admin: 10/05/17 06:18 Dose: 5,000 units Lactulose (Lactulose*) 30 ml PO QID [facility] Last Admin: 10/05/17 09:01 Dose: 30 ml Ondansetron HCl (Zofran Inj*) 4 mg IV Q4H PRN PRN Reason: NAUSEA/VOMITING Vital Signs - 8 hr 10/05/17 10/05/17 07:35 08:00 Temperature 97.7 F Pulse Rate 62 Respiratory 24 24 Rate Blood Pressure 138/51 (mmHg) O2 Sat by Pulse 90 90 Oximetry Oxygen Devices in Use Now: Nasal Cannula Appearance: Elderly male, sitting up in bed, tachypneic Eyes: No Scleral Icterus, PERRLA Ears/Nose/Mouth/Throat: Clear Oropharnyx, - - oral mucosa tacky Neck: NL Appearance and Movements; NL JVP Respiratory: Symmetrical Chest Expansion and Respiratory Effort, - - expiratory wheezing, rhonchi throughout Cardiovascular: - - irregularly irregular, 2+ pitting edema from ankles to thighs Abdominal: - - abdomen firm, distended, bowel sounds hypoactive Neurological: - - Alert, oriented to self, with confusion Lines/Tubes/Other Access: Clean, Dry and Intact Castanon - hematuria, Clean, Dry and Intact Peripheral IV Nutrition: Taking PO's Result Diagrams: 10/05/17 05:00 10/05/17 17:16 Assess/Plan/Problems-Billing Assessment: Mr. 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 - Patient Problems (1) Encephalopathy Code(s): G93.40 - ENCEPHALOPATHY, UNSPECIFIED Comment: Metabolic, secondary to uremia and elevated ammonia Continue lactulose for hepatic encephalopathy Gentle hydration for acute on chronic renal failure Recheck BMP and continue to follow Baseline - patient is alert and oriented (2) Increased ammonia level Code(s): R79.89 - OTHER SPECIFIED ABNORMAL FINDINGS OF BLOOD CHEMISTRY Comment : Secondary to MORROW and chronic liver failure Continue lactulose Patient apparently was decreased from daily dosing to three times a week. (3) Obstructive uropathy Code(s): N13.9 - OBSTRUCTIVE AND REFLUX UROPATHY, UNSPECIFIED Comment: Post obstructive uropathy Plan to check CT scan Castanon catheter - currently with scant drainage Patient appears hypovolemic - plan for 500 mL bolus and IVF and monitor diuresis Follow BMP (4) CAD (coronary artery disease) Code(s): I25.10 - ATHSCL HEART DISEASE OF [place] CORONARY ARTERY W/O ANG PCTRS Comment: Stable Resume home meds when able to safely swallow PO meds (5) COPD (chronic obstructive pulmonary disease) Code(s): J44.9 - CHRONIC OBSTRUCTIVE PULMONARY DISEASE, UNSPECIFIED Comment: Stable Continue O2, prn nebulizers (6) Chronic a-fib Code(s): I48.2 - CHRONIC ATRIAL FIBRILLATION Comment: Rate controlled Pt is not anticoagulated d/t history of variceal bleeds (7) Chronic liver failure Code(s): K72.10 - CHRONIC HEPATIC FAILURE WITHOUT COMA Comment: Secondary to cirrhosis, secondary to nonalcoholic steatohepatitis. Continue lactulose (8) HTN (hypertension) Code(s): I10 - ESSENTIAL (PRIMARY) HYPERTENSION Comment: Normotensive Resume home meds when able to safely take PO (9) DVT prophylaxis Comment: SQ heparin Status and Disposition: Inpatient admit. LOS > 2 days.
[2017-10-05] MEDS ORDERED: NS 0.9% 500 ML* 500 ML IV ONE (13:35)
--- NOTE | 2017-10-05 14:06 | PN ---
Hospitalist Progress Note Date of Service: 10/05/17 Patient's family arrived (daughter Vivian). Discussed plan of care and current findings. Vivian reports, at baseline, Mr. Mendosa is AOx4 and independent in care at home. He was last seen at his baseline approx 4 days ago. She notes that 2-3 days ago, he became more sleepy, progressing to increasing confusion. It is unclear if the patient's hematuria is new. In regards to his respiratory status, she states that this has been an ongoing issue since July. He has had medication adjustments with his diuretics and is now on torsemide and metolazone per cardiology. He has had slow weight loss and improvement in overall anarsarca. He still has concern for abdominal distention and BLE edema. Family requested Dr. Bryson (radiologist/hepatobiliary specialist) at [facility] be notified of patient's hospitalization; physician not available today but will contact tomorrow. Plan for careful IVF, repeat labs, CT scan this afternoon. Plan for catheter flush now and qshift flushes. Additional 35 minutes spent on this visit.
--- NOTE | 2017-10-05 17:06 | RAD ---
INDICATION: Obstructive renal failure. Uremic encephalopathy. Status post TIPS. Post sigmoid resection and ventral hernia repair. COMPARISON: July 15, 2013 CT. TECHNIQUE: Multidetector CT images were obtained from the lung bases to the ischial tuberosities. Oral contrast administered. Assessment of the visceral limited without IV contrast. REPORT: Bilateral small dependent pleural effusions. Basilar atelectasis including probable rounded atelectasis at the posterior basal segment of the LEFT lower lobe. Cardiomegaly contributes to pulmonary volume loss. Negative for pericardial effusion. TIPS catheter in place. Cirrhotic morphology liver. No focal liver lesion evident within limits of noncontrast CT. Cholelithiasis without additional CT abnormality of the gallbladder. Mild prominence of the common bile duct without visualized common bile duct stone. Unremarkable pancreas. Mild splenomegaly. Small hiatal hernia. Negative for additional abnormality of the upper GI, small bowel, or appendix visualized along the RIGHT pelvic sidewall. Diffuse gas distention of the colon with few fluid levels. No colonic wall thickening or focal lesion evident. Negative for pericolonic inflammatory change. Small volume of predominant perihepatic ascites. Negative for free air or significant hernias. Normal adrenal glands. Moderately severe RIGHT and severe LEFT pelvocaliectasis and less marked ureteral dilatation. Small probable vascular calcification at the upper pole of the RIGHT kidney. No definitive urolithiasis. Catheterized urinary bladder is partially distended and remarkable for heterogeneous density content suspicious for hematoma or possibly infectious debris. Symmetric seminal vesicles. Retrocrural and periaortic innumerable borderline enlarged lymph nodes new compared with the prior exam with dominant 1.3 cm short axis RIGHT retrocrural node. Normal diameter abdominal aorta and iliac arteries with atherosclerotic calcification. Decompressed IVC indicating low volume state. Lumbar sacral spine degenerative spondylosis and facet joint osteoarthritis. Negative for suspicious focal osseous lesions. IMPRESSION: 1. Cirrhotic liver morphology. TIPS catheter in place. Small predominant perihepatic ascites. Mild splenomegaly without change. 2. Diffuse gas distention of the colon without evidence for obstructing lesion or associated small bowel dilatation most suspicious for colonic ileus. 3. Bilateral obstructive uropathy likely secondary to the ureterovesicular junction stenosis or bladder outlet obstruction. Catheterized urinary bladder is partially distended and remarkable for heterogeneous density content suspicious for hematoma or possibly infectious debris. 4. Mild retrocrural and periaortic lymphadenopathy. 5. Decompressed IVC favoring lower volume state.
[2017-10-05 17:36] LABS: EGFR Non-African American 20.1 (>60)
[2017-10-05] MEDS ORDERED: Albuterol 2.5 MG/3 ML NEB.SOL* (0.083%) INH PRN (17:57)
--- NOTE | 2017-10-05 19:57 | PN ---
Hospitalist Progress Note Date of Service: 10/05/17 Patient seen at 1810. He is resting comfortably, RR 20-22, and on 2.5Lnc. With current renal function, plan to continue to hold on furosemide unless respiratory status worsens; patient has maintained at 2-3Lnc today. Diuresis improved once catheter advanced; CT abd/pelvis taken just after catheter repositioned. Plan to follow up with renal ultrasound in the AM. Plan of care discussed and reviewed with attending, Dr. Vazquez.
[2017-10-06] MEDS: Heparin VIAL(*) 5000 UNITS/ML VIAL (FIVE THOUSAND) SUBCUT SCH ×2 (04:54→14:40)
[2017-10-06 06:05] LABS: ABS Basophils 0 10^3/ul (0-0.2); ABS Eosinophils 0.2 10^3/ul (0-0.6); ABS Lymphocytes 0.3 10^3/ul (1.0-4.8); ABS Monocytes 0.9 10^3/ul (0-0.8); ABS Nucleated RBC 0.03 10^3/ul; Eosinophil % 1.3 % (0-6); Hematocrit 36 % (42-52); Hemoglobin 12.3 g/dl (14.0-18.0); Lymphocyte % 2.1 % (25-47); Mean Corpuscular HGB Conc 35 g/dl (31-36); Mean Corpuscular Hemoglobin 31 pg (27-31); Mean Corpuscular Volume 90 fL (80-94); Mean Platelet Volume 6 um3 (7.4-10.4); Nucleated Red Blood Cells % 0.2; Platelet Count 185 10^3/ul (150-450); Red Blood Count 3.96 10^6/ul (4.0-5.4); Red Cell Distribution Width 17 % (10.5-15); White Blood Count 13.4 10^3/ul (3.5-10.8)
[2017-10-06 06:20] LABS: EGFR Non-African American 19.3 (>60)
--- NOTE | 2017-10-06 08:22 | PN ---
Subjective Date of Service: 10/06/17 Interval History: Patient seen and examined at bedside. I was called to bedside by nursing, as the patient has not been verbalizing. He does still tug at his su and is very fidgety but is unable to follow basic commands. AM ammonia is 189, which is increased from previous. BUN/Creatinine with no improvement. Mr Mendosa is unable to offer any verbalization but does respond to noxious stimuli. Catheter draining bloody urine. Left message with Vivian, patient's HCP and daughter. Discussed POC and prognosis with Flory. Family History: Unchanged from Admission Social History: Unchanged from Admission Past Medical History: Unchanged from Admission Objective Active Medications: Acetaminophen (Tylenol Tab*) 650 mg PO Q4H PRN PRN Reason: FEVER/PAIN Albuterol (Ventolin 2.5 Mg/3 Ml Neb.Nurys*) 2.5 mg INH Q4H PRN PRN Reason: SOB/WHEEZING Last Admin: 10/05/17 19:08 Dose: 2.5 mg Device (Tiotropium Inhaler Device*) 1 each INH 0900 ONE Stop: 10/06/17 09:01 Heparin Sodium (Porcine) (Heparin Vial(*)) 5,000 units SUBCUT Q8HR [facility] Last Admin: 10/06/17 04:54 Dose: Not Given Lactulose (Lactulose*) 30 ml PO QID [facility] Last Admin: 10/05/17 20:35 Dose: Not Given Lactulose (Lactulose 300 Ml For Pr*) 200 gm [place] QID [facility] Ondansetron HCl (Zofran Inj*) 4 mg IV Q4H PRN PRN Reason: NAUSEA/VOMITING Tamsulosin HCl (Flomax Cap*) 0.4 mg PO DAILY [facility] Tiotropium [place] (Spiriva Cap.Inh*) 1 cap INH DAILY [facility] Vital Signs - 8 hr 10/06/17 10/06/17 00:24 04:29 Temperature 97.7 F O2 Sat by Pulse 94 Oximetry Oxygen Devices in Use Now: Nasal Cannula Appearance: Elderly male, obtunded/encephalopathic Eyes: No Scleral Icterus, PERRLA Ears/Nose/Mouth/Throat: Clear Oropharnyx, - - mucous membranes dry Neck: NL Appearance and Movements; NL JVP Respiratory: Symmetrical Chest Expansion and Respiratory Effort, - - expiratory wheezing, tachypnea, fine crackles in bases Cardiovascular: NL Sounds; No Murmurs; No JVD, RRR, - - 2+ pitting edema BLE Abdominal: - - firm, distended abd, BS present Neurological: - - does not follow commands, obtunded Lines/Tubes/Other Access: Clean, Dry and Intact Su - hematuria, Clean, Dry and Intact Peripheral IV Result Diagrams: 10/06/17 05:46 10/06/17 05:46 Assess/Plan/Problems-Billing Assessment: Mr. 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 - Patient Problems (1) Encephalopathy Code(s): G93.40 - ENCEPHALOPATHY, UNSPECIFIED Comment: Metabolic, secondary to uremia and elevated ammonia Plan for NGT to continue lactulose Patient appears intravascularly dry - plan for continued hydration for renal failure May need furosemide if respiratory status continues to decline but will try to avoid, given renal function. Baseline - patient previously alert and oriented, independent (2) Increased ammonia level Code(s): R79.89 - OTHER SPECIFIED ABNORMAL FINDINGS OF BLOOD CHEMISTRY Comment : Secondary to MORROW and chronic liver failure Continue lactulose; insert NGT, as patient unable to swallow Patient apparently was recently decreased from daily dosing to three times a week secondary to frequent diarrhea at home. (3) Acute on chronic renal failure Code(s): N17.9 - ACUTE KIDNEY FAILURE, UNSPECIFIED; N18.9 - CHRONIC KIDNEY DISEASE, UNSPECIFIED Comment: Suspect hepatorenal syndrome and post obstructive uropathy Appreciate nephrology consult Plan to continue gentle IVF, start midodrine Check FENa (4) Obstructive uropathy Code(s): N13.9 - OBSTRUCTIVE AND REFLUX UROPATHY, UNSPECIFIED Comment: Post obstructive uropathy CT scan concerning for bilateral obstructive uropathy; plan to check renal US this AM Su catheter advanced last evening prior to CT and is now draining bloody urine Suspect patient is intravascularly dry secondary to decreased PO intake and diuretics. Continue gently IV hydration Follow BMP Appreciate nephrology consult (5) CAD (coronary artery disease) Code(s): I25.10 - ATHSCL HEART DISEASE OF [place] CORONARY ARTERY W/O ANG PCTRS Comment: Stable Resume home meds when able to safely swallow PO meds (6) COPD (chronic obstructive pulmonary disease) Code(s): J44.9 - CHRONIC OBSTRUCTIVE PULMONARY DISEASE, UNSPECIFIED Comment: Stable Continue O2, prn nebulizers (7) Chronic a-fib Code(s): I48.2 - CHRONIC ATRIAL FIBRILLATION Comment: Rate controlled Pt is not anticoagulated d/t history of variceal bleeds (8) Chronic liver failure Code(s): K72.10 - CHRONIC HEPATIC FAILURE WITHOUT COMA Comment: Secondary to cirrhosis, secondary to nonalcoholic steatohepatitis. Continue lactulose (9) HTN (hypertension) Code(s): I10 - ESSENTIAL (PRIMARY) HYPERTENSION Comment: Normotensive Resume home meds when able to safely take PO (10) DVT prophylaxis Comment: SQ heparin Status and Disposition: Inpatient admit. LOS > 2 days. Prognosis guarded.
--- NOTE | 2017-10-06 08:44 | RAD ---
Indication: Shortness of breath. Single frontal view of the chest performed at 0810 hours was reviewed. Comparison is made with previous exam dated October 05, 2017. No mediastinal shift is noted. Heart is of normal size and configuration. Interstitial edema with bibasilar atelectasis and bilateral pleural effusions are noted. This appears to be similar to that seen on October 05, 2017.. IMPRESSION: PERSISTENT CHF WITH BILATERAL PLEURAL EFFUSION AND INTERSTITIAL EDEMA.
[2017-10-06] MEDS ORDERED: NS 0.9% 1000 ML* 1,000 ML IV SCH ×2 (08:45→18:26)
[2017-10-06] MEDS: CMC Midodrine (NF) 5 MG TAB PO SCH ×2 (09:00→14:40)
[2017-10-06] MEDS ORDERED: Tiotropium CAP.INH* CAP.INH/18 MCG (USE ORDER SET !) INH SCH (09:00)
[2017-10-06] MEDS ORDERED: Spiriva Inhaler DEVICE* 1 EACH DEVICE INH ONE (09:00)
[2017-10-06] MEDS ORDERED: Lactulose 300 ML for PR* 10 GM/15 ML BTL PR SCH (09:00)
[2017-10-06] MEDS ORDERED: Tamsulosin CAP* 0.4 MG PO SCH (09:00)
--- NOTE | 2017-10-06 09:36 | RAD ---
Indication: Post obstructive uropathy. Real-time sonography of the kidneys was performed. The right kidney measures 12.3 x 5.3 x 5.8 cm. Right hydronephrosis is noted. The left kidney measures 12.7 x 6.5 x 5.4 cm. Left hydronephrosis is noted. A Castanon catheter is in place. The degree of surrounding the Castanon catheter. The hematoma is not excluded. IMPRESSION: Bilateral hydronephrosis is noted.
--- NOTE | 2017-10-06 12:07 | RAD ---
Indication: NG tube placement. Single frontal view of the chest performed at 1040 was reviewed. Comparison is made with previous exam dated October 06, 2007 earlier the same day. Cardiomegaly is noted. Interstitial edema with peribronchial thickening and cephalization persists. Patient is status post tracer thoracotomy. Nasogastric tube is below the diaphragm. IMPRESSION: NASOGASTRIC TUBE BELOW THE DIAPHRAGM. INTERSTITIAL EDEMA PERSISTS.
[2017-10-06 14:23] LABS: EGFR Non-African American 17.7 (>60)
--- NOTE | 2017-10-06 17:59 | RAD ---
Indication: Nasogastric tube placement. Comparison: 1033 hours exam of the same date. Technique: Upright AP 1725 hours Report: Tip of the nasogastric tube is at the level of the gastric body. Cardiomegaly, prominent ill-defined central pulmonary vasculature, bilateral alveolar and interstitial opacities with thickened peripheral interlobular septa and small pleural effusions. Median sternotomy wires and mediastinal and epigastric surgical clips. IMPRESSION: Nasogastric tube tip at level of gastric body. Persistent finding of alveolar and interstitial pulmonary edema with small pleural effusions.
[2017-10-06] MEDS ORDERED: Scopolamine 1.5 mg* PATCH TRANSDERM SCH (18:00)
[2017-10-06] MEDS ORDERED: NS 0.9% 500 ML* 500 ML IV ONE (18:28)
--- NOTE | 2017-10-06 18:45 | PN ---
Hospitalist Progress Note Date of Service: 10/06/17 30 minutes spent in meeting with family at 1000: discussed POC with daughter and ex-, who is in agreement. Patient's daughter also met with Dr. Gallagher who discussed guarded prognosis. Called Dr. Bryson at [facility] to notify him of patient's status. Additional 30 minutes spent with family at 1400: POC reviewed with other family members and close family friends. Patient at this time is more obtunded and unresponsive to most stimuli. NGT later assessed in the afternoon; removed by myself secondary to clogged tube. Plan to reinsert tube to continue lactulose treatment; family in agreement. Called to bedside at 1700: Discussed POC with daughter, who returned to bedside , and is accompanied by . Dr. Dias consulted at this time; recommendations from GI to continue lactulose and to continue hydration as aggressively as patient can tolerate. Called daughter on phone at 1850 with concern for patient's respiratory status and lack of response to treatment. We discussed transitioning the patient to comfort care, given the patient's increased respirations and agitation. Vivian, patient's daughter, would like to discuss options with her brother and stepmother; Vivian is the HCP. Currently, she is in agreement with utilizing morphine for comfort. We discussed the patient's poor response to treatment; she will discuss these changes with family and call back with decision to transition to comfort care, if that is decided on. Plan for IV morphine now and prn morphine as needed. Continue hydration and lactulose for now. Total of 90 minutes spent in additional time with family and in review of POC.
[2017-10-06] MEDS ORDERED: Morphine INJ* 2 MG/ML 1 ML SYRINGE (TWO MG - NEW SYRINGE VERSION) IV ONE (18:49)
[2017-10-06] MEDS ORDERED: Acetaminophen SUPP* 650 MG SUPP PR PRN (19:24)
--- NOTE | 2017-10-06 19:31 | PN ---
Hospitalist Progress Note Date of Service: 10/06/17 Daughter/HCP Vivian called. She expressed wishes to move to comfort care measures. Discussed keeping catheter but discontinuing NGT and lactulose at this time. Comfort care measures implemented. Copy of MOLST on chart - reviewed with HCP. Patient is DNR/DNI. Plan for palliative care consult tomorrow. Anticipate within 24-48 hours.
--- NOTE | 2017-10-06 21:55 | CONS ---
GASTROENTEROLOGY CONSULT: DATE: 10/06 CONSULTING PRACTITIONER: Sybil Garay NP REASON FOR CONSULTATION: Severe hepatic encephalopathy in a man who had a TIPS procedure 4 years ago because of recurring variceal bleeds. HISTORY: This 77-year-old man was admitted yesterday with worsening renal function and initially it was felt that this was secondary to obstructive uropathy as he had a distended bladder on CT and a fair amount of diuresis when a catheter was placed. Despite continuing flow from the catheter, there have been some issues. He pulled on his catheter and the output thereafter has been bloody. Has a prior history of prostate radiation. CT scan showed a possibility of bilateral UPJ obstruction, but also decompressed inferior vena cava. Since admission, his BUN had continued to rise from 112 to 135 and his creatinine has gone from 3.38 up to 3.40. His mental status has deteriorated and his ammonia that was initially 191 after a slight diminution has gone up to 254. There is concern also about COPD and his cardiac status. PAST MEDICAL HISTORY: 1. Cirrhosis secondary to MORROW with history of multiple variceal bleeds and then TIPS procedure in 2012 in [place]. 2. Recurring hepatic encephalopathy - placed on lactulose after the TIPS procedure. It is said that his encephalopathy had been well managed with the lactulose taken chronically the last 3 to 4 years. He has been followed by Dr. Torres at [place] following Dr. Arias's correction. 3. Status post prostate radiation for cancer. 4. COPD - quit smoking more than 10 years ago. 5. Hypertension. 6. History of partial colectomy for colon cancer. 7. Umbilical hernia repair. 8. History of asbestos exposure. 9. Coronary artery disease, status post 5-vessel bypass, August 2006. OUTPATIENT MEDICINES: 1. Lactulose 15 mL Thursday, Thursday, Thursday. 2. Protonix 40 mg b.i.d. 3. Spironolactone 50 mg daily. 4. Furosemide 10 mg daily. 5. Aspirin 81 mg. SOCIAL HISTORY: He lives with his second . 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 REVIEW OF SYSTEMS: In 2013 because of dyspepsia, he had upper endoscopy showing no sign of varices, portal hypertensive gastropathy. There was a gastric fundal AVM. He was followed by a [place] alterations manager, with shortness of breath being attributed to COPD, although approximately a month ago they switched to Dr. Husam Nelson. There is no history of renal stones, viral hepatitis, psoriasis, CVA, syncope, recent angina or change in diet. PHYSICAL EXAMINATION: He is a chronically ill-appearing man in bed with a Castanon catheter draining bloody urine. He is nonresponsive, breathing heavily with lots of airway mucus. Breath sounds are equal, but with many rhonchi. He is anicteric. He has no adenopathy. Heart sounds are irregular, but strong. There is no murmur. The abdomen has a well-healed midline scar without any hernia. The abdomen is firm without obvious tenderness, though his mental status precludes analysis. Extremities showed no edema. LABORATORY DATA: Labs today, CBC: Hemoglobin 12.3; hematocrit 36; white count 13.4, up from 7.6 on admission; platelets 185,000. INR 1.24. Albumin 2.3 whereas his baseline is generally in the low 3's. BNP 210. Sodium 135, potassium 3.7. BUN 135, creatinine 3.40. Celiac panel, 07/15/17, showed negative tTG-IgA. Influenza serology was negative. IMPRESSION: Severe hepatic encephalopathy which at this time is mostly secondary to TIPS worsening a situation whereby routine hypovolemic and obstructive renal failure, is stressing his liver. Lactulose administration via NG is indicated until such time as his cardiopulmonary situation can be stabilized and hopefully his renal function improved by encountering better cardiac output. Sum total of all of those problems may make that unachievable. [id number]/[facility] #: [id number] MTDD
--- NOTE | 2017-10-06 22:37 | CONS ---
CONTNUATION ADDENDUM NOW INCLUDED ON THIS REPORT CC: Dr. Haywood * NEPHROLOGY CONSULTATION REPORT: DATE OF CONSULT: HISTORY OF PRESENT ILLNESS: Mr. Mendosa is a 77-year-old gentleman with a history of nonalcoholic steato-hepatitis. He had been doing poorly prior to admission. He had become confused, disoriented, anorexia. He was not eating well. He was not drinking well. He appeared to be short of breath. He presented to the emergency room where he was found to have an elevated BUN and creatinine ratio. A Castanon catheter was placed, which revealed 700 cc of urine, which he subsequently developed gross hematuria. He is obtunded. He has minimal response to stimulation, but does not answer questions well. He was examined in the presence of his daughter and his ex-. The history is taken mostly from them and the medical record. His previous medical history is significant for nonalcoholic steatohepatitis hepatitis. He is status post TIPS procedure. He has a history of coronary artery disease and status post 5- vessel coronary artery bypass grafting. He has a history of chronic atrial fibrillation. He has a history of esophageal varices. He is status post history of prostate cancer and had radiation therapy. He has a history of COPD. He is status post partial colectomy for colon cancer. He has a history of an umbilical hernia repair. He has had esophageal ligations x4. MEDICATIONS: Included: 1. DuoNebs twice daily as required. 2. Aspirin 81 mg daily. 3. Symbicort 1 puff twice daily. 4. Tums 500 mg as required. 5. Fluticasone nasal spray 2 puffs both nostrils daily. 6. Furosemide 10 mg daily. 7. Imdur extended release 30 mg daily. 8. Lactulose 15 mL Thursday, Thursday, and Thursday. This dose has been increased in the hospital. 9. Losartan 50 mg daily. 10. Multivitamins 1 twice a day. 11. Protonix 40 mg daily. 12. Spironolactone 50 mg daily. FAMILY HISTORY: He has a family history of stroke and heart disease. SOCIAL HISTORY: Significantly denies alcohol consumption in the chart. This is confirmed by his daughter. REVIEW OF SYSTEMS: Unobtainable. PHYSICAL EXAM: He is an elderly chronically ill-appearing white gentleman. He is afebrile. His blood pressure is 140/41 with pulse of 100, respiratory rate of 28. CONTINUATION ADDENDUM: PHYSICAL EXAM: He is obtunded and barely responsive. His pupils are spontaneously reactive to light. He is surprisingly anicteric. His mucous membranes are moist. His chest is clear. The heart revealed a regular rhythm without murmurs. The abdomen is distended. There is a positive fluid wave. I could not feel his liver margin. He had some palmar erythema. There was no spider angiomata noted. His Castanon catheter bag had what appeared to be gross blood in it. DIAGNOSTIC STUDIES/LAB DATA: A review of his laboratory studies reveals a sodium of 135, potassium 3.7, total CO2 30, chloride 94, BUN 135, creatinine 3.4. His AST is 80 with an ALT of 18. IMPRESSION: Acute renal failure. This is most likely due to intravascular volume depletion. His fractional excretion of sodium was 0.9. Discussion in cirrhosis, there is the opening of peripheral arteriovenous channels, which are typically closed. This produces a prerenal state. The kidneys then respond by attempting to retain salt and water. I would recommend that we start him on midodrine 5 mg t.i.d., the dose will probably need to be sequentially increased. I have discussed the case with Sybil Garay. [id number]/[facility] #: [id number]/[facility] #: [id number] MTDEric
[2017-10-06] MEDS: Atropine 1% (ORAL/SL)* 15 ML BTL SL PRN (23:42)
[2017-10-06] MEDS: Morphine ORAL CONCENTRATE* 5 MG/0.25 ML ORAL.SYRIN SL PRN (23:44)
[2017-10-07 00:37] VITALS: BP 122/55
[2017-10-07] MEDS: Morphine ORAL CONCENTRATE* 5 MG/0.25 ML ORAL.SYRIN SL PRN ×7 (02:05→16:05)
[2017-10-07] MEDS: Atropine 1% (ORAL/SL)* 15 ML BTL SL PRN ×4 (02:05→11:01)
--- NOTE | 2017-10-07 08:35 | PN ---
Subjective Date of Service: 10/07/17 Interval History: Patient seen and examined at bedside. Patient is unresponsive to verbal or tactile stimuli. Breathing comfortably. Minimal urine output noted in su catheter. Family History: Unchanged from Admission Social History: Unchanged from Admission Past Medical History: Unchanged from Admission Objective Active Medications: Acetaminophen (Tylenol Tab*) 650 mg PO Q4H PRN PRN Reason: FEVER/PAIN Acetaminophen (Tylenol Supp*) 650 mg CA Q4H PRN PRN Reason: FEVER Albuterol (Ventolin 2.5 Mg/3 Ml Neb.Nurys*) 2.5 mg INH Q4H PRN PRN Reason: SOB/WHEEZING Last Admin: 10/05/17 19:08 Dose: 2.5 mg Atropine Sulfate (Atropine 1% (Oral/Sl)*) 2 drop SL Q2H PRN PRN Reason: secretions Last Admin: 10/07/17 06:27 Dose: 2 reid Lorazepam (Ativan Tab(*)) 0.5 mg PO Q4H PRN PRN Reason: Anxiety/Agitation Morphine Sulfate (Morphine Oral Concentrate*) 5 mg SL Q2H PRN PRN Reason: sob/pain/air hunger Last Admin: 10/07/17 06:27 Dose: 5 mg Ondansetron HCl (Zofran Inj*) 4 mg IV Q4H PRN PRN Reason: NAUSEA/VOMITING Scopolamine (Transderm-Scop 1.5 Mg Patch*) 1 patch TRANSDERM Q72H SOFIE Last Admin: 10/06/17 18:20 Dose: 1 patch Vital Signs - 8 hr 10/07/17 10/07/17 10/07/17 02:04 02:05 04:20 Respiratory 22 22 22 Rate 10/07/17 10/07/17 10/07/17 04:23 06:21 06:27 Respiratory 22 22 22 Rate Oxygen Devices in Use Now: Nasal Cannula Appearance: Elderly male, lying in bed, NAD. Limited examination as patient is comfort care Respiratory: Symmetrical Chest Expansion and Respiratory Effort Cardiovascular: RRR Skin: - - skin is warm, no evidence of mottling Neurological: - - obtunded, unresponsive Lines/Tubes/Other Access: Clean, Dry and Intact Peripheral IV Result Diagrams: 10/06/17 05:46 10/06/17 13:42 Assess/Plan/Problems-Billing Assessment: Mr. 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 - Patient Problems (1) Comfort measures only status Code(s): Z51.5 - ENCOUNTER FOR PALLIATIVE CARE Comment: Decision made by daughter/family on evening of 10/06/17 Palliative care consult pending Continue prn oral morphine, prn lorazepam, scop patch, atropine gtt (2) Encephalopathy Code(s): G93.40 - ENCEPHALOPATHY, UNSPECIFIED Comment: Metabolic, secondary to uremia and elevated ammonia Did not respond to lactulose or medical management in 36 hours Decision made by family for comfort care measures (3) Increased ammonia level Code(s): R79.89 - OTHER SPECIFIED ABNORMAL FINDINGS OF BLOOD CHEMISTRY Comment : Secondary to MORROW and chronic liver failure Now comfort measures only (4) Acute on chronic renal failure Code(s): N17.9 - ACUTE KIDNEY FAILURE, UNSPECIFIED; N18.9 - CHRONIC KIDNEY DISEASE, UNSPECIFIED Comment: Suspect hepatorenal syndrome and post obstructive uropathy Appreciate nephrology consult Comfort care measures (5) Chronic liver failure Code(s): K72.10 - CHRONIC HEPATIC FAILURE WITHOUT COMA Comment: Secondary to cirrhosis, secondary to nonalcoholic steatohepatitis. Now on comfort care measures (6) DVT prophylaxis Comment: No chemoprophylaxis, patient on comfort care (7) DNR (do not resuscitate) Comment: REGGIE reviewed with family on 10/06/17 Now comfort measures only Status and Disposition: Inpatient admit. Palliative care consult pending. Comfort measures only.
[2017-10-07] MEDS: LORazepam TAB(*) 0.5 MG PO PRN ×2 (10:58→16:04)
--- NOTE | 2017-10-07 17:35 | PN ---
Hospitalist Progress Note Date of Service: 10/07/17 Patient found unresponsive and pronounced at 1709. Patient's significant other and daughter were notified of . Autopsy declined. Combat Systems Engineer services offered and declined by family. Please see dictated summary for full details.
--- NOTE | 2017-10-07 21:53 | CONS ---
CONSULTATION REPORT: ADDENDUM: PHYSICAL EXAM: He is obtunded and barely responsive. His pupils are spontaneously reactive to light. He is surprisingly anicteric. His mucous membranes are moist. His chest is clear. The heart revealed a regular rhythm without murmurs. The abdomen is distended. There is a positive fluid wave. I could not feel his liver margin. He had some palmar erythema. There was no spider angiomata noted. His Castanon catheter bag had what appeared to be gross blood in it. DIAGNOSTIC STUDIES/LAB DATA: A review of his laboratory studies reveals a sodium of 135, potassium 3.7, total CO2 30, chloride 94, BUN 135, creatinine 3.4. His AST is 80 with an ALT of 18. IMPRESSION: Acute renal failure. This is most likely due to intravascular volume depletion. His fractional excretion of sodium was 0.9. Discussion in cirrhosis, there is the opening of peripheral arteriovenous channels, which are typically closed. This produces a prerenal state. The kidneys then respond by attempting to retain salt and water. I would recommend that we start him on midodrine 5 mg t.i.d., the dose will probably need to be sequentially increased. I have discussed the case with Sybil Garay. [id number]/[facility] #: [id number] OTF
--- NOTE | 2017-10-08 07:12 | DS ---
CC: Dr. Jesse Haywood; Dr. Torres, Gastroenterology; Dr. Bryson, [facility]; Dr. Husam Nelson, Cardiology * SUMMARY: DATE OF ADMISSION: 10/05/17 DATE OF : 10/07/17 TIME OF : 1708 p.m. PRIMARY CARE PHYSICIAN: Dr. Jesse Haywood. ATTENDING PROVIDER: Rock Haley MD * (DICTATED BY BARBRA LUND NP) CAUSE OF : Cardiopulmonary arrest. SECONDARY CAUSES OF : 1. Metabolic encephalopathy. 2. Elevated ammonia. 3. Hepatic encephalopathy. 4. Uremic encephalopathy. 5. Congestive heart failure. 6. Dehydration. SUMMARY: Mr. Mendosa was a 77-year-old male patient with a past medical history that includes hypertension, COPD, cirrhosis secondary to nonalcoholic steatohepatitis, prostate cancer, history of TIPS procedure, chronic atrial fibrillation, coronary artery disease, congestive heart failure, and history of colon cancer who presented to the ER on 10/05/17 with concern for increased confusion and dyspnea. He was admitted with concern for postobstructive uremia , uremic encephalopathy, and uremic renal failure, as well as hepatic encephalopathy. The patient was treated for his conditions, with no response to lactulose or IV hydration. The patient's renal and hepatic function continued to worsen and the family opted for comfort care measures. On 10/07/17, at 1709, Mr. Mendosa was found unresponsive by nursing staff. Nurse practitioner was called into the room at the time of and he was pronounced at 1709 p.m. Respiration, femoral and carotid pulses, and pupillary reflexes were all absent and according to the DNR order no CPR was initiated. Vivian Robles, the patient's daughter and healthcare proxy was notified of the and the family declined autopsy. Postmortem care is being provided by nursing staff and sausage canner and supportive care services were offered to the family. TIME SPENT: Approximately 35 minutes were spent on this summary. BARBRA LUND NP [id number]/[facility] #: [id number] MTDEric
--- NOTE | 2017-10-08 11:07 | ED ---
Sonia Brock Gabriel, scribed for Deejay Hopkins MD on 10/05/17 at 0058 . Shortness of Breath - HPI Summary HPI Summary: This patient is a 77 year old M BIBA to [facility] accompanied by his and grandson with a chief complaint of SOB since 09/23/17. Patients reports AMS , difficulty breathing, fatigue, constipation, and diarrhea. Patients denies fever, and n/v. Patients states that he wanted to use the bathroom so she assisted him to the toilet and when her sat down he couldnt produce any urine. When he returned to his recliner he sat down and stated that he wanted to use the bathroom. This made her very concerned so she called 911. He has recently been hospitalized for fluid in his lungs and is on diuretics, losing 8 pounds recently. His states that he has not been drinking fluids recently, is sleeping 23 hours a day, and is using 3-4 NC O2. Patient does Duoneb treatments at home and was given two by EMS. - History of Current Complaint Chief Complaint: EDShortnessOfBreath Time Seen by Provider: 10/05/17 00:34 Hx Obtained From: Patient Onset/Duration: Lasting Days, Still Present Timing: Constant Current Severity: Moderate Dyspnea At: Rest Alleviating Factors: Oxygen Associated Signs & Symptoms: Negative - fever n/v - Allergy/Home Medications Allergies/Adverse Reactions: Allergies Allergy/AdvReac Type Severity Reaction Status Date / Time Penicillins Allergy Mild Rash Verified 01/09/17 17:51 Pravastatin Allergy Mild muscle pain Verified 01/09/17 17:51 PMH/Surg Hx/FS Hx/Imm Hx Endocrine/Hematology History: Denies: Hx Diabetes, Hx Thyroid Disease Cardiovascular History: Reports: Hx Angina, Hx Angioplasty, Hx Congestive Heart Failure - CABGX5 2005, Hx Coronary Artery Disease, Hx Hypercholesterolemia, Hx Hypertension, Other Cardiovascular Problems/Disorders - ? OCC AFIB Denies: Hx Pacemaker/ICD, Hx Valvular Heart Disease Respiratory History: Reports: Hx Chronic Obstructive Pulmonary Disease (COPD), Other Respiratory Problems/Disorders - OXYGEN AT 2L NIGHTLY Denies: Hx Asthma Comment Only: Hx Sleep Apnea - POSSIBLE (MOUTH BREATHING) GI History: Reports: Hx Cirrhosis, Hx Gastroesophageal Reflux Disease, Other GI Disorders - liver surgeries,prostate ca Denies: Hx Ulcer History: Reports: Other Problems/Disorders - PROSTATE CANCER WITH 41 RADIATION TREATMENTS - 2005 Denies: Hx Renal Disease Musculoskeletal History: Reports: Hx Arthritis Sensory History: Reports: Hx Contacts or Glasses, Hx Hearing Problem Denies: Hx Hearing Aid Opthamlomology History: Reports: Hx Contacts or Glasses Psychiatric History: Denies: Hx Panic Disorder - Cancer History Cancer Type, Location and Year: Prostate Cancer DX June of 2006. Radiation treatments. [place] [facility] [place] Colon resection 06/10/2007 due to a large precancer tumor, which was benign. TIPS procedure to the liver portal vein stent done 03/18/2013 at [facility] [place]. - Surgical History Surgery Procedure, Year, and Place: 5 stent bypass SX 2006 at [facility]. - EGD BANDING X3. [facility])SAFE FOR 1.5 ONLY IN OTHER FACILITY FILE. 2006 [place] [facility] [place] VENTRAL [place] [facility] [place] BASAL CA EXCISION Hx Anesthesia Reactions: No Infectious Disease History: Yes Infectious Disease History: Denies: Hx Clostridium Difficile, Hx Hepatitis, Hx Human Immunodeficiency Virus (HIV), Hx of Known/Suspected MRSA, Hx Shingles, Hx Tuberculosis, History Other Infectious Disease, Traveled Outside the [place] in Last 30 Days - Family History Known Family History: Positive: Cardiac Disease Negative: Blood Disorder - Social History Alcohol Use: None Alcohol Amount: NONE Substance Use Type: Reports: None Hx Tobacco Use: No Smoking Status (MU): Former Smoker Type: Cigarettes Amount Used/How Often: 2 PPD Length of Time of Smoking/Using Tobacco: 30 YRS Have You Smoked in the Last Year: No Review of Systems Positive: Fatigue. Negative: Fever Negative: Erythema Negative: Sore Throat Negative: Chest Pain Positive: Shortness Of Breath, Other - difficulty breathing. Negative: Cough Positive: Diarrhea, Other - constipation . Negative: Abdominal Pain, Vomiting, Nausea Negative: dysuria, hematuria Negative: Myalgia, Edema Negative: Rash Neurological: Negative - dizziness Positive: Other - AMS All Other Systems Reviewed And Are Negative: Yes Physical Exam - Summary Physical Exam Summary: Constitutional: Well-developed, Well-nourished, Alert. (-) Distressed. Slow to respond Skin: Warm, Dry HENT: Normocephalic; Atraumatic Eyes: Conjunctiva normal Neck: Musculoskeletal ROM normal neck. (-) JVD, (-) Stridor, (-) Tracheal deviation Cardio: Rhythm regular, rate normal, Heart sounds normal; Intact distal pulses; The pedal pulses are 2+ and symmetric. Radial pulses are 2+ and symmetric. (-) Murmur Pulmonary/Chest wall:. (-) Respiratory distress, (+) Wheezes, (-) Rales, tachypnea, diminished lung sounds, Abd: Soft, (-) Tenderness, (-) Distension, (-) Guarding, (-) Rebound Musculoskeletal: (+) 2 + pitting Edema in bilateral LE Lymph: (-) Cervical adenopathy Neuro: Alert, Oriented x3 Psych: Mood and affect Normal Triage Information Reviewed: Yes Vital Signs On Initial Exam: Initial Vitals Pulse Pulse Ox 35 80 10/05/17 00:34 10/05/17 00:34 Vital Signs Reviewed: Yes Diagnostics - Vital Signs Vital Signs Temp Pulse Resp BP Pulse Ox 10/05/17 00:36 97.7 F 60 18 117/41 80 10/05/17 00:34 35 80 - Laboratory Result Diagrams: 10/05/17 01:46 10/05/17 01:46 Lab Statement: Any lab studies that have been ordered have been reviewed, and results considered in the medical decision making process. - Radiology CXR Radiology Interpretation Completed By: ED Physician - pulmonary edema vs pulmonary PNA - EKG 0038 Cardiac Rate: Other Rate EKG Rhythm: Atrial Fibrillation - at 61 BPM EKG Interpretation: No STEMI Course/Dx - Course Assessment/Plan: This patient is a 77 year old M BIBA to [facility] accompanied by his and grandson with a chief complaint of SOB since 09/23/17. Patients reports AMS, difficulty breathing, fatigue, constipation, and diarrhea. Patients denies fever, and n/v. Patients states that he wanted to use the bathroom so she assisted him to the toilet and when her sat down he couldnt produce any urine. When he returned to his recliner he sat down and stated that he wanted to use the bathroom. This made her very concerned so she called 911. He has recently been hospitalized for fluid in his lungs and is on diuretics, losing 8 pounds recently. His states that he has not been drinking fluids recently, is sleeping 23 hours a day, and is using 3-4 NC O2. Patient does Duoneb treatments at home and was given two by EMS. An EKG reveals A-Fib. CXR reveals, pulmonary edema vs pulmonary PNA. Test results with no significant abnormalities except for lactic acid of 2.3 and troponin of 0.06. In the ED course the patient was given IV fluids. We discussed patient care with Dr. Parry and he accepted the patient for admittance. Patient will be admitted. The patient is agreeable with this plan. - Diagnoses Provider Diagnoses: Uremia, Delirium, Acute urinary retention, obstructive renal failure - Physician Notifications Discussed Care of Patient With: Kenny Parry Time Discussed With Above Provider: 02:30 Instructed by Provider To: Admit As Inpatient Discharge - Discharge Plan Condition: Fair Disposition: ADMITTED TO [facility] Referrals: Jesse Haywood DO [Primary Care Provider] - The documentation as recorded by the Sonia hidalgo Gabriel accurately reflects the service I personally performed and the decisions made by , Deejay Hopkins MD.
== END 2017-10-07 17:09 | disposition expired | DRG 441 ==
LOC: ED 00:26 → MEDTELE 02:45
PROVIDERS: ADMIT Internal Medicine; ATTEND Internal Medicine
PROC: 0T9B70Z Drainage of Bladder with Drainage Device, Via Natural or Artificial Opening (ICD-10-PCS; 2017-10-05)
PROC: 0DH67UZ Insertion of Feeding Device into Stomach, Via Natural or Artificial Opening (ICD-10-PCS; principal; 2017-10-06)
PROC: 5A12012 Performance of Cardiac Output, Single, Manual (ICD-10-PCS; 2017-10-07)
DX: K72.10 Chronic hepatic failure without coma (principal); G93.41 Metabolic encephalopathy; I46.9 Cardiac arrest, cause unspecified; N17.9 Acute kidney failure, unspecified; I50.9 Heart failure, unspecified; I13.0 Hypertensive heart and chronic kidney disease with heart failure and stage 1 through stage 4 chronic kidney disease, or unspecified chronic kidney disease; I48.2 Chronic atrial fibrillation; E86.0 Dehydration; Z99.81 Dependence on supplemental oxygen; E78.00 Pure hypercholesterolemia, unspecified; N13.5 Crossing vessel and stricture of ureter without hydronephrosis; N13.9 Obstructive and reflux uropathy, unspecified; K74.60 Unspecified cirrhosis of liver; K75.81 Nonalcoholic steatohepatitis (NASH); Z77.090 Contact with and (suspected) exposure to asbestos; R31.0 Gross hematuria; N18.9 Chronic kidney disease, unspecified; Z66 Do not resuscitate; Z51.5 Encounter for palliative care; I25.10 Atherosclerotic heart disease of native coronary artery without angina pectoris; J44.9 Chronic obstructive pulmonary disease, unspecified; K21.9 Gastro-esophageal reflux disease without esophagitis; M19.90 Unspecified osteoarthritis, unspecified site; H91.90 Unspecified hearing loss, unspecified ear; Z82.49 Family history of ischemic heart disease and other diseases of the circulatory system; Z88.0 Allergy status to penicillin; Z88.8 Allergy status to other drugs, medicaments and biological substances; Z95.1 Presence of aortocoronary bypass graft; Z85.46 Personal history of malignant neoplasm of prostate; Z92.3 Personal history of irradiation; Z87.891 Personal history of nicotine dependence; Z90.49 Acquired absence of other specified parts of digestive tract; Z85.038 Personal history of other malignant neoplasm of large intestine; Z82.3 Family history of stroke
CPT/HCPCS: 36415; 36600; 71010; 71045; 74176; 76775; 80048; 80053; 81003; 81015; 82140; 82550; 82570; 82803; 83605; 83880; 84300; 84484; 85025; 85610; 85730; 87040; 87502; 93005; 94760; A9270-GY; J1644; J2270